=== PATIENT | male | born 1945 | race Caucasian/White ===

== ENCOUNTER 2019-06-05 06:00 | Outpatient (RCR) | payer OTHER, SELFPAY | END 2019-07-05 00:01 | LOC: PULRHB 06:00 | PROVIDERS: Family Provider Emergency Medicine Emergency Medical Services; Visit Provider Emergency Medicine Emergency Medical Services | DX: J44.9 Chronic obstructive pulmonary disease, unspecified (principal) | CPT/HCPCS: G0424 ×6 ==

== ENCOUNTER 2019-07-06 06:00 | Outpatient (RCR) | payer OTHER, SELFPAY | END 2019-08-05 23:59 | disposition home or self-care (01) | LOC: PULRHB 06:00 | PROVIDERS: Family Provider Emergency Medicine Emergency Medical Services; PCP Emergency Medicine Emergency Medical Services; Visit Provider Emergency Medicine Emergency Medical Services | DX: J44.9 Chronic obstructive pulmonary disease, unspecified (principal) | CPT/HCPCS: G0424 ==

== ENCOUNTER 2019-08-09 12:44 | Outpatient (RCR) | payer OTHER, SELFPAY | END 2019-09-03 23:59 | disposition home or self-care (01) | LOC: PULRHB 12:44 | PROVIDERS: Family Provider Emergency Medicine Emergency Medical Services; PCP Emergency Medicine Emergency Medical Services; Visit Provider Emergency Medicine Emergency Medical Services | DX: J44.9 Chronic obstructive pulmonary disease, unspecified (principal) | CPT/HCPCS: G0237; G0238; G0239; G0424 ==

== ENCOUNTER 2021-09-10 08:17 | Emergency (ER) | payer OTHER, MEDICARE, SELFPAY ==
--- NOTE | 2021-09-10 08:20 | ECG_ITS ---
[facility] Test Date: 2021-09-10 Pat Name: Clint Quevedo Department: Room: Gender: Male Hydramatic Specialist: : 1945 Requested By: Florentino Altamirano Order Number: [id number] Gino MD: Emmanuel Oshea M.D. Measurements Intervals [place] Rate: 67 P: 29 [place]: 168 QRS: 81 QRSD: 104 T: 7 QT: 376 QTc: 400 Interpretive Statements SINUS RHYTHM LOW QRS VOLTAGE IN PRECORDIAL LEADS [QRS DEFLECTION < 1.0 mV IN CHEST LEADS] Compared to ECG 09/10/2021 09:46:11 No significant changes Electronically Signed On 09-10-2021 17:33:40 INJECTION MOLDING SUPERVISOR by Emmanuel Oshea M.D. [id number]
--- NOTE | 2021-09-10 08:37 | ECG_ITS ---
[facility] Test Date: 2021-09-10 Pat Name: Clint Quevedo Department: Room: Gender: Male Vp Corporate Development: : 1945 Requested By: Nixon Aguilar Order Number: [id number] Gino MD: Emmanuel Oshea M.D. Measurements Intervals [place] Rate: 64 P: 24 DC: 165 QRS: 72 QRSD: 106 T: 12 QT: 380 QTc: 395 Interpretive Statements SINUS RHYTHM LOW QRS VOLTAGE IN PRECORDIAL LEADS [QRS DEFLECTION < 1.0 mV IN CHEST LEADS] Compared to ECG 09/13/2018 14:33:11 Sinus tachycardia no longer present T-wave abnormality no longer present Electronically Signed On 09-10-2021 17:33:52 HAND RIGGER by Emmanuel Oshea M.D. [id number]
--- NOTE | 2021-09-10 08:37 | XR_ITS ---
WS: [id number] PORTABLE CHEST HISTORY: Lower extremity edema. COMPARISON: 08/18/2007 Lungs are clear and well expanded. No pleural effusion or pneumothorax. Cardiac size: Normal. Mediastinum/Aorta: Normal mediastinum. No osseous abnormality seen. XR/XR chest 1V portable [id number] IMPRESSION: Unremarkable portable chest.
[2021-09-10 08:43] VITALS: BP 158/54; PULSE 68; RESP 26; TEMP 36.2; O2SAT 91; BMI 59.3
[2021-09-10 08:48] VITALS: BP 158/54; PULSE 70; RESP 24; TEMP 36.6; O2SAT 91
--- NOTE | 2021-09-10 09:04 | ED_ITS ---
HPI - SOB/Dyspnea General: Chief Complaint: Shortness of Breath/Dyspnea Stated Complaint: [facility] feet [facility] Time Seen by Provider: 09/10/21 08:19 History of Present Illness: HPI Narrative: Patient is a 76-year-old male who comes to the ED with shortness of breath and bilateral leg and feet swelling. Past medical history of diabetes, hypertensi on, hyperlipidemia and COPD. Patient does not require any oxygen at home. He has inhaler he uses for any shortness of breath. Pt was seen at [facility] and sent over here for further evaluation. Patient says for the past month he has had worsening shortness of breath and swelling in his feet bilaterally. He describes the shortness of breath as mild and slightly worse than his baseline. Shortness of breath worsens with exertion. He is unable to lay flat when he sleeps at night. Patient does have sleep apnea and was using a CPAP at night but stopped using it due to reoccurring nosebleeds. Denies any chest pain, cough, fever, chills, abdominal pain, nausea/vomiting, bladder or bowel symptoms. Associated symptoms: Reports orthopnea; Deny abdominal pain, chest pain, fever(s), nausea, palpitations or vomiting Review of Systems Const: Denies: fever(s), chills or fatigue Eyes: Denies: change in vision or eye discomfort ENMT: Denies: throat pain, odynophagia, nasal discharge or nasal congestion Card: Reports: swelling of feet/ankles, dyspnea on exertion and orthopnea; Denies: chest pain, palpitations or edema Resp: Reports: dyspnea; Denies: productive cough or non-productive cough GI: Denies: abdominal pain, nausea, vomiting, diarrhea, constipation or hematochezia : Denies: flank pain, difficulty urinating, dysuria or hematuria Musc: Denies: neck pain, back pain or extremity swelling Skin/Breast: Denies: rash or new lesions Neuro: Denies: headache(s), numbness in extremities or weakness in extremities [facility] ED PFSH: Medical History COPD (chronic obstructive pulmonary disease) Diabetes Hypertension Surgical History No pertinent past surgical history Physical Exam Const: COMMON NORMALS: patient oriented x3 and alert GENERAL APPEARANCE: cooperative and comfortable NUTRITIONAL APPEARANCE: obese HENMT: COMMON NORMALS: normocephalic HEAD & SCALP: normocephalic MOUTH: Normal oral and palatal mucosa present THROAT: posterior oropharynx normal and uvula midline Neck/C-Spine: COMMON NORMALS: supple GENERAL: Yes normal visual inspection Resp: COMMON NORMALS: normal respiratory effort, No retractions, No use of accessory muscles and clear to auscultation bilaterally AUSCULTATION: clear to auscultation bilaterally Cardio: COMMON NORMALS: regular rate, regular rhythm, S1 normal heart sound present, S2 normal heart sound present, No gallops present (Cardio), No clicks present (Cardio), No murmurs present (Cardio) and Peripheral pulses 2+ througho ut RATE: regular rate RHYTHM: regular rhythm HEART SOUNDS: S1 normal heart sound present and S2 normal heart sound present PERIPHERAL PULSES: Peripheral pulses 2+ throughout GI: COMMON NORMALS: Normal to inspection, nondistended, normoactive bowel sounds present, Soft to palpation, non-tender and no masses INSPECTION: Yes central obesity PALPATION: Yes Soft to palpation : COMMON NORMALS: Yes no CVA tenderness BLADDER/KIDNEY EXAM: Yes no CVA tenderness Back/Pelvis: COMMON NORMALS: no CVA tenderness Extremity: NARRATIVE EXTREMITY EXAM: 1+ pitting edema bilaterally in the lower extremities. Neuro: COMMON NORMALS: patient oriented x3 and moves all extremities SENSORIUM/ORIENTATION: Yes alert Skin: GENERAL SKIN EXAM: dry skin Course ED course: Home O2 study was performed on patient here in the ED and he did not qualify for oxygen. Vital Signs: Vital signs: Vital Signs Temperature 97.8 F 09/10/21 08:48 Pulse Rate 66 09/10/21 11:39 Respiratory Rate 24 H 09/10/21 11:39 Blood Pressure 177/76 09/10/21 11:39 Pulse Oximetry 90 09/10/21 11:39 MDM - SOB/Dyspnea Medical Decision Making Patient is a 76-year-old male comes to the ED with bilateral lower extremity edema and some shortness of breath. Patient has past medical history of COPD, diabetes and hypertension. Leg edema has been going on for the past month. He describes his shortness of breath is mild and a little worse than normal. Denies any chest pain. Vitals are stable. Patient had bilateral 1+ pitting edema in the lower extremities. CBC and CMP were unremarkable. Troponins negative. BNP was normal. Chest x-ray showed no acute findings. EKGs showed sinus rhythm with no ST segment elevation or depression seen. Home O2 eval was ordered and respiratory therapy said patient did not qualify for home oxygen. Patient was given IV Lasix while here in the ED to help with some of his edema. Patient was diagnosed with bilateral lower extremity edema and COPD and was discharged home with a prescription for some prednisone and furosemide to use as needed for edema. He was told to follow-up with his PCP in the next 3 to 5 days for reevaluation. Return to ED precautions given. Patient understood and agreed with plan. Lab Data I reviewed the patient's lab results. : 09/10/21 09:22 09/10/21 09:22 Labs/Radiology: Radiology Impressions Chest X-Ray 09/10/21 08:37 IMPRESSION: Unremarkable portable chest. Laboratory Results WBC 8.9 10^3/uL (4.0-10.0) 09/10/21: RBC 5.06 10^6/uL (4.1-5.3) 09/10/21 09:22 Hgb 12.5 g/dL (11.7-16.6) 09/10/21: Hct 47.1 % (42.0-52.0) 09/10/21: MCV 93.1 fl (80-94) 09/10/21 09: MCH 24.7 pg (28.0-34.0) L 09/10/21: MCHC 26.5 g/dL (30.0-36.0) L 09/10/21: RDW 15.1 % (12.1-15.1) 09/10/21: Plt Count 247 10^3/cmm (130-400) 09/10/21: MPV 10.0 fL (7.4-10.4) 09/10/21: Neut % (Auto) 74.5 % 09/10/21:22 Lymph % (Auto) 14.2 % 09/10/21:22 [place] % (Auto) 7.3 % 09/10/21: Eos % (Auto) 2.7 % 09/10/21:22 Baso % (Auto) 1.1 % 09/10/21 09: Neut # (Auto) 6.58 10^3/uL (1.8-7.7) 09/10/21 09: Lymph # (Auto) 1.3 10^3/uL (0.8-4.8) 09/10/21 09:22 [place] # (Auto) 0.7 10^3/uL (0.2-0.9) 09/10/21 09: Eos # (Auto) 0.2 10^3/uL (0.0-0.8) 09/10/21 09: Baso # (Auto) 0.1 10^3/uL (0.0-0.1) 09/10/21 09: Nucleated RBC % (auto) 0 % 09/10/21 09: Nucleated RBCs # 0.0 /100WBC 09/10/21 09:22 Sodium 138 mmol/L (136-145) 09/10/21 09: Potassium 4.3 mmol/L (3.5-5.1) 09/10/21 09: Chloride 97 mmol/L (98-107) L 09/10/21 09: Carbon Dioxide 30 mmol/L (22-29) H 09/10/21 09:22 Anion Gap 15.3 (5-19) 09/10/21 09:22 BUN 18 mg/dL (8-23) 09/10/21 09:22 Creatinine 1.1 mg/dL (0.7-1.2) 09/10/21 09:22 GFR Calculation Not Reportable 09/10/21 09: Glucose 139 mg/dL (65-115) H 09/10/21 09:22 Calculated Osmolality 290 mOsm/kg (285-295) 09/10/21 09: Calcium 9.5 mg/dL (8.5-10.5) 09/10/21 09:22 Total Bilirubin 0.4 mg/dL (0.15-1.2) 09/10/21 09:22 AST 18 U/L (0-40) 09/10/21 09:22 ALT 14 U/L (0-41) 09/10/21 09:22 Alkaline Phosphatase 65 IU/L (40-130) 09/10/21 09: Troponin T Baseline 19 ng/L (0-15) H 09/10/21 09:22 Troponin T 120 Minute 17.44 ng/L (0-15) H 09/10/21 11:30 Delta Troponin T -1.56 ABS# (0-10) L 09/10/21 11:30 NT-Pro-B Natriuret Pep 277 pg/mL (0-450) 09/10/21 09:22 Total Protein 6.9 g/dL (6.6-8.7) 09/10/21 09: Albumin 3.9 g/dL (3.5-5.2) 09/10/21 09: Globulin 3.0 g/dL (1.3-4.6) 09/10/21 09:22 Urine Color Yellow (Yellow) 09/10/21 10:00 Urine Appearance Clear (CLEAR) 09/10/21 10:00 Urine pH 7 (5-7) 09/10/21 10:00 Ur Specific [place] 1.005 (1.005-1.030) 09/10/21 10:00 Urine Protein Neg (Negative) 09/10/21 10:00 Urine Glucose (UA) Norm (Normal) 09/10/21 10:00 Urine Ketones Negative (Negative) 09/10/21 10:00 Urine Blood Neg (Negative) 09/10/21 10:00 Urine Nitrate Negative (Negative) 09/10/21 10:00 Urine Bilirubin Neg (Negative) 09/10/21 10:00 Urine Urobilinogen Norm mg/dL (Negative) 09/10/21 10:00 Ur Leukocyte Esterase 1+ (Negative) H 09/10/21 10:00 Urine RBC 0-4 /hpf (0-2) H 09/10/21 10:00 Urine WBC 5-10 /hpf (0-5) H 09/10/21 10:00 Ur Squamous Epith Cells 0-4 /hpf (0-5) H 09/10/21 10:00 Amorphous Sediment Not Reportable 09/10/21 10:00 Urine Bacteria Trace /hpf (NONE) 09/10/21 10:00 Hyaline Casts Rare /lpf 09/10/21 10:00 Urine Mucus Trace /hpf 09/10/21 10:00 EKG Data EKG 1: EKG Interpretation Date: 09/10/21 Interpretation: Sinus rhythm, no ST segment elevation or depression seen. 68 bpm. EKG 2: EKG Interpretation Date: 09/10/21 Interpretation: 2-hour EKG?sinus rhythm, 67 bpm, no ST segment elevation or depression noted. No changes seen comparing previous EKG to current one. Discharge Plan Discharge Patient Disposition: Home Clinical Impression: Bilateral lower extremity edema COPD (chronic obstructive pulmonary disease) Qualifiers: COPD type: unspecified COPD Qualified Code(s): J44.9 - Chronic obstructive pulmonary disease, unspecified Condition: Stable Prescriptions: New furosemide 20 mg tablet 20 mg PO QAM PRN (Reason: edema) Qty: 5 0RF prednisone 20 mg tablet 20 mg PO BID 3 Days Qty: 6 0RF Discharge Orders: Discharge ED (Routine); Ordered 09/10/21 Ordered By: Nixon Aguilar Referrals: Shukri Corral, [Primary Care Provider] - Discharge Diet: Regular Discharge Activity: Increase activity as tolerated Patient Instructions: COPD, Leg Edema (ED) Activity Restrictions/Additional Instructions: Follow-up with medical provider as directed in the next 5 to 7 days for reevaluation. Take medications as prescribed. You can start taking your first dose of prednisone today. Do not start your furosemide till tomorrow at the earliest, since you got a dose here in the ED. You can take the prescribed furosemide as needed daily for any leg edema. return to the ER or your medical provider if condition worsens. Please read and understand discharge instructions. Thank you for choosing [facility] for your healthcare needs today. Please realize this is an emergency room and that we are providing you with a medical screening exam and this may not be complete and all inclusive of all the testing and or work up that you may need to determine your ailment or severity of your illness. It is very important that you follow up as instructed or that you return to the Emergency Department should you have concerns or if your condition changes or worsens in any way. Coding Level of Care Code ED Station Worker for Umesh Mercado Exam Comprehensive
[2021-09-10 09:28] LABS: Basophils # 0.1 10^3/uL (0.0-0.1); Basophils % 1.1 %; Eosinophils # 0.2 10^3/uL (0.0-0.8); Eosinophils % 2.7 %; Hematocrit 47.1 % (42.0-52.0); Hemoglobin 12.5 g/dL (11.7-16.6); Lymphocytes # 1.3 10^3/uL (0.8-4.8); Lymphocytes % 14.2 %; Mean Corpuscular HGB Conc 26.5 g/dL (30.0-36.0); Mean Corpuscular Hemoglobin 24.7 pg (28.0-34.0); Mean Corpuscular Volume 93.1 fl (80-94); Monocytes # 0.7 10^3/uL (0.2-0.9); Monocytes % 7.3 %; Neutrophils # 6.58 10^3/uL (1.8-7.7); Neutrophils % 74.5 %; Nucleated Red Blood Cells % 0 %; Platelet Count 247 10^3/cmm (130-400); Red Blood Count 5.06 10^6/uL (4.1-5.3); Red Cell Distribution Width 15.1 % (12.1-15.1); White Blood Count 8.9 10^3/uL (4.0-10.0)
[2021-09-10 09:53] LABS: Troponin(5th) Baseline 19 ng/L (0-15)
[2021-09-10 09:58] LABS: Alanine Aminotransferase 14 U/L (0-41); Albumin Level 3.9 g/dL (3.5-5.2); Alkaline Phosphatase 65 IU/L (40-130); Anion Gap 15.3 (5-19); Aspartate Amino Transferase 18 U/L (0-40); Blood Urea Nitrogen 18 mg/dL (8-23); Calcium 9.5 mg/dL (8.5-10.5); Carbon Dioxide 30 mmol/L (22-29); Chloride 97 mmol/L (98-107); Glucose 139 mg/dL (65-115); NT Pro B Type Natriuretic Pept 277 pg/mL (0-450); Osmolality Calculated 290 mOsm/kg (285-295); Potassium 4.3 mmol/L (3.5-5.1); Sodium 138 mmol/L (136-145); Total Bilirubin 0.4 mg/dL (0.15-1.2); Total Protein 6.9 g/dL (6.6-8.7)
[2021-09-10] MEDS: FUROsemide 10 mg/mL SDV 2mL 20 MG IVP (10:30)
[2021-09-10 10:32] LABS: Glucose Urine UA Norm (Normal); Ketones Urine Negative (Negative); Protein Urine Neg (Negative); Specific Gravity, Urine 1.005 (1.005-1.030); Urine Appearance Clear (CLEAR); Urine Color Yellow (Yellow); pH Urine 7 (5-7)
[2021-09-10 10:33] LABS: Add Urine Microscopic? YES; Bilirubin Urine Neg (Negative); Blood Urine Neg (Negative); Leukocyte Esterase Urine 1+ (Negative); Nitrate Urine Negative (Negative); Urobilinogen Urine Norm (Negative)
[2021-09-10 10:37] VITALS: O2SAT 92; O2SAT 95
[2021-09-10 10:43] LABS: Add Urine Culture? No; Bacteria Urine TRACE /hpf; Hyaline Casts Urine RARE /lpf; Mucus Urine TRACE /hpf; RBC Urine 0-4 /hpf (0-2); Squamous Epithelial Cell Urine 0-4 /hpf (0-5)
[2021-09-10 11:39] VITALS: BP 177/76; PULSE 66; RESP 24; O2SAT 90
[2021-09-10 12:00] LABS: Troponin 5 2HR 17.44 ng/L (0-15)
[2021-09-10 12:03] LABS: Troponin 5 2HR Delta -1.56 ABS# (0-10)
== END 2021-09-10 12:50 | disposition home or self-care (01) ==
PROVIDERS: Family Medicine; Emergency Provider Physician Assistant; PCP Emergency Medicine Emergency Medical Services
DX: J44.9 Chronic obstructive pulmonary disease, unspecified (principal); R60.0 Localized edema; E11.9 Type 2 diabetes mellitus without complications; I10 Essential (primary) hypertension
CPT/HCPCS: 36415; 71045; 80053; 81001; 83880; 84484; 85025; 93005; 94760; 96374; 99284; J1940

== ENCOUNTER 2021-11-05 10:55 | Inpatient (IN) | payer OTHER, SELFPAY ==
[2021-11-05] VITALS (14 sets, daily range): BP systolic 140–173; BP diastolic 66–97; PULSE 59–100; RESP 17–22; TEMP 36.8–37.1; O2SAT 91–99; BMI 64.5
--- NOTE | 2021-11-05 11:13 | W.ED.SOB ---
HPI - SOB/Dyspnea General: Chief Complaint: Shortness of Breath/Dyspnea Stated Complaint: [facility] Time Seen by Provider: 11/05/21 11:12 History of Present Illness: HPI Narrative: Mr. Quevedo is a 76-year-old gentleman with significant past medical history of hypertension, hyperlipidemia, diabetes, likely heart failure, and chronic hypoxic respiratory failure on 2 L baseline who presents to the emergency department due to shortness of breath. [facility]. Apparently few months ago he was started on oxygen for shortness of breath especially with exertion and this had helped his symptoms until this morning when he became more short of breath. He denies associated infectious symptoms. has noticed perhaps more lower extremity edema though the patient himself is unsure how much worse this is than normal. He was previously taking Lasix just as needed and did not take it frequently. Overall course of symptoms has been worsening. Intensity is moderate to severe and worse with exertion. No other specific changes in health, exacerbating, or alleviating factors identified. Pertinent past history: COPD, congestive heart failure and diabetes Onset (ago): hour(s) Timing: constant Severity: moderate Exacerbating factors: exertion Associated symptoms: Reports no associated symptoms Review of Systems General: Reports: 10 or more systems reviewed and unremarkable except in HPI and below PFSH ED PFSH: Medical History Avascular necrosis of femoral head BPH (benign prostatic hyperplasia) COPD (chronic obstructive pulmonary disease) Diabetes Hypertension Obesity Surgical History History of cholecystectomy Family History (Updated 11/05/21 @ 16:35 by Madi Antonio MD) Father CAD (coronary artery disease) Mother Perforated viscus Social History Smoking and tobacco status: former smoker Physical Exam Const: COMMON NORMALS: alert GENERAL APPEARANCE: cooperative and well developed NUTRITIONAL APPEARANCE: obese HENMT: COMMON NORMALS: normocephalic and atraumatic HEAD & SCALP: normocephalic and atraumatic Eye: COMMON NORMALS: conjunctivae normal CONJUNCTIVA: Yes conjunctivae normal SCLERA: sclerae normal Neck/C-Spine: COMMON NORMALS: supple GENERAL: Yes trachea midline Resp: EFFORT & INSPECTION: Yes able to speak in complete sentences AUSCULTATION: wheezes (Mild end expiratory) and diminished lung sounds Cardio: COMMON NORMALS: regular rate and regular rhythm RATE: regular rate RHYTHM: regular rhythm GI: COMMON NORMALS: Soft to palpation PALPATION: Yes Soft to palpation and No Tenderness to palpation present (GI) PERCUSSION: normal to percussion Extremity: GENERAL: Yes normal exam except as noted and Yes edema (2+ to 3+ bilateral lower extremity) Neuro: COMMON NORMALS: moves all extremities SENSORIUM/ORIENTATION: Yes alert and No Orientation impaired Psych: COMMON NORMALS: mental status grossly normal and Normal thought process present THOUGHT PROCESS: Normal thought process present Course ED course: - Patient was seen and evaluated by me at bedside - Patient placed on cardiac monitors, IV access obtained - Initial evaluation notable for exam as above. - Labs and xrays personally interpreted by me. EKG from 1154 personally interpreted shows left bundle branch block, sinus rhythm, no STEMI. There are EKGs from recently that do not show bundle-branch block -RT treatment ordered - Labs notable for no leukocytosis, normocytic anemia. Metabolic panel without acute derangement, renal function borderline. BNP mildly elevated, delta troponin is negative. - Imaging notable for no pneumonia or pneumothorax -Lasix given - Upon serial reexamination after treatment the patient was similar - Based on patient history, evaluation, and testing as interpreted the most likely cause of the patient's condition is shortness of breath and uncertain etiology. Additionally patient has new onset left bundle branch block though in the context of negative delta troponin I do not believe that the patient needs to emergently go to [facility] from the ED - The results of ED evaluation were discussed with the patient including plan for admission due to requirement for level of care not available if discharged to prevent significant worsening/deterioration. Specifically the patient has marked limitation in exertional tolerance and essentially any activity including ADLs causes worsening shortness of breath. - Admitting service was contacted and Dr Antonio with the hospitalist service agreed to admit the patient - Patient was admitted without further deterioration or significant events. Note: Click bubbles or prepopulated verma in note writing are used for assistance with data collection and billing and are inherently more limited than narrative and other text portions of this note. Please use narrative for additional clinical history and defer to narrative/free test for any case of contradictory information. If information appears in only free text or click bubble it should be considered present or absent as reported. Please contact note magnetic tape typewriter operator for clarifications of clinical information or contradictory information. MDM is a brief summary, contradictory or erroneous seeming information should be clarified and full note should be reviewed. Vital Signs: Vital signs: Vital Signs Temperature 97.6 F 11/07/21 20:00 Pulse Rate 68 11/07/21 20:52 Respiratory Rate 24 H 11/07/21 20:52 Blood Pressure 148/65 11/07/21 20:00 Pulse Oximetry 95 11/07/21 20:52 MDM - SOB/Dyspnea Medical Decision Making 76-year-old gentleman without history of diagnosed heart disease presenting with worsening shortness of breath and edema. Patient found to have peripheral edema, no negative delta troponin. There is a new left bundle branch block. Offered possible disposition options though recommended admission which patient is agreeable with. Admitted for further cardiac evaluation and evaluation of edema with worsening shortness of breath. Medical Records I reviewed the patient's medical records. Lab Data I reviewed the patient's lab results. : 11/07/21 04:26 11/07/21 04:26 Labs/Radiology: Radiology Impressions Chest X-Ray 11/05/21 11:23 IMPRESSION: No acute findings. Laboratory Results WBC 11.2 10^3/uL (4.0-10.0) H 11/06/21 04:20 RBC 4.74 10^6/uL (4.1-5.3) 11/06/21 04:20 Hgb 11.6 g/dL (11.7-16.6) L 11/06/21 04:20 Hct 43.2 % (42.0-52.0) 11/06/21 04:20 MCV 91.1 fl (80-94) 11/06/21 04:20 MCH 24.5 pg (28.0-34.0) L 11/06/21 04:20 MCHC 26.9 g/dL (30.0-36.0) L 11/06/21 04:20 RDW 15.5 % (12.1-15.1) H 11/06/21 04:20 Plt Count 236 10^3/cmm (130-400) 11/06/21 04:20 MPV 10.4 fL (7.4-10.4) 11/06/21 04:20 Neut % (Auto) 74.1 % 11/06/21 04:20 Lymph % (Auto) 12.1 % 11/06/21 04:20 [place] % (Auto) 9.6 % 11/06/21 04:20 Eos % (Auto) 3.1 % 11/06/21 04:20 Baso % (Auto) 0.7 % 11/06/21 04:20 Neut # (Auto) 8.29 10^3/uL (1.8-7.7) H 11/06/21 04:20 Lymph # (Auto) 1.4 10^3/uL (0.8-4.8) 11/06/21 04:20 [place] # (Auto) 1.1 10^3/uL (0.2-0.9) H 11/06/21 04:20 Eos # (Auto) 0.4 10^3/uL (0.0-0.8) 11/06/21 04:20 Baso # (Auto) 0.1 10^3/uL (0.0-0.1) 11/06/21 04:20 Nucleated RBC % (auto) 0 % 11/06/21 04:20 Nucleated RBCs # 0.0 /100WBC 11/06/21 04:20 Sodium 143 mmol/L (136-145) 11/06/21 04:20 Potassium 4.1 mmol/L (3.5-5.1) 11/06/21 04:20 Chloride 96 mmol/L (98-107) L 11/06/21 04:20 Carbon Dioxide 34 mmol/L (22-29) H 11/06/21 04:20 Anion Gap 17.1 (5-19) 11/06/21 04:20 BUN 18 mg/dL (8-23) 11/06/21 04:20 Creatinine 1.2 mg/dL (0.7-1.2) 11/06/21 04:20 GFR Calculation Not Reportable 11/06/21 04:20 Glucose 124 mg/dL (65-115) H 11/06/21 04:20 POC Glucose 140 mg/dL (70-110) H 11/06/21 06:35 Estimat Average Glucose 146 11/06/21 04:20 Hemoglobin A1c 6.7 % (4.0-6.0) H 11/06/21 04:20 Calculated Osmolality 299 mOsm/kg (285-295) H 11/06/21 04:20 Lactate 1.0 mmol/L (0.5-2.2) 11/05/21 13:30 Calcium 9.7 mg/dL (8.5-10.5) 11/06/21 04:20 Phosphorus 3.6 mg/dL (2.5-4.5) 11/06/21 04:20 Magnesium 2.0 mg/dL (1.7-2.3) 11/06/21 04:20 Total Bilirubin 0.6 mg/dL (0.15-1.2) 11/06/21 04:20 AST 19 U/L (0-40) 11/06/21 04:20 ALT 18 U/L (0-41) 11/06/21 04:20 Alkaline Phosphatase 77 IU/L (40-130) 11/06/21 04:20 Troponin T Gen 5 ng/L 20 ng/L (0-15) H 11/06/21 04:20 Troponin T Baseline 17 ng/L (0-15) H 11/05/21 13:30 Troponin T 120 Minute 18.24 ng/L (0-15) H 11/05/21 16:15 Delta Troponin T 1.24 ABS# (0-10) 11/05/21 16:15 NT-Pro-B Natriuret Pep 532 pg/mL (0-450) H 11/06/21 04:20 NT-Pro-B Natriuret Pep Cancelled 11/06/21 04:20 Total Protein 7.1 g/dL (6.6-8.7) 11/06/21 04:20 Albumin 3.9 g/dL (3.5-5.2) 11/06/21 04:20 Globulin 3.2 g/dL (1.3-4.6) 11/06/21 04:20 Triglycerides 165 mg/dL (0-150) H 11/06/21 04:20 Triglycerides Cancelled 11/06/21 04:20 Cholesterol 142 mg/dL (0-200) 11/06/21 04:20 Cholesterol Cancelled 11/06/21 04:20 LDL Cholesterol, Calc 72 mg/dL (50-129) 11/06/21 04:20 LDL Cholesterol, Calc Cancelled 11/06/21 04:20 HDL Cholesterol 37 mg/dL (60-100) L 11/06/21 04:20 HDL Cholesterol Cancelled 11/06/21 04:20 LDL/HDL Ratio 1.95 RATIO (0.00-3.22) 11/06/21 04:20 LDL/HDL Ratio Cancelled 11/06/21 04:20 Cholesterol/HDL Ratio 3.84 mg/dL (1.0-5.00) 11/06/21 04:20 Cholesterol/HDL Ratio Cancelled 11/06/21 04:20 TSH 1.84 uIU/mL (0.27-4.20) 11/05/21 16:15 Discharge Plan Discharge Patient Disposition: Placed in Observation Admit Provider: Madi Antonio Clinical Impression: Shortness of breath, Leg edema, New onset left bundle branch block (LBBB) Coding Level of Care Code ED Monologist for Chg Fwd Exam Comprehensive
--- NOTE | 2021-11-05 11:23 | XRR_ITS ---
PROCEDURE INFORMATION: Exam: XR Chest Exam date and time: 11/05/2021 11:35 AM Age: 76 years old Clinical indication: Shortness of breath; Additional info: SOB TECHNIQUE: Imaging protocol: XR of the chest. Views: 1 view. COMPARISON: CR XR chest 1V portable [id number] 09/10/2021 8:58 AM FINDINGS: Lungs: Unremarkable. No consolidation. Pleural spaces: Unremarkable. No pleural effusion. No pneumothorax. Heart/Mediastinum: Unremarkable. No cardiomegaly. Bones/joints: Unremarkable. XR/XR chest 1V portable [id number] IMPRESSION: No acute findings.
--- NOTE | 2021-11-05 11:24 | ECG_ITS ---
[facility] Test Date: 2021-11-05 Pat Name: Clint Quevedo Department: Room: Gender: Male Plant Physiology Teacher: : 1945 Requested By: Con Gao Order Number: [id number] Gino MD: Emmanuel Oshea M.D. Measurements Intervals [place] Rate: 73 P: 44 DC: 195 QRS: -46 QRSD: 159 T: 86 QT: 407 QTc: 451 Interpretive Statements SINUS RHYTHM LEFT AXIS DEVIATION [QRS AXIS < -30] LEFT BUNDLE BRANCH BLOCK [120+ ms QRS DURATION, 80+ ms Q/S IN V1/V2, 85+ ms R IN I/aVL/V5/V6] Compared to ECG 09/10/2021 10:35:27 Left-axis deviation now present Left bundle-branch block now present Electronically Signed On 11-05-2021 20:48:46 CDT by Emmanuel Oshea M.D. [id number]
[2021-11-05] MEDS: ipratropium-albuterol 3 mL Neb INHALATION (11:49)
[2021-11-05 12:17] LABS: Basophils # 0.1 10^3/uL (0.0-0.1); Basophils % 0.7 %; Eosinophils # 0.2 10^3/uL (0.0-0.8); Eosinophils % 2.2 %; Hematocrit 41.7 % (42.0-52.0); Hemoglobin 11.5 g/dL (11.7-16.6); Lymphocytes # 1.1 10^3/uL (0.8-4.8); Lymphocytes % 11.1 %; Mean Corpuscular HGB Conc 27.6 g/dL (30.0-36.0); Mean Corpuscular Hemoglobin 24.9 pg (28.0-34.0); Mean Corpuscular Volume 90.5 fl (80-94); Mean Platelet Volume 10.9 fL (7.4-10.4); Monocytes # 0.7 10^3/uL (0.2-0.9); Monocytes % 7.4 %; Neutrophils # 7.59 10^3/uL (1.8-7.7); Neutrophils % 78.3 %; Nucleated Red Blood Cells % 0 %; Platelet Count 264 10^3/cmm (130-400); Red Blood Count 4.61 10^6/uL (4.1-5.3); Red Cell Distribution Width 15.8 % (12.1-15.1); White Blood Count 9.7 10^3/uL (4.0-10.0)
[2021-11-05] MEDS: FUROsemide 10 mg/mL SDV 4mL 40 MG IVP ×2 (14:03→20:47)
[2021-11-05 14:05] LABS: Troponin(5th) Baseline 17 ng/L (0-15)
[2021-11-05 14:12] LABS: Albumin Level 3.5 g/dL (3.5-5.2); Alkaline Phosphatase 71 IU/L (40-130); Blood Urea Nitrogen 19 mg/dL (8-23); Calcium 8.5 mg/dL (8.5-10.5); Carbon Dioxide 27 mmol/L (22-29); Chloride 98 mmol/L (98-107); Globulin 3.2 g/dL (1.3-4.6); Glucose 121 mg/dL (65-115); Osmolality Calculated 288 mOsm/kg (285-295); Sodium 137 mmol/L (136-145); Total Bilirubin 0.5 mg/dL (0.15-1.2); Total Protein 6.7 g/dL (6.6-8.7)
[2021-11-05 14:13] LABS: Alanine Aminotransferase 18 U/L (0-41); Anion Gap 16.5 (5-19); Aspartate Amino Transferase 23 U/L (0-40); Potassium 4.5 mmol/L (3.5-5.1)
--- NOTE | 2021-11-05 16:31 | PM.HP ---
Providers/Chief Complaint Primary Care Provider: Shukri Corral DO Chief Complaint: [facility] unspecified History of Present Illness Clint Quevedo is a 76 year old male with a prior history of smoking, COPD, history of bilateral lower extremity edema, history of fzl-[id number] type 2 diabetes mellitus, BPH, hypertension, hyperlipidemia, who presents to [facility] due to worsening shortness of breath and lower extremity edema. Patient tells me that over the last year he has developed more significant bilateral extremity edema. But recently over the last few days he has developed significant worsening of lower extremity edema, he is states he has gained over 100 pounds in the last year. He has been also more short of breath, with exertion. He uses oxygen as needed at home. No history of CPAP use. No history of BiPAP use. Denies any chest pain. No palpitations. No cardiovascular history. No fever. Does have a chronic cough. No sick contacts, has received all 3 COVID vaccines, flu vaccine, no cardiovascular history Review of Systems Const: Denies: fever(s), chills, fatigue or malaise Eyes: Denies: change in vision or blurry vision ENMT: Denies: nasal congestion Resp: Denies: wheezing GI: Denies: abdominal pain, nausea, vomiting, diarrhea or hematochezia : Denies: dysuria Musc: Denies: back pain Neuro: Denies: dizziness Endo: Denies: polyuria or polydipsia Medications/Allergies Home Medications Medication Instructions Recorded Confirmed Last Taken Type furosemide 20 mg tablet 20 mg PO QAM PRN #5 tab 09/10/21 11/05/21 Unknown Rx albuterol sulfate 90 mcg/actuation 2 puff INHALATION QID PRN 11/05/21 11/05/21 Unknown History aerosol inhaler ferrous sulfate 325 mg (65 mg 325 mg PO DAILY 11/05/21 11/05/21 11/05/21 History iron) tablet finasteride 5 mg tablet 5 mg PO DAILY 11/05/21 11/05/21 11/04/21 History fluticasone 250 mcg-salmeterol 50 1 inh INHALATION BID 11/05/21 11/05/21 Unknown History mcg/dose blistr powdr for inhalation (Advair Diskus) metformin 1,000 mg tablet 500 mg PO DAILY 11/05/21 11/05/2111/05/22 History metoprolol tartrate 100 mg tablet 50 mg PO BID 11/05/21 11/05/21 11/05/21 History nystatin 100,000 unit/gram topical 1 applic TOPICAL TID PRN 11/05/21 11/05/21 Unknown History cream pantoprazole 40 mg tablet,delayed 40 mg PO DAILY 11/05/21 11/05/21 11/05/21 History release rosuvastatin 10 mg tablet 5 mg PO DAILY 11/05/21 11/05/21 11/04/21 History tamsulosin 0.4 mg capsule 0.8 mg PO DAILY 11/05/21 11/05/21 11/05/21 History zinc oxide 20 % topical ointment 1 applic TOPICAL TID PRN 11/05/21 11/05/21 Unknown History Allergies Allergy/AdvReac Type Severity Reaction Status Date / Time No Known Allergies Allergy Verified 11/05/21 11:02 PFSH Acute PFSH: Medical History Avascular necrosis of femoral head BPH (benign prostatic hyperplasia) COPD (chronic obstructive pulmonary disease) Diabetes Hypertension Obesity Surgical History History of cholecystectomy Family History (Updated 11/05/21 @ 16:35 by Madi Antonio MD) Father CAD (coronary artery disease) Mother Perforated viscus Social History Smoking and tobacco status: former smoker Vitals/I&O/Wt Last Vital Signs Temp 98.7 F 11/05/21 11:04 Pulse 72 11/05/21 14:00 Resp 18 11/05/21 14:00 BP 141/90 11/05/21 14:00 Pulse Ox 95 11/05/21 14:00 Weight last 48 hrs Weight 165.108 kg Physical Exam Const: COMMON NORMALS: no acute distress and patient oriented x3 HENMT: COMMON NORMALS: normocephalic HEAD & SCALP: normocephalic Eye: COMMON NORMALS: Equal, round and reactive pupils present and EOMs intact bilaterally Neck/C-Spine: COMMON NORMALS: full ROM, no lymphadenopathy and no JVD Resp: COMMON NORMALS: normal respiratory effort, No retractions, No use of accessory muscles and clear to auscultation bilaterally AUSCULTATION: clear to auscultation bilaterally Cardio: COMMON NORMALS: regular rate, regular rhythm, S1 normal heart sound present and S2 normal heart sound present RATE: regular rate RHYTHM: regular rhythm HEART SOUNDS: S1 normal heart sound present and S2 normal heart sound present GI: COMMON NORMALS: Normal to inspection, nondistended, normoactive bowel sounds present, Soft to palpation and non-tender Extremity: NARRATIVE EXTREMITY EXAM: 2+ pitting edema bilateral lower extremities Neuro: COMMON NORMALS: patient oriented x3, CN's II-XII intact bilaterally, moves all extremities and no focal motor deficits Psych: COMMON NORMALS: mental status grossly normal Data : 11/05/21 12:09 11/05/21 13:30 A&P Assessment and plan (1) Shortness of breath: Status: Acute (2) Leg edema: Status: Acute (3) New onset left bundle branch block (LBBB): Status: Acute Plan Bilateral lower extremity edema, with shortness of breath concerning for fluid overload -Highly likely suspicious for diastolic CHF exacerbation -We will order echocardiogram -Lasix 40 mg IV twice daily -Fluid restrictions at 1000 cc -Maintain potassium greater than 4, magnesium greater than 2 -Encourage ambulation -DNR/DNI, confirmed with patient, family at bedside -Lovenox for DVT prophylaxis New onset left bundle branch block -No complaints of chest pain -Serial EKGs, serial troponins -Cardiac echo -Aspirin, statin, beta-cyn Type 2 diabetes mellitus, low-dose sliding scale COPD not in exacerbation, DuoNeb as needed Attestations Medical Necessity Statement*: Patient requires hospitalization, outpatient with observation, for bilateral extremity edema, fluid overload Coding Level of Care Code Acute Outer Diameter Technician for Chg Fwd Diagnoses Shortness of breath R06.02 Leg edema R60.0 New onset left bundle branch block (LBBB) I44.7
[2021-11-05 17:12] LABS: NT Pro B Type Natriuretic Pept 570 pg/mL (0-450); Thyroid Stimulating Hormone 1.84 uIU/mL (0.27-4.20); Troponin 5 2HR 18.24 ng/L (0-15)
[2021-11-05 17:17] LABS: Troponin 5 2HR Delta 1.24 ABS# (0-10)
--- NOTE | 2021-11-05 17:24 | ECG_ITS ---
[facility] Test Date: 2021-11-05 Pat Name: Clint Quevedo Department: Room: 102 Gender: Male Cyber Operator: : 1945 Requested By: Con Gao Order Number: [id number] Gino MD: Emmanuel Oshea M.D. Measurements Intervals [place] Rate: 63 P: 78 MD: 217 QRS: -48 QRSD: 170 T: 87 QT: 452 QTc: 465 Interpretive Statements SINUS RHYTHM WITH FIRST DEGREE AV BLOCK LEFT AXIS DEVIATION [QRS AXIS < -30] LEFT BUNDLE BRANCH BLOCK [120+ ms QRS DURATION, 80+ ms Q/S IN V1/V2, 85+ ms R IN I/aVL/V5/V6] Compared to ECG 11/05/2021 11:54:32 First degree AV block now present Electronically Signed On 11-05-2021 22:33:10 CDT by Emmanuel Oshea M.D. [email or web address].[email or web address]/store/[id number]
--- NOTE | 2021-11-05 17:47 | USCV_ITS ---
Clint Quevedo Age: 76 Gender: M : 1945 Exam Date: 11/05/2021 18:57 Ordering Phys: Madi Antonio MD Technologist: CKArlen Exam Location: [facility] [place] Indication: Shortness of breath BP: 172 / 66 HR: 70 Rhythm: Sinus Technical Quality: Adequate MEASUREMENTS (Male / Female) Normal Values 2D ECHO LV Diastolic Diameter PLAX 4.2 cm 4.2 - 5.9 / 3.9 - 5.3 cm LV Systolic Diameter PLAX 2.2 cm IVS Diastolic Thickness 0.9 cm 0.6 - 1.0 / 0.6 - 0.9 cm IVS Systolic Thickness 0.9 cm LVPW Diastolic Thickness 1.4 cm 0.6 - 1.0 / 0.6 - 0.9 cm LVPW Systolic Thickness 1.4 cm LVOT Diameter 1.9 cm LV Ejection Fraction 2D Teich 79.7 % LV Ejection Fraction MOD 2C 66.8 % LV Ejection Fraction 2C AL 68.9 % LA Diameter 3.6 cm Aorta at Sinotubular Diameter 2.1 cm M-MODE Aortic Annulus Diameter 2.9 cm LA Ao Ratio MM 1.2 DOPPLER AV Peak Velocity 122.7 cm/s LVOT Peak Velocity 123.0 cm/s AV Area Cont Eq vti 3.5 cm squared AV Area Cont Eq pk 2.8 cm squared MV Peak Velocity 134.0 cm/s MV Area PHT 3.5 cm squared Mitral E to A Ratio 1.3 MV E' Velocity 131.0 cm/s TR Peak Velocity 213.1 cm/s TR Peak Gradient 18.2 mmHg TR Mean Velocity 84.1 cm/s TR Mean Gradient 3.3 mmHg TR Velocity Time Integral 29.4 cm Right Atrial Pressure 15.0 mmHg Pulmonary Artery Systolic Pressu 33.2 mmHg PV Peak Velocity 167.0 cm/s RV Acceleration Time 0.1 s RV Ejection Time 0.3 s RV AcT/ET 0.3 FINDINGS Left Ventricle Normal left ventricular cavity size. Normal left ventricular systolic function. Left ventricular ejection fraction is estimated at 60%. Abnormal septal motion consistent with conduction abnormality. Right Ventricle Right ventricle not well visualized. Probably normal right ventricle size and systolic function. Right Atrium Right atrium not well visualized. Right atrial pressure estimated at 8 mmHg. Left Atrium Left atrium not well visualized. Mitral Valve Mitral valve not well visualized. No mitral valve stenosis. No significant mitral valve regurgitation. Aortic Valve Aortic valve not well visualized. No aortic valve stenosis. No aortic valve regurgitation. Tricuspid Valve Tricuspid valve not well visualized. Pulmonic Valve Pulmonic valve not well visualized. No significant pulmonary valve regurgitation. Pericardium No pericardial effusion. Aorta Normal size aortic root and proximal ascending aorta. Normal- sized inferior vena cava with decreased respiratory variation. CONCLUSIONS 1. This is a technically difficult study. Ultrasound enhancing agent Optison was used per protocol. 2. Normal left ventricular cavity size and systolic function. Left ventricular ejection fraction is estimated at 60%. Abnormal septal motion consistent with conduction abnormality. 3. Probably normal right ventricle size and systolic function. 4. No prior similar studies to compare. Tiffanie Flores MD (Electronically Signed) Final Date: 06 Nov 2021 12:06 S
[2021-11-05] MEDS: enoxaparin 40 mg/0.4 mL Syringe SUBCUT (20:46)
[2021-11-05] MEDS: metoprolol tartrate 50 mg Tablet PO (20:48)
[2021-11-05 22:29] LABS: Glucose Point of Care 112 mg/dL (70-110)
[2021-11-06] VITALS (11 sets, daily range): BP systolic 121–172; BP diastolic 62–81; PULSE 64–112; RESP 16–25; TEMP 36.6–36.8; O2SAT 93–96
--- NOTE | 2021-11-06 01:12 | PC.NURSE ---
pt refused to allow offset label rewinder to draw 6h troponin. notified Dr Gonzales of pt refusal, reason for admission, and previous troponin results. order received to draw troponin level with AM labs this AM.
[2021-11-06 05:24] LABS: Basophils # 0.1 10^3/uL (0.0-0.1); Basophils % 0.7 %; Eosinophils # 0.4 10^3/uL (0.0-0.8); Eosinophils % 3.1 %; Hematocrit 43.2 % (42.0-52.0); Hemoglobin 11.6 g/dL (11.7-16.6); Lymphocytes # 1.4 10^3/uL (0.8-4.8); Lymphocytes % 12.1 %; Mean Corpuscular HGB Conc 26.9 g/dL (30.0-36.0); Mean Corpuscular Hemoglobin 24.5 pg (28.0-34.0); Mean Corpuscular Volume 91.1 fl (80-94); Mean Platelet Volume 10.4 fL (7.4-10.4); Monocytes # 1.1 10^3/uL (0.2-0.9); Monocytes % 9.6 %; Neutrophils # 8.29 10^3/uL (1.8-7.7); Neutrophils % 74.1 %; Nucleated Red Blood Cells % 0 %; Platelet Count 236 10^3/cmm (130-400); Red Blood Count 4.74 10^6/uL (4.1-5.3); Red Cell Distribution Width 15.5 % (12.1-15.1); White Blood Count 11.2 10^3/uL (4.0-10.0)
[2021-11-06 05:53] LABS: Troponin T (5th) Once 20 ng/L (0-15)
[2021-11-06 06:05] LABS: Alanine Aminotransferase 18 U/L (0-41); Albumin Level 3.9 g/dL (3.5-5.2); Alkaline Phosphatase 77 IU/L (40-130); Anion Gap 17.1 (5-19); Aspartate Amino Transferase 19 U/L (0-40); Blood Urea Nitrogen 18 mg/dL (8-23); Calcium 9.7 mg/dL (8.5-10.5); Carbon Dioxide 34 mmol/L (22-29); Chloride 96 mmol/L (98-107); Chol HDL Ratio 3.84 mg/dL (1.0-5.00); Cholesterol 142 mg/dL (0-200); Globulin 3.2 g/dL (1.3-4.6); Glucose 124 mg/dL (65-115); HDL Cholesterol 37 mg/dL (60-100); LDL Cholesterol Calculated 72 mg/dL (50-129); LDL HDL Ratio 1.95 RATIO (0.00-3.22); NT Pro B Type Natriuretic Pept 532 pg/mL (0-450); Osmolality Calculated 299 mOsm/kg (285-295); Phosphorus 3.6 mg/dL (2.5-4.5); Potassium 4.1 mmol/L (3.5-5.1); Sodium 143 mmol/L (136-145); Total Bilirubin 0.6 mg/dL (0.15-1.2); Total Protein 7.1 g/dL (6.6-8.7); Triglycerides 165 mg/dL (0-150)
[2021-11-06 06:06] LABS: Estmated Average Glucose 146; Hemoglobin A1C 6.7 % (4.0-6.0)
[2021-11-06 06:45] LABS: Glucose Point of Care 140 mg/dL (70-110)
--- NOTE | 2021-11-06 07:07 | PC.NURSE ---
received bedside report. pt sitting on side of bed, in no distress. no needs identified at this time. reviewed poc and assumed care of patient.
--- NOTE | 2021-11-06 08:37 | PM.PN ---
Subjective Subjective: Patient was seen this morning, continues to have bilateral lower extreme edema, some shortness of breath, he tells me he feels a lot better, but he tells me that he peed all night Vitals/I&O/Wt Last Vital Signs Temp 98.3 F 11/06/21 04:20 Pulse 66 11/06/21 05:39 Resp 25 H 11/06/21 04:20 BP 172/81 11/06/21 04:20 Pulse Ox 95 11/06/21 04:20 11/05/21 11/06/21 11/06/21 22:59 06:59 14:59 Intake Total 240 / 240 120 / 360 Balance 240 / 240 120 / 360 Weight last 48 hrs Weight 165.108 kg Physical Exam Const: COMMON NORMALS: no acute distress and patient oriented x3 Resp: COMMON NORMALS: normal respiratory effort, No retractions, No use of accessory muscles and clear to auscultation bilaterally AUSCULTATION: clear to auscultation bilaterally GI: COMMON NORMALS: Normal to inspection, nondistended, normoactive bowel sounds present, Soft to palpation, non-tender and No hepatosplenomegaly present PALPATION: Yes Soft to palpation and Yes No hepatosplenomegaly present Neuro: COMMON NORMALS: patient oriented x3 Skin: NARRATIVE SKIN EXAM: 2+ pitting edema bilateral lower extremities Data : 11/06/21 04:20 11/06/21 04:20 A&P Assessment and plan (1) Diastolic CHF, acute: Status: Acute (2) Shortness of breath: Status: Acute (3) Leg edema: Status: Acute (4) New onset left bundle branch block (LBBB): Status: Acute Plan Bilateral lower extremity edema, with shortness of breath concerning for fluid overload -Highly likely suspicious for diastolic CHF exacerbation -We will order echocardiogram -Lasix 40 mg IV twice daily, add metolazone 1 dose, -Add spironolactone 25 mg once daily -Fluid restrictions at 1000 cc -Maintain potassium greater than 4, magnesium greater than 2 -Encourage ambulation -DNR/DNI, confirmed with patient, family at bedside -Lovenox for DVT prophylaxis New onset left bundle branch block -No complaints of chest pain -Serial EKGs, serial troponins -Cardiac echo -Aspirin, statin, beta-cyn Type 2 diabetes mellitus, low-dose sliding scale COPD not in exacerbation, DuoNeb as needed Attestations Medical Necessity Statement*: Patient requires hospitalization for fluid overload, requiring diuresis Coding Level of Care Code Acute Instructor Psychiatric Aide for g Fwd Diagnoses Diastolic CHF, acute I50.31 Shortness of breath R06.02 Leg edema R60.0 New onset left bundle branch block (LBBB) I44.7
[2021-11-06] MEDS: finasteride 5 mg Tablet PO (08:51)
[2021-11-06] MEDS: metoprolol tartrate 50 mg Tablet PO ×2 (08:51→17:49)
[2021-11-06] MEDS: metOLazone 5 MG Tablet PO (08:51)
[2021-11-06] MEDS: spironolactone 25 mg Tablet PO (08:51)
[2021-11-06] MEDS: pantoprazole DR 40 mg Tablet PO (08:51)
[2021-11-06] MEDS: potassium chloride ER 20 mEq Tablet PO ×2 (08:52→19:55)
[2021-11-06] MEDS: FUROsemide 10 mg/mL SDV 4mL 40 MG IVP ×2 (08:52→19:55)
[2021-11-06] MEDS: tamsulosin 0.4 mg Capsule 0.8 MG PO (08:52)
[2021-11-06] MEDS: atorvastatin 40 mg Tablet 20 MG PO (08:52)
[2021-11-06] MEDS: ferrous sulfate EC 325 mg Tablet PO (08:52)
[2021-11-06] MEDS: aspirin 81 mg EC Tablet PO (08:52)
--- NOTE | 2021-11-06 10:20 | PC.CHAP ---
Pastoral Care Encounter/Spiritual Assessment Type of Contact [] Declined project manager industrial visit [] Patient/Family/Request visit [] Outpatient visit [] Follow-up visit [] Physician referral [] Code/Alert [x] Routine visit [] Staff referral [] Actively dying [] Patient sleeping [x] Family support [] [] Out of room [] Palliative care [] [] Receiving care in room [] Pre-surgical visit [] Trauma [] Long length of stay [] ICU visit [] Other: Relational/Emotional Strength [] Patient feels connected with others/family/visitors/staff [] Distress [] Loneliness/isolation [] Abandonment Spirituality of Patient [] Person of Disha [] Attends Baptism of their Disha [] Believes in Prayer [] Reads Bible or Druze materials [] There are Spiritual issues to be addressed Dry Cure Worker Interventions [x] Prayer [x] Active listening [x] Non-anxious presence [x] Spiritual/emotional support [] Crisis/trauma care [] Spiritual counseling [] Bereavement support [] Provided bereavement packet [] Provided Bible/devotional materials [] Provided toy/stuffed animal, coloring book to patient or family member [] Provided Communion [] Anointing/[place] [] Salvation [x] Completed spiritual assessment [] Other: Impact on Illness or Injury [] Angry [] Fearful [] Anxious [] Often cries [] Exhaustion [] Unable to work [] Unable to attend uatsdin [] Unable to walk/stand [] Unable to read [] Unable to drive [] Unable to eat/drink [] Unable to sleep [] Unable to be with family [] Patient intubated [] Other: Summary resting well, finished breakfast Time spent with patient 10 min
[2021-11-06 11:20] LABS: Glucose Point of Care 126 mg/dL (70-110)
[2021-11-06 11:20] LABS: Glucose Point of Care 350 mg/dL (70-110)
[2021-11-06] MEDS: enoxaparin 40 mg/0.4 mL Syringe SUBCUT (17:43)
--- NOTE | 2021-11-06 19:55 | PC.NURSE ---
Addendum entered by Bianca Dailey RN 11/06/21 20:02: Patient refusing to use urinal. Patient asks for hat to be placed in toilet for urine measurement. Will measure output as able to. Original Note: Patient educated to use urinal instead of toilet in order to measure urine output.
[2021-11-06 20:26] LABS: Glucose Point of Care 163 mg/dL (70-110)
[2021-11-07] VITALS (11 sets, daily range): BP systolic 141–179; BP diastolic 60–86; PULSE 68–92; RESP 18–25; TEMP 36.4–37; O2SAT 93–98
[2021-11-07 06:13] LABS: Basophils # 0.1 10^3/uL (0.0-0.1); Basophils % 0.7 %; Eosinophils # 0.4 10^3/uL (0.0-0.8); Eosinophils % 4.2 %; Hematocrit 44.4 % (42.0-52.0); Hemoglobin 11.9 g/dL (11.7-16.6); Lymphocytes # 1.5 10^3/uL (0.8-4.8); Lymphocytes % 15.1 %; Mean Corpuscular HGB Conc 26.8 g/dL (30.0-36.0); Mean Corpuscular Hemoglobin 24.5 pg (28.0-34.0); Mean Corpuscular Volume 91.5 fl (80-94); Monocytes % 10.1 %; Neutrophils # 6.94 10^3/uL (1.8-7.7); Neutrophils % 69.6 %; Nucleated Red Blood Cells % 0 %; Platelet Count 256 10^3/cmm (130-400); Red Blood Count 4.85 10^6/uL (4.1-5.3); Red Cell Distribution Width 15.3 % (12.1-15.1)
[2021-11-07 06:38] LABS: Glucose Point of Care 121 mg/dL (70-110)
[2021-11-07 06:53] LABS: Alanine Aminotransferase 17 U/L (0-41); Albumin Level 3.9 g/dL (3.5-5.2); Alkaline Phosphatase 85 IU/L (40-130); Anion Gap 14.2 (5-19); Aspartate Amino Transferase 20 U/L (0-40); Blood Urea Nitrogen 23 mg/dL (8-23); Calcium 10.6 mg/dL (8.5-10.5); Chloride 92 mmol/L (98-107); Globulin 3.3 g/dL (1.3-4.6); Glucose 154 mg/dL (65-115); Magnesium 2.3 mg/dL (1.7-2.3); NT Pro B Type Natriuretic Pept 382 pg/mL (0-450); Osmolality Calculated 307 mOsm/kg (285-295); Potassium 4.2 mmol/L (3.5-5.1); Sodium 145 mmol/L (136-145); Total Bilirubin 0.4 mg/dL (0.15-1.2); Total Protein 7.2 g/dL (6.6-8.7)
[2021-11-07 07:09] LABS: Carbon Dioxide 43 mmol/L (22-29)
--- NOTE | 2021-11-07 08:49 | ECG_ITS ---
[facility] Test Date: 2021-11-07 Pat Name: Clint Quevedo Department: Room: 102 Gender: Male Landing Worker: : 1945 Requested By: Madi Antonio Order Number: [id number] Gino MD: Orion Jennings M.D. Measurements Intervals [place] Rate: 89 P: MA: QRS: -44 QRSD: 162 T: 109 QT: 400 QTc: 489 Interpretive Statements Sinus rhythm with PACs Borderline first-degree AV block LEFT AXIS DEVIATION [QRS AXIS < -30] LEFT BUNDLE BRANCH BLOCK [120+ ms QRS DURATION, 80+ ms Q/S IN V1/V2, 85+ ms R IN I/aVL/V5/V6] Compared to ECG 11/05/2021 22:03:46 No change Electronically Signed On 11-07-2021 11:06:45 CDT by Orion Jennings M.D. [email or web address]. [email or web address].[employer]azaart/store/[id number]
[2021-11-07] MEDS: ferrous sulfate EC 325 mg Tablet PO (09:08)
[2021-11-07] MEDS: finasteride 5 mg Tablet PO (09:08)
[2021-11-07] MEDS: aspirin 81 mg EC Tablet PO (09:08)
[2021-11-07] MEDS: metoprolol tartrate 50 mg Tablet PO ×2 (09:08→17:36)
[2021-11-07] MEDS: hyDRALAzine 10 mg Tablet PO ×3 (09:09→22:50)
[2021-11-07] MEDS: tamsulosin 0.4 mg Capsule 0.8 MG PO (09:09)
[2021-11-07] MEDS: pantoprazole DR 40 mg Tablet PO (09:09)
[2021-11-07] MEDS: docusate sodium 100 mg Capsule PO ×2 (09:09→17:36)
[2021-11-07] MEDS: atorvastatin 40 mg Tablet 20 MG PO (09:09)
[2021-11-07] MEDS: potassium chloride ER 20 mEq Tablet PO ×2 (09:09→22:50)
--- NOTE | 2021-11-07 10:20 | PC.CHAP ---
Pastoral Care Encounter/Spiritual Assessment Type of Contact [] Declined client relationship manager visit [] Patient/Family/Request visit [] Outpatient visit [] Follow-up visit [] Physician referral [] Code/Alert [x] Routine visit [] Staff referral [] Actively dying [] Patient sleeping [] Family support [] [] Out of room [] Palliative care [] [x] Receiving care in room [] Pre-surgical visit [] Trauma [x] Long length of stay [] ICU visit [] Other: Relational/Emotional Strength [x] Patient feels connected with others/family/visitors/staff [] Distress [] Loneliness/isolation [] Abandonment Spirituality of Patient [x] Person of Disha [] Attends Faith of their Disha [x] Believes in Prayer [] Reads Bible or Orthodox materials [] There are Spiritual issues to be addressed Stranding Machine Operator Helper Interventions [x] Prayer [x] Active listening [x] Non-anxious presence [x] Spiritual/emotional support [] Crisis/trauma care [x] Spiritual counseling [] Bereavement support [] Provided bereavement packet [] Provided Bible/devotional materials [] Provided toy/stuffed animal, coloring book to patient or family member [] Provided Communion [] Anointing/[place] [] Salvation [x] Completed spiritual assessment [] Other: Impact on Illness or Injury [] Angry [] Fearful [] Anxious [] Often cries [] Exhaustion [] Unable to work [] Unable to attend sikh [] Unable to walk/stand [] Unable to read [] Unable to drive [] Unable to eat/drink [] Unable to sleep [] Unable to be with family [] Patient intubated [] Other: Summary Heart result sweeling in legs has a good attitude Time spent with patient 1o mins
--- NOTE | 2021-11-07 10:46 | USCV_ITS ---
Clint Quevedo Age: 76 Gender: M : 1945 Exam Date: 11/07/2021 15:34 Ordering Phys: Madi Antonio MD Technologist: Lance Cooper Exam Location: [facility] [place] Indication: dvt PROCEDURES: Venous duplex imaging was performed in bilateral lower extremities. The following venous structures were evaluated: common femoral vein, profunda vein, proximal portion of the greater saphenous vein, superficial femoral vein, and the popliteal vein. Serial compression, augmentation maneuvers, and spectral Doppler flow evaluation were performed. FINDINGS: Difficult and limited view due to patient body habitus. Normal 2-D Doppler and augmentation and compressibility throughout the lower extremity venous structures. Additional imaging through the proximal calf veins also reveals no thrombus. Limited evaluation of the greater saphenous vein is patent with no thrombus.. CONCLUSIONS Technically difficut examination No evidence of right lower extremity DVT. No evidence of left lower extremity DVT. Milton Duong MD (Electronically Signed) Final Date: 08 Nov 2021 16:10 S
--- NOTE | 2021-11-07 10:46 | PM.PN ---
Subjective Medications: Medication Review Details: This morning patient was examined, he tells me he feels a lot better, and is requiring 2.5 L of oxygen, he tells me that he is feeling better, no chest pain overnight, no palpitations, during my examination, however his heart rates do go up into the high 140s, for a few seconds, rhythm looks like atrial fibrillation, he is asymptomatic, Vitals/I&O/Wt Last Vital Signs Temp 98.0 F 11/07/21 07:13 Pulse 87 11/07/21 09:08 Resp 20 H 11/07/21 09:08 BP 170/79 11/07/21 07:13 Pulse Ox 98 11/07/21 09:08 11/06/21 11/07/21 11/07/21 22:59 06:59 14:59 Intake Total 350 / 350 Output Total 825 / 825 1875 / 2700 Balance -825 / -825 -1875 / -2700 350 / 350 Weight last 48 hrs Weight 165.108 kg Physical Exam Const: COMMON NORMALS: no acute distress and patient oriented x3 Resp: COMMON NORMALS: normal respiratory effort, No retractions and No use of accessory muscles AUSCULTATION: crackles Cardio: COMMON NORMALS: regular rate, regular rhythm, S1 normal heart sound present and S2 normal heart sound present RATE: regular rate RHYTHM: regular rhythm HEART SOUNDS: S1 normal heart sound present and S2 normal heart sound present GI: COMMON NORMALS: Normal to inspection, nondistended, normoactive bowel sounds present, Soft to palpation and non-tender PALPATION: Yes Soft to palpation Extremity: NARRATIVE EXTREMITY EXAM: 1+ pitting edema bilateral extremity Neuro: COMMON NORMALS: patient oriented x3 Psych: COMMON NORMALS: mental status grossly normal Data : 11/07/21 04:26 11/07/21 04:26 A&P Assessment and plan (1) Diastolic CHF, acute: Status: Acute (2) Shortness of breath: Status: Acute (3) Leg edema: Status: Acute (4) New onset left bundle branch block (LBBB): Status: Acute (5) New onset a-fib: Status: Acute (6) Acute kidney injury: Status: Acute Plan Bilateral lower extremity edema, with shortness of breath concerning for fluid overload -Highly likely suspicious for diastolic CHF exacerbation -Cardiac echocardiogram 1.? This is a technically difficult study.? Ultrasound enhancing ?agent Optison was used per protocol. ?2.? Normal left ventricular cavity size and systolic function. ?Left ventricular ejection fraction is estimated at 60%. Abnormal ?septal motion consistent with conduction abnormality. ?3. Probably normal right ventricle size and systolic function. ?4. No prior similar studies to compare. -Lasix 40 mg IV twice daily, on hold as creatinine is up to 1.4, CO2 43 -Hold spironolactone -Fluid restrictions at 1000 cc -Maintain potassium greater than 4, magnesium greater than 2 -Encourage ambulation -DNR/DNI, confirmed with patient, family at bedside -Lovenox for DVT prophylaxis New onset left bundle branch block -No complaints of chest pain -EKG shows A. fib, new onset LBBB, 6-hour troponin 20 -Cardiac echo as above -Aspirin, statin, beta-cyn N.p.o. midnight, cardiac stress test tomorrow morning New onset atrial fibrillation -Rate control with metoprolol -Continue to monitor -Add Eliquis 5 mg twice daily -Potassium greater than 4, mag greater than 2 Type 2 diabetes mellitus, low-dose sliding scale COPD not in exacerbation, DuoNeb as needed Attestations Medical Necessity Statement*: Patient requires hospitalization for bilateral lower extremity edema acute kidney injury, diastolic CHF exacerbation, new onset LBBB, no with atrial fibrillation, requiring monitor urine output, stress testing Coding Level of Care Code Acute Line Construction Superintendent for Chg Fwd Diagnoses Diastolic CHF, acute I50.31 Shortness of breath R06.02 Leg edema R60.0 New onset left bundle branch block (LBBB) I44.7 New onset a-fib I48.91 Acute kidney injury N17.9
[2021-11-07 10:59] LABS: Glucose Point of Care 151 mg/dL (70-110)
[2021-11-07] MEDS: insulin lispro 100 unit/1 mL SUBCUT ×2 (11:37→17:36)
[2021-11-07] MEDS: apixaban 5 mg Tablet PO ×2 (11:37→22:49)
[2021-11-07 16:50] LABS: Glucose Point of Care 147 mg/dL (70-110)
[2021-11-07 22:14] LABS: Glucose Point of Care 147 mg/dL (70-110)
[2021-11-08] VITALS (14 sets, daily range): BP systolic 118–161; BP diastolic 57–89; PULSE 67–86; RESP 18–24; TEMP 36.4–36.9; O2SAT 92–97
--- NOTE | 2021-11-08 06:00 | ECG_ITS ---
[facility] Test Date: 2021-11-08 Pat Name: Clint Quevedo Department: Room: 102 Gender: Male Housing Counselor: Jennifer Palencia : 1945 Requested By: Madi Antonio Order Number: [id number] Gino MD: Emmanuel Oshea M.D. Interpretive Statements NAME OF STUDY: LEXISCAN SESTAMIBI STRESS TEST INDICATION: [new onset lbbb, ] Procedure: At the baseline, the blood pressure was 143/71 mmHg with a heart rate of 84 bpm. The electrocardiogram showed normal sinus rhythm, left bundle branch block. The Lexiscan was infused over a period of 20 seconds. A total of 0.4 mg of Lexiscan was infused. The stress phase was continued for a total of 5 minutes. Heart rate was at the end of stress phase was 86 bpm and a blood pressure of 154/78 mmHg. The EKG at the peak infusion revealed normal sinus rhythm with no significant ST-T wave changes. Sestamibi was injected 20 seconds after the Lexiscan infusion. Blood pressure at the end of recovery phase was 140/80 mmHg with a heart rate of 85 bpm. Conclusion: 1. Normal EKG response to Lexiscan infusion 2. No Lexiscan induced chest pain or cardiac arrhythmia. 3. Normal blood pressure and heart rate response. 4. Sestamibi/sestamibi perfusion scan pending; see separate report. Electronically Signed On 12-05-2021 15:14:40 CDT by Emmanuel Oshea M.D. [id number]
[2021-11-08 07:06] LABS: Glucose Point of Care 143 mg/dL (70-110)
[2021-11-08] MEDS: morphine 4 mg/mL SDV 1 mL 2 MG IVP (08:16)
[2021-11-08] MEDS: regadenoson 0.4 Mg/5 ml Syringe IVP (08:16)
--- NOTE | 2021-11-08 09:14 | PM.PN ---
Subjective Subjective: Patient was seen this morning, in the stress lab, he tells me that he is feeling better, still having some wheezing, some shortness of breath, his edema of his legs is improving, no chest pain overnight Vitals/I&O/Wt Last Vital Signs Temp 98.1 F 11/08/21 04:00 Pulse 86 11/08/21 08:41 Resp 22 H 11/08/21 04:00 BP 140/80 11/08/21 08:41 Pulse Ox 94 11/08/21 04:00 11/07/21 11/08/21 11/08/21 22:59 06:59 14:59 Intake Total 250 / 837 Output Total 600 / 1400 150 / 1550 Balance -350 / -563 -150 / -713 Physical Exam Const: COMMON NORMALS: no acute distress and patient oriented x3 Neck/C-Spine: COMMON NORMALS: no JVD Resp: COMMON NORMALS: normal respiratory effort, No retractions and No use of accessory muscles OTHER: Crackles on lower lung verma Cardio: COMMON NORMALS: no JVD, regular rate, regular rhythm, S1 normal heart sound present and S2 normal heart sound present RATE: regular rate RHYTHM: regular rhythm HEART SOUNDS: S1 normal heart sound present and S2 normal heart sound present GI: COMMON NORMALS: Normal to inspection, nondistended, normoactive bowel sounds present, Soft to palpation, non-tender and No hepatosplenomegaly present PALPATION: Yes Soft to palpation and Yes No hepatosplenomegaly present Extremity: NARRATIVE EXTREMITY EXAM: 1+ pitting edema bilateral lower extremity Neuro: COMMON NORMALS: patient oriented x3 Psych: COMMON NORMALS: mental status grossly normal Data : 11/07/21 04:26 11/07/21 04:26 A&P Assessment and plan (1) Diastolic CHF, acute: Status: Acute (2) Shortness of breath: Status: Acute (3) Leg edema: Status: Acute (4) New onset left bundle branch block (LBBB): Status: Acute (5) New onset a-fib: Status: Acute (6) Acute kidney injury: Status: Acute Plan Bilateral lower extremity edema, with shortness of breath concerning for fluid overload -Highly likely suspicious for diastolic CHF exacerbation -Cardiac echocardiogram 1.? This is a technically difficult study.? Ultrasound enhancing ?agent Optison was used per protocol. ?2.? Normal left ventricular cavity size and systolic function. ?Left ventricular ejection fraction is estimated at 60%. Abnormal ?septal motion consistent with conduction abnormality. ?3. Probably normal right ventricle size and systolic function. ?4. No prior similar studies to compare. -Morning blood work pending, Lasix dosing based on creatinine -3 L urine output -Hold spironolactone -Fluid restrictions at 1000 cc -Maintain potassium greater than 4, magnesium greater than 2 -Encourage ambulation -Venous ultrasound for DVT -DNR/DNI, confirmed with patient, family at bedside -Lovenox for DVT prophylaxis New onset left bundle branch block -No complaints of chest pain -EKG shows A. fib, new onset LBBB, 6-hour troponin 20 -Cardiac echo as above -Aspirin, statin, beta-cyn -Cardiac stress test today New onset atrial fibrillation -Rate control with metoprolol -Continue to monitor - Eliquis 5 mg twice daily -Potassium greater than 4, mag greater than 2 Type 2 diabetes mellitus, low-dose sliding scale COPD not in exacerbation, DuoNeb as needed Attestations Medical Necessity Statement*: Patient requires hospitalization for bilateral lower extreme edema, shortness of breath, diastolic CHF exacerbation, new onset A. fib, new onset left bundle branch block Coding Level of Care Code Acute Instrument Maintenance Supervisor for [facility] Fwd Diagnoses Diastolic CHF, acute I50.31 Shortness of breath R06.02 Leg edema R60.0 New onset left bundle branch block (LBBB) I44.7 New onset a-fib I48.91 Acute kidney injury N17.9
[2021-11-08] MEDS: metoprolol tartrate 50 mg Tablet PO ×2 (09:57→17:25)
[2021-11-08] MEDS: pantoprazole DR 40 mg Tablet PO (09:57)
[2021-11-08] MEDS: atorvastatin 40 mg Tablet 20 MG PO (09:57)
[2021-11-08] MEDS: finasteride 5 mg Tablet PO (09:57)
[2021-11-08] MEDS: aspirin 81 mg EC Tablet PO (09:57)
[2021-11-08] MEDS: hyDRALAzine 10 mg Tablet PO ×2 (09:58→14:43)
[2021-11-08] MEDS: tamsulosin 0.4 mg Capsule 0.8 MG PO (09:58)
[2021-11-08] MEDS: ferrous sulfate EC 325 mg Tablet PO (09:58)
[2021-11-08] MEDS: potassium chloride ER 20 mEq Tablet PO ×3 (09:58→23:36)
--- NOTE | 2021-11-08 10:00 | NMCV_ITS ---
NM tyler perf SPECT r/s* [id number] Clint Quevedo Age: 76 Gender: M : 1945 Exam Date: 11/08/2021 10:00 Ordering Phys: Madi Antonio MD Technologist: ANUPAM Avery Exam Location: [facility] Indications: CHEST PAIN STRESS TEST [facility] IMAGE PROTOCOL Rest/Stress 1 Lexiscan Day Radiopharmaceutical Dose (mCi) Administration Site Administered by Rest: Tc-99m 11.0 IV ANUPAM Ferrari Sestamialan Stress:Tc-99m 33.0 IV ANUPAM Avery Sestamialan Rest: 08-Nov-2021 60 Discovery 630 Stress: 08-Nov-2021 30 Discovery 630 0.4mg Lexiscan. Supine position only as patient was unable to lay prone. SPECT RESULTS Technical Quality: Excellent Raw Data Analysis: Normal Image Corrections: No attenuation or motion correction applied Summed Stress Score: 9 Summed Rest Score: 6 Summed Difference Score: 6 PERFUSION FINDINGS There is a moderate sized, mostly reversible perfusion defect in the apical lateral and lateral wall. This is consistent with moderate sized area of ischemia in the left circumflex artery territory FUNCTIONAL RESULTS (calculated via Gated SPECT) Stress Image LV EF (%): 60 Stress EDV (mL):134 TID: 0.91 Stress ESV (mL):54 FUNCTIONAL FINDINGS: There is normal left ventricular systolic function. IMPRESSIONS 1. Abnormal myocardial perfusion imaging with moderate sized area of ischemia in the left circumflex artery territory 2. LV systolic function is normal Emmanuel Oshea MD (Electronically Signed) Final Date: 08 Nov 2021 12:52 S
[2021-11-08] MEDS: apixaban 5 mg Tablet PO ×2 (10:01→23:36)
[2021-11-08 10:13] LABS: Basophils # 0.1 10^3/uL (0.0-0.1); Basophils % 0.8 %; Eosinophils # 0.3 10^3/uL (0.0-0.8); Eosinophils % 3.1 %; Hematocrit 44.4 % (42.0-52.0); Hemoglobin 12.3 g/dL (11.7-16.6); Lymphocytes # 1.3 10^3/uL (0.8-4.8); Lymphocytes % 14.1 %; Mean Corpuscular HGB Conc 27.7 g/dL (30.0-36.0); Mean Corpuscular Hemoglobin 24.7 pg (28.0-34.0); Mean Corpuscular Volume 89.3 fl (80-94); Mean Platelet Volume 10.1 fL (7.4-10.4); Monocytes # 0.8 10^3/uL (0.2-0.9); Monocytes % 8.3 %; Neutrophils # 6.69 10^3/uL (1.8-7.7); Neutrophils % 73.2 %; Nucleated Red Blood Cells % 0 %; Platelet Count 280 10^3/cmm (130-400); Red Blood Count 4.97 10^6/uL (4.1-5.3); Red Cell Distribution Width 15.2 % (12.1-15.1); White Blood Count 9.1 10^3/uL (4.0-10.0)
[2021-11-08 10:41] LABS: Alanine Aminotransferase 13 U/L (0-41); Albumin Level 3.8 g/dL (3.5-5.2); Alkaline Phosphatase 78 IU/L (40-130); Anion Gap 12.3 (5-19); Aspartate Amino Transferase 24 U/L (0-40); Blood Urea Nitrogen 25 mg/dL (8-23); Calcium 10.2 mg/dL (8.5-10.5); Chloride 90 mmol/L (98-107); Globulin 4.1 g/dL (1.3-4.6); Glucose 169 mg/dL (65-115); Magnesium 2.1 mg/dL (1.7-2.3); Osmolality Calculated 296 mOsm/kg (285-295); Phosphorus 2.7 mg/dL (2.5-4.5); Potassium 4.3 mmol/L (3.5-5.1); Sodium 139 mmol/L (136-145); Total Bilirubin 0.6 mg/dL (0.15-1.2); Total Protein 7.9 g/dL (6.6-8.7)
[2021-11-08 10:48] LABS: Carbon Dioxide 41 mmol/L (22-29)
[2021-11-08 10:49] LABS: NT Pro B Type Natriuretic Pept 266 pg/mL (0-450)
[2021-11-08] MEDS: acetaZOLAMIDE 250 mg Tablet PO (11:47)
[2021-11-08] MEDS: spironolactone 25 mg Tablet PO (11:47)
[2021-11-08] MEDS: FUROsemide 10 mg/mL SDV 4mL 40 MG IVP (11:47)
[2021-11-08 11:51] LABS: Glucose Point of Care 141 mg/dL (70-110)
[2021-11-08] MEDS: insulin lispro 100 unit/1 mL SUBCUT (13:13)
--- NOTE | 2021-11-08 16:06 | P.CONIM_ITS ---
Providers/Reason For Consult Consulting Physician/Specialty*: GIA Hernandez MD/cardiology Reason for Consult*: Patient with abnormal EKG/myocardial perfusion imaging Requesting Physician: Dr. Antonio Attending Physician: Madi Antonio MD Primary Care Provider: Shukri Corral DO History of Present Illness History of Present Illness Clint Quevedo is a 76 year old male with a history of hypertension, type 2 diabetes, dyslipidemia and COPD he is present with complaints of acute worsening of shortness of breath. He has a history of peripheral edema which also has been gradually getting worse. He was found to have a left bundle branch block in the EKG. He had a myocardial perfusion imaging today which revealed a modera te area of reversible defect in the distribution of the left circumflex artery. Cardiology consult is requested for further cardiac evaluation recommendations. This patient has no previous history for coronary artery disease, myocardial infarction or congestive heart failure. He has a history of high blood pressure, type 2 diabetes and dyslipidemia for the last many years. He has been compliant with medications. He been noticing swelling of the lower extremities for the last more than a year. The swelling has been gradually getting worse. He also has significant weight gain in the last couple of years. He used to be around 160 to 180 pounds while he was working. He quit working in 2007. He uses oxygen on a as needed basis. He also is on bronchodilators. Denies any fever or chills. No cough. The other day he came to the [facility] for a [facility] test. While being there, he was becoming acutely short of breath. For that reason, he is advised to come to our emergency room. He was found to have some features of diastolic heart failure. His LV ejection fraction was normal by echocardiogram. The BNP was in the 500 range. The blood pressure is in the 1 40-1 50 range at this time. He never had any chest pain. Denies any palpitation, unusual dizziness or syncopal episodes. No significant family history for any premature atherosclerotic heart disease. His father had coronary disease in his late age. One of his paternal aunts had a peripheral edema. He quit smoking many years ago Review of Systems Narrative: CONSTITUTIONAL: No fever or chills. EYES: No blurring of vision or other visual disturbances lately. ENT: No hoarseness of voice, auditory disturbances or sore throat. CARDIOVASCULAR: As mentioned above. RESPIRATORY: Shortness of breath as mentioned above. History of COPD. GASTROINTESTINAL: No hematemesis or melena. GENITOURINARY: History of BPH. INTEGUMENTARY: No skin rashes or history of skin cancer. NEURO: No transient ischemic attacks or amaurosis. PSYCHIATRIC: No history of psychosis or major depression. HEMATOLOGIC: No bleeding disorders or significant anemia. ENDOCRINE: Type 2 diabetes as mentioned above. MUSCULOSKELETAL: No recent joint pain or swelling. ALLERGY/IMMUNOLOGY: As mentioned above. Medications/Allergies Home Medications Medication Instructions Recorded Confirmed Last Taken Type furosemide 20 mg tablet 20 mg PO QAM PRN #5 tab 09/10/21 11/05/21 Unknown Rx albuterol sulfate 90 mcg/actuation 2 puff INHALATION QID PRN 11/05/21 11/05/21 Unknown History aerosol inhaler ferrous sulfate 325 mg (65 mg 325 mg PO DAILY 11/05/21 11/05/21 11/05/21 History iron) tablet finasteride 5 mg tablet 5 mg PO DAILY 11/05/21 11/05/21 11/04/21 History fluticasone 250 mcg-salmeterol 50 1 inh INHALATION BID 11/05/21 11/05/21 Unknown History mcg/dose blistr powdr for inhalation (Advair Diskus) metformin 1,000 mg tablet 500 mg PO DAILY 11/05/21 11/05/21 11/05/21 History metoprolol tartrate 100 mg tablet 50 mg PO BID 11/05/21 11/05/21 11/05/21 History nystatin 100,000 unit/gram topical 1 applic TOPICAL TID PRN 11/05/21 11/05/21 Unknown History cream pantoprazole 40 mg tablet,delayed 40 mg PO DAILY 11/05/21 11/05/21 11/05/21 History release rosuvastatin 10 mg tablet 5 mg PO DAILY 11/05/21 11/05/21 11/04/21 History tamsulosin 0.4 mg capsule 0.8 mg PO DAILY 11/05/21 11/05/21 11/05/21 History zinc oxide 20 % topical ointment 1 applic TOPICAL TID PRN 11/05/21 11/05/21 Unknown History Allergies Allergy/AdvReac Type Severity Reaction Status Date / Time No Known Allergies Allergy Verified 11/08/21 11:46 Current Medications Generic Name Dose Route Start Last Admin Trade Name Nav PRN Reason Stop Dose Admin Apixaban 5 mg 11/07/21 11:00 11/08/21 10:01 Apixaban 5 Mg Tablet PO 5 mg Q12H AVEL Administration Aspirin 81 mg 11/06/21 09:00 11/08/21 09:57 Aspirin 81 Mg Ec Tablet PO 81 mg DAILY AVEL Administration Atorvastatin Calcium 20 mg 11/06/21 09:00 11/08/21 09:57 Atorvastatin 40 Mg Tablet PO 20 mg DAILY AVEL Administration Docusate Sodium 100 mg 11/05/21 18:00 11/08/21 10:02 Docusate Sodium 100 Mg Capsule PO Not Given BID [facility] Ferrous Sulfate 325 mg 11/06/21 09:00 11/08/21 09:58 Ferrous Sulfate Ec 325 Mg Tablet PO 325 mg DAILY AVEL Administration Finasteride 5 mg 11/06/21 09:00 11/08/21 09:57 Finasteride 5 Mg Tablet PO 5 mg DAILY AVEL Administration Hydralazine HCl 10 mg 11/07/21 09:00 11/08/21 14:43 Hydralazine 10 Mg Tablet PO 10 mg TID AVEL Administration Insulin Human Lispro 0 unit 11/05/21 18:00 11/08/21 13:13 Insulin Lispro 100 Unit/1 Ml SUBCUT 2 unit TIDWM AVEL Administration Protocol Metoprolol Tartrate 50 mg 11/05/21 18:00 11/08/21 09:57 Metoprolol Tartrate 50 Mg Tablet PO 50 mg BID AVEL Administration Pantoprazole Sodium 40 mg 11/06/21 09:00 11/08/21 09:[address] 40 Mg Tablet PO 40 mg DAILY AVEL Administration Potassium Chloride 20 meq 11/06/21 08:00 11/08/21 09:58 Potassium Chloride Er 20 Meq Tablet PO 20 meq Q12H AVEL Administration Spironolactone 25 mg 11/08/21 10:50 11/08/21 11:47 Spironolactone 25 Mg Tablet PO 25 mg DAILY AVEL Administration Tamsulosin HCl 0.8 mg 11/06/21 09:00 11/08/21 09:58 Tamsulosin 0.4 Mg Capsule PO 0.8 mg DAILY AVEL Administration PFSH Acute PFSH: Medical History Avascular necrosis of femoral head BPH (benign prostatic hyperplasia) COPD (chronic obstructive pulmonary disease) Diabetes Hypertension Obesity Surgical History History of cholecystectomy Family History Father CAD (coronary artery disease) Mother Perforated viscus Social History Smoking and tobacco status: former smoker Vitals/I&O/Wt Last Vital Signs Temp 98.4 F 11/08/21 15:36 Pulse 74 11/08/21 15:36 Resp 23 H 11/08/21 15:36 BP 140/77 11/08/21 15:36 Pulse Ox 92 11/08/21 15:36 11/08/21 11/08/21 11/08/21 06:59 14:59 22:59 Intake Total 592 / 592 Output Total 150 / 1550 1100 / 1100 400 / 1500 Balance -150 / -713 -508 / -508 -400 / -908 Physical Exam Narrative: GENERAL: The patient is alert and oriented times three. Not in any acute distress. Morbidly obese HEENT: No significant pallor, icterus or lymphadenopathy. The pupils are reactant to light. Oral cavity: There are no mucous membrane lesions. Funduscopic examination: The fundus is not visualized NECK: Trachea appears to be central. No masses noted. No JVD or thyromegaly appreciated. No carotid bruit. RESPIRATORY: Chest is symmetrical. No intercostals muscle retraction or any accessory muscle activation. There is no chest wall tenderness. Breath sounds are heard bilaterally. No rales or rhonchi heard. No evidence of any consolidation. BREASTS: Deferred. HEART: The PMI is in the 5th left intercostals space just inside the midclavicular line. No palpable precordial events. S1 and S2 are normal. No S3 or S4 heard. No pericardial rub or any click heard. ABDOMEN: No vessel pulsations or distention. No tenderness. No organomegaly appreciated. No abdominal bruit. Bowel sounds are normally heard. : Deferred. RECTAL: Deferred. LYMPHATIC: No lymphadenopathy noted in the neck or groin. EXTREMITIES: 2-3+ edema both lower extremities. No cyanosis. Has some diffuse erythema in the lower extremity MUSCULOSKELETAL: No acute joint deformities or swelling SKIN: There are no significant scars or skin rash noted. NEUROPSYCHIATRIC: The patient is alert and oriented x3. Appears to be in a good mood. The higher functions are grossly within normal limits. No tremors or rigidity noted. Data : 11/08/21 09:48 11/08/21 09:48 Other Labs: Laboratory Last Values WBC 9.1 10^3/uL (4.0-10.0) 11/08/21 09:48 RBC 4.97 10^6/uL (4.1-5.3) 11/08/21 09:48 Hgb 12.3 g/dL (11.7-16.6) 11/08/21 09:48 Hct 44.4 % (42.0-52.0) 11/08/21 09:48 MCV 89.3 fl (80-94) 11/08/21 09:48 MCH 24.7 pg (28.0-34.0) L 11/08/21 09:48 MCHC 27.7 g/dL (30.0-36.0) L 11/08/21 09:48 RDW 15.2 % (12.1-15.1) H 11/08/21 09:48 Plt Count 280 10^3/cmm (130-400) 11/08/21 09:48 MPV 10.1 fL (7.4-10.4) 11/08/21 09:48 Neut % (Auto) 73.2 % 11/08/21 09:48 Lymph % (Auto) 14.1 % 11/08/21 09:48 [place] % (Auto) 8.3 % 11/08/21 09:48 Eos % (Auto) 3.1 % 11/08/21 09:48 Baso % (Auto) 0.8 % 11/08/21 09:48 Neut # (Auto) 6.69 10^3/uL (1.8-7.7) 11/08/21 09:48 Lymph # (Auto) 1.3 10^3/uL (0.8-4.8) 11/08/21 09:48 [place] # (Auto) 0.8 10^3/uL (0.2-0.9) 11/08/21 09:48 Eos # (Auto) 0.3 10^3/uL (0.0-0.8) 11/08/21 09:48 Baso # (Auto) 0.1 10^3/uL (0.0-0.1) 11/08/21 09:48 Nucleated RBC % (auto) 0 % 11/08/21 09:48 Nucleated RBCs # 0.0 /100WBC 11/08/21 09:48 Sodium 139 mmol/L (136-145) 11/08/21 09:48 Potassium 4.3 mmol/L (3.5-5.1) 11/08/21 09:48 Chloride 90 mmol/L (98-107) L 11/08/21 09:48 Carbon Dioxide 41 mmol/L (22-29) H 11/08/21 09:48 Anion Gap 12.3 (5-19) 11/08/21 09:48 BUN 25 mg/dL (8-23) H 11/08/21 09:48 Creatinine 1.1 mg/dL (0.7-1.2) 11/08/21 09:48 GFR Calculation Not Reportable 11/08/21 09:48 Glucose 169 mg/dL (65-115) H 11/08/21 09:48 POC Glucose 141 mg/dL (70-110) H 11/08/21 11:20 Estimat Average Glucose 146 11/06/21 04:20 Hemoglobin A1c 6.7 % (4.0-6.0) H 11/06/21 04:20 Calculated Osmolality 296 mOsm/kg (285-295) H 11/08/21 09:48 Lactate 1.0 mmol/L (0.5-2.2) 11/05/21 13:30 Calcium 10.2 mg/dL (8.5-10.5) 11/08/21 09:48 Phosphorus 2.7 mg/dL (2.5-4.5) 11/08/21 09:48 Magnesium 2.1 mg/dL (1.7-2.3) 11/08/21 09:48 Total Bilirubin 0.6 mg/dL (0.15-1.2) 11/08/21 09:48 AST 24 U/L (0-40) 11/08/21 09:48 ALT 13 U/L (0-41) 11/08/21 09:48 Alkaline Phosphatase 78 IU/L (40-130) 11/08/21 09:48 Troponin T Gen 5 ng/L 20 ng/L (0-15) H 11/06/21 04:20 Troponin T Baseline 17 ng/L (0-15) H 11/05/21 13:30 Troponin T 120 Minute 18.24 ng/L (0-15) H 11/05/21 16:15 Delta Troponin T 1.24 ABS# (0-10) 11/05/21 16:15 NT-Pro-B Natriuret Pep 266 pg/mL (0-450) 11/08/21 09:48 Total Protein 7.9 g/dL (6.6-8.7) 11/08/21 09:48 Albumin 3.8 g/dL (3.5-5.2) 11/08/21 09:48 Globulin 4.1 g/dL (1.3-4.6) 11/08/21 09:48 Triglycerides 165 mg/dL (0-150) H 11/06/21 04:20 Triglycerides Cancelled 11/06/21 04:20 Cholesterol 142 mg/dL (0-200) 11/06/21 04:20 Cholesterol Cancelled 11/06/21 04:20 LDL Cholesterol, Calc 72 mg/dL (50-129) 11/06/21 04:20 LDL Cholesterol, Calc Cancelled 11/06/21 04:20 HDL Cholesterol 37 mg/dL (60-100) L 11/06/21 04:20 HDL Cholesterol Cancelled 11/06/21 04:20 LDL/HDL Ratio 1.95 RATIO (0.00-3.22) 11/06/21 04:20 LDL/HDL Ratio Cancelled 11/06/21 04:20 Cholesterol/HDL Ratio 3.84 mg/dL (1.0-5.00) 11/06/21 04:20 Cholesterol/HDL Ratio Cancelled 11/06/21 04:20 TSH 1.84 uIU/mL (0.27-4.20) 11/05/21 16:15 Other Imaging: My impression: ECHO ?CONCLUSIONS ?1.? This is a technically difficult study.? Ultrasound enhancing ?agent Optison was used per protocol. ?2.? Normal left ventricular cavity size and systolic function. ?Left ventricular ejection fraction is estimated at 60%. Abnormal ?septal motion consistent with conduction abnormality. ?3. Probably normal right ventricle size and systolic function. ?4. No prior similar studies to compare. MPI ?1. Abnormal myocardial perfusion imaging with moderate sized area of ischemia ?in the left circumflex artery territory ?2. LV systolic function is normal EKG 1: My Interpretation: Normal sinus rhythm with a left bundle branch block. Frequent supraventricular ectopics EKG computer-generated impression: Chest X-Ray 11/05/21 11:23 IMPRESSION: No acute findings. A&P Assessment and plan (1) Diastolic CHF, acute: The etiology of the acute diastolic heart failure is not clear. Possibility of coronary ischemia causing this is a consideration. The abnormal MPI is suggestive of ischemia in the distribution of the left circumflex artery. This needs to be further evaluated. Patient may be carefully treated with IV diuretics. Status: Acute (2) Abnormal myocardial perfusion study: This is suggestive of ischemia in the distribution of the left circumflex artery. His EKG is uninterpretable due to baseline left bundle branch block. For further evaluation of his coronary status, he requires a cardiac catheterization. This was discussed with the patient. He wants me to discuss with his and rest of the family. His is not available at this time. I will be discussing with her possibly tomorrow. Status: Acute (3) Benign essential hypertension with target blood pressure below 140/90: The antihypertensive medication may be optimized Status: Acute (4) Leg edema: I may go ahead and give him 3 doses of IV Lasix 60 mg every 8 hours. Along with potassium 20 mEq every 6 hours x4. We will repeat the BMP and BNP tomorrow. Status: Acute (5) Type 2 diabetes mellitus: Aggressive management of the diabetes as per the primary care Status: Acute (6) Dyslipidemia: May continue on the current medications. Status: Acute Plan After reviewing the above and also based on the patient's clinical progress, further recommendations will be made. I may increase the dose of the hydralazine to 25 mg p.o. every 8 hours. Lasix 60 mg IV every 8 hours x 3 Potassium 20 mg p.o. every 6 hours x4 Repeat BMP in the morning Thank you for the opportunity to evaluate this patient make these recommendation. Discussed the recommendations with the Dr. Antonio Consult Attestations Medical Necessity Statement: Patient requires continued hospital stay for close monitoring and further management Coding Level of Care Code Acute Lease Attendant for Chg Fwd History Detailed Exam Detailed Medical Decision Making High Complexity Diagnoses Diastolic CHF, acute I50.31 Abnormal myocardial perfusion study R94.39 Benign essential hypertension with target blood pressure below 140/90 I10 Leg edema R60.0 Type 2 diabetes mellitus E11.9 Dyslipidemia E78.5
[2021-11-08 16:43] LABS: Glucose Point of Care 126 mg/dL (70-110)
[2021-11-08] MEDS: FUROsemide 10 mg/mL SDV 10mL 60 MG IVP (17:24)
--- NOTE | 2021-11-08 20:02 | PC.NURSE ---
Shift Note Frequent safety and comfort rounds continue. Orders and/or nursing care completed as indicated. Patient monitored for response to intervention and treatment(s). Education provided includes cardiology consult r/t cardiac stress test result, IV Lasix diuresis. Patient and/or bank representative verbalizes understanding. Will continue to monitor.
[2021-11-08] MEDS: hyDRALAzine 25 mg Tablet PO (21:12)
[2021-11-08 21:56] LABS: Glucose Point of Care 164 mg/dL (70-110)
[2021-11-09] VITALS (11 sets, daily range): BP systolic 118–154; BP diastolic 66–79; PULSE 69–88; RESP 16–26; TEMP 36.6–37.2; O2SAT 93–96
[2021-11-09] MEDS: FUROsemide 10 mg/mL SDV 10mL 60 MG IVP ×2 (01:20→08:20)
--- NOTE | 2021-11-09 03:57 | PC.NURSE ---
Pt sitting in chair with eyes closed. Resp even and non-labored no distress or sob noted. Pt had no c/o pain or discomfort at the present time. No needs voiced. Call light in reach.
[2021-11-09] MEDS: potassium chloride ER 20 mEq Tablet PO ×2 (04:39→17:01)
[2021-11-09 06:27] LABS: Glucose Point of Care 145 mg/dL (70-110)
[2021-11-09] MEDS: insulin lispro 100 unit/1 mL SUBCUT ×3 (07:46→17:03)
--- NOTE | 2021-11-09 08:16 | PC.SOCIAL ---
IMM Update pg 2 of IMM updated and reviewed w/ patient. Copy provided and copy placed in chart.
[2021-11-09 08:17] LABS: Basophils # 0.1 10^3/uL (0.0-0.1); Basophils % 1.1 %; Eosinophils # 0.3 10^3/uL (0.0-0.8); Eosinophils % 3.5 %; Hematocrit 45.8 % (42.0-52.0); Hemoglobin 12.7 g/dL (11.7-16.6); Lymphocytes # 1.3 10^3/uL (0.8-4.8); Lymphocytes % 14.2 %; Mean Corpuscular HGB Conc 27.7 g/dL (30.0-36.0); Mean Corpuscular Hemoglobin 24.5 pg (28.0-34.0); Mean Corpuscular Volume 88.4 fl (80-94); Monocytes % 10.3 %; Neutrophils # 6.66 10^3/uL (1.8-7.7); Neutrophils % 70.6 %; Nucleated Red Blood Cells % 0 %; Platelet Count 267 10^3/cmm (130-400); Red Blood Count 5.18 10^6/uL (4.1-5.3); Red Cell Distribution Width 15.1 % (12.1-15.1); White Blood Count 9.4 10^3/uL (4.0-10.0)
[2021-11-09] MEDS: tamsulosin 0.4 mg Capsule 0.8 MG PO (08:19)
[2021-11-09] MEDS: pantoprazole DR 40 mg Tablet PO (08:19)
[2021-11-09] MEDS: docusate sodium 100 mg Capsule PO ×2 (08:19→17:01)
[2021-11-09] MEDS: finasteride 5 mg Tablet PO (08:19)
[2021-11-09] MEDS: atorvastatin 40 mg Tablet 20 MG PO (08:19)
[2021-11-09] MEDS: aspirin 81 mg EC Tablet PO (08:19)
[2021-11-09] MEDS: hyDRALAzine 25 mg Tablet PO ×3 (08:19→20:20)
[2021-11-09] MEDS: acetaZOLAMIDE 250 mg Tablet PO ×2 (08:19→20:20)
[2021-11-09] MEDS: metoprolol tartrate 50 mg Tablet PO ×2 (08:19→17:01)
[2021-11-09] MEDS: ferrous sulfate EC 325 mg Tablet PO (08:20)
[2021-11-09 08:38] LABS: Alanine Aminotransferase 16 U/L (0-41); Alkaline Phosphatase 73 IU/L (40-130); Anion Gap 13.2 (5-19); Aspartate Amino Transferase 23 U/L (0-40); Blood Urea Nitrogen 31 mg/dL (8-23); Calcium 10.7 mg/dL (8.5-10.5); Chloride 86 mmol/L (98-107); Globulin 3.6 g/dL (1.3-4.6); Glucose 155 mg/dL (65-115); Magnesium 2.2 mg/dL (1.7-2.3); Osmolality Calculated 292 mOsm/kg (285-295); Phosphorus 3.7 mg/dL (2.5-4.5); Potassium 4.2 mmol/L (3.5-5.1); Sodium 136 mmol/L (136-145); Total Bilirubin 0.7 mg/dL (0.15-1.2); Total Protein 7.6 g/dL (6.6-8.7)
--- NOTE | 2021-11-09 09:08 | PM.PN ---
Subjective Subjective: Patient is feeling better. He still has shortness of breath with exertion. Mostly spent time on the recliner. He has some difficulty lying flat in the bed. Denies any chest pain. No significant arrhythmias on the monitor. Medications: Medication Review Details: Current Medications Acetaminophen (Acetaminophen 325 Mg Tablet) 650 mg PO Q6H PRN PRN Reason: Mild/Mod Pain Or Temp >/= 101 Acetazolamide (Acetazolamide 250 Mg Tablet) 250 mg PO Q12H [facility] Stop: 11/10/21 07:44 Last Admin: 11/09/21 08:19 Dose: 250 mg Documented by: Albuterol/Ipratropium (Ipratropium-Albuterol 3 Ml Neb) 3 ml INHALATION Q6H PRN PRN Reason: SHORTNESS OF BREATH Aspirin (Aspirin 81 Mg Ec Tablet) 81 mg PO DAILY [facility] Last Admin: 11/09/21 08:19 Dose: 81 mg Documented by: Atorvastatin Calcium (Atorvastatin 40 Mg Tablet) 20 mg PO DAILY [facility] Last Admin: 11/09/21 08:19 Dose: 20 mg Documented by: Dextrose (Dextrose 50% Syringe 50 Ml) 25 ml IVP ONCE PRN; Protocol PRN Reason: hypoglycemia protocol Dextrose (Dextrose 50% Syringe 50 Ml) 50 ml IVP PRN PRN; Protocol PRN Reason: hypoglycemia protocol Docusate Sodium (Docusate Sodium 100 Mg Capsule) 100 mg PO BID [facility] Last Admin: 11/09/21 08:19 Dose: 100 mg Documented by: Ferrous Sulfate (Ferrous Sulfate Ec 325 Mg Tablet) 325 mg PO DAILY [facility] Last Admin: 11/09/21 08:20 Dose: 325 mg Documented by: Finasteride (Finasteride 5 Mg Tablet) 5 mg PO DAILY [facility] Last Admin: 11/09/21 08:19 Dose: 5 mg Documented by: Furosemide (Furosemide 10 Mg/Ml Sdv 10ml) 60 mg IVP Q12H [facility] Last Admin: 11/09/21 08:20 Dose: 60 mg Documented by: Glucagon (Glucagon 1 Mg/Ml Inj 1 Ml) 1 mg IM ONCE PRN; Protocol PRN Reason: Adult Acute Hypoglycemia Prot. Hydralazine HCl (Hydralazine 25 Mg Tablet) 25 mg PO TID [facility] Last Admin: 11/09/21 08:19 Dose: 25 mg Documented by: Dextrose (D5w) 500 mls @ 100 mls/hr IV ONCE PRN; Protocol PRN Reason: Adult Acute Hypoglycemia Prot Insulin Human Lispro (Insulin Lispro 100 Unit/1 Ml) 0 unit SUBCUT TIDWM [facility]; Protocol Last Admin: 11/09/21 07:46 Dose: 2 unit Documented by: Lactulose (Lactulose Oral Liq 20 Gm/30 Ml Udc) 10 gm PO DAILY PRN; Protocol PRN Reason: Constipation (see protocol) Metoprolol Tartrate (Metoprolol Tartrate 50 Mg Tablet) 50 mg PO BID [facility] Last Admin: 11/09/21 08:19 Dose: 50 mg Documented by: Nystatin (Nystatin Cream 30 Gm) 1 applic TOPICAL TID PRN PRN Reason: Rash Ondansetron HCl (Ondansetron 2 Mg/Ml Sdv 2 Ml) 4 mg IVP Q8H PRN PRN Reason: vomiting, or N/V if npo Ondansetron HCl (Ondansetron 2 Mg/Ml Sdv 2 Ml) 4 mg IVP Q2M PRN PRN Reason: NAUSEA Pantoprazole Sodium (Pantoprazole Dr 40 Mg Tablet) 40 mg PO DAILY [facility] Last Admin: 11/09/21 08:19 Dose: 40 mg Documented by: Potassium Chloride (Potassium Chloride Er 20 Meq Tablet) 20 meq PO Q6H [facility] Last Admin: 11/09/21 04:39 Dose: 20 meq Documented by: Spironolactone (Spironolactone 25 Mg Tablet) 25 mg PO DAILY [facility] Last Admin: 11/09/21 08:20 Dose: Not Given Documented by: Tamsulosin HCl (Tamsulosin 0.4 Mg Capsule) 0.8 mg PO DAILY [facility] Last Admin: 11/09/21 08:19 Dose: 0.8 mg Documented by: Zinc Oxide (Zinc Oxide Oint 30 Gm) 1 applic TOPICAL TID PRN PRN Reason: Rash Vitals/I&O/Wt Last Vital Signs Temp 98.9 F 11/09/21 07:00 Pulse 78 11/09/21 07:00 Resp 20 H 11/09/21 07:00 BP 154/71 11/09/21 07:00 Pulse Ox 95 11/09/21 07:00 11/08/21 11/09/21 11/09/21 22:59 06:59 14:59 Intake Total 240 / 832 180 / 180 Output Total 2825 / 3925 1400 / 5325 300 / 300 Balance -2585 / -3093 -1400 / -4493 -120 / -120 Physical Exam Narrative: GENERAL: The patient is alert and oriented times three. Not in any acute distress. Morbidly obese HEENT: No significant pallor, icterus or lymphadenopathy. NECK: Trachea appears to be central. No masses noted. No JVD or thyromegaly appreciated. No carotid bruit. RESPIRATORY: Chest is symmetrical. No intercostals muscle retraction or any accessory muscle activation. There is no chest wall tenderness. Breath sounds are heard bilaterally. No rales or rhonchi heard. No evidence of any consolidation. BREASTS: Deferred. HEART: The PMI could not be palpated. No palpable precordial events. S1 and S2 are normal. No S3 or S4 heard. No pericardial rub or any click heard. ABDOMEN: No vessel pulsations or distention. No tenderness. No organomegaly appreciated. No abdominal bruit. Bowel sounds are normally heard. : Deferred. RECTAL: Deferred. LYMPHATIC: No lymphadenopathy noted in the neck or groin. EXTREMITIES:1- 2+ edema both lower extremities. No cyanosis. Has some diffuse erythema in the lower extremity MUSCULOSKELETAL: No acute joint deformities or swelling SKIN: There are no significant scars or skin rash noted. NEUROPSYCHIATRIC: The patient is alert and oriented x3. Appears to be in a good mood. The higher functions are grossly within normal limits. No tremors or rigidity noted. Data : 11/09/21 07:50 11/09/21 07:50 Other Labs: Laboratory Last Values WBC 9.4 10^3/uL (4.0-10.0) 11/09/21 07:50 RBC 5.18 10^6/uL (4.1-5.3) 11/09/21 07:50 Hgb 12.7 g/dL (11.7-16.6) 11/09/21 07:50 Hct 45.8 % (42.0-52.0) 11/09/21 07:50 MCV 88.4 fl (80-94) 11/09/21 07:50 MCH 24.5 pg (28.0-34.0) L 11/09/21 07:50 MCHC 27.7 g/dL (30.0-36.0) L 11/09/21 07:50 RDW 15.1 % (12.1-15.1) 11/09/21 07:50 Plt Count 267 10^3/cmm (130-400) 11/09/21 07:50 MPV 10.0 fL (7.4-10.4) 11/09/21 07:50 Neut % (Auto) 70.6 % 11/09/21 07:50 Lymph % (Auto) 14.2 % 11/09/21 07:50 Whiteside % (Auto) 10.3 % 11/09/21 07:50 Eos % (Auto) 3.5 % 11/09/21 07:50 Baso % (Auto) 1.1 % 11/09/21 07:50 Neut # (Auto) 6.66 10^3/uL (1.8-7.7) 11/09/21 07:50 Lymph # (Auto) 1.3 10^3/uL (0.8-4.8) 11/09/21 07:50 Whiteside # (Auto) 1.0 10^3/uL (0.2-0.9) H 11/09/21 07:50 Eos # (Auto) 0.3 10^3/uL (0.0-0.8) 11/09/21 07:50 Baso # (Auto) 0.1 10^3/uL (0.0-0.1) 11/09/21 07:50 Nucleated RBC % (auto) 0 % 11/09/21 07:50 Nucleated RBCs # 0.0 /100WBC 11/09/21 07:50 Sodium 136 mmol/L (136-145) 11/09/21 07:50 Potassium 4.2 mmol/L (3.5-5.1) 11/09/21 07:50 Chloride 90 mmol/L (98-107) L 11/08/21 09:48 Carbon Dioxide 41 mmol/L (22-29) H 11/08/21 09:48 Anion Gap 13.2 (5-19) 11/09/21 07:50 BUN 25 mg/dL (8-23) H 11/08/21 09:48 Creatinine 1.1 mg/dL (0.7-1.2) 11/08/21 09:48 GFR Calculation Not Reportable 11/09/21 07:50 Glucose 169 mg/dL (65-115) H 11/08/21 09:48 POC Glucose 145 mg/dL (70-110) H 11/09/21 06:19 Estimat Average Glucose 146 11/06/21 04:20 Hemoglobin A1c 6.7 % (4.0-6.0) H 11/06/21 04:20 Calculated Osmolality 292 mOsm/kg (285-295) 11/09/21 07:50 Lactate 1.0 mmol/L (0.5-2.2) 11/05/21 13:30 Calcium 10.2 mg/dL (8.5-10.5) 11/08/21 09:48 Phosphorus 3.7 mg/dL (2.5-4.5) 11/09/21 07:50 Magnesium 2.2 mg/dL (1.7-2.3) 11/09/21 07:50 Total Bilirubin 0.7 mg/dL (0.15-1.2) 11/09/21 07:50 AST 23 U/L (0-40) 11/09/21 07:50 ALT 16 U/L (0-41) 11/09/21 07:50 Alkaline Phosphatase 73 IU/L (40-130) 11/09/21 07:50 Troponin T Gen 5 ng/L 20 ng/L (0-15) H 11/06/21 04:20 Troponin T Baseline 17 ng/L (0-15) H 11/05/21 13:30 Troponin T 120 Minute 18.24 ng/L (0-15) H 11/05/21 16:15 Delta Troponin T 1.24 ABS# (0-10) 11/05/21 16:15 NT-Pro-B Natriuret Pep 266 pg/mL (0-450) 11/08/21 09:48 Total Protein 7.6 g/dL (6.6-8.7) 11/09/21 07:50 Albumin 4.0 g/dL (3.5-5.2) 11/09/21 07:50 Globulin 3.6 g/dL (1.3-4.6) 11/09/21 07:50 Triglycerides 165 mg/dL (0-150) H 11/06/21 04:20 Triglycerides Cancelled 11/06/21 04:20 Cholesterol 142 mg/dL (0-200) 11/06/21 04:20 Cholesterol Cancelled 11/06/21 04:20 LDL Cholesterol, Calc 72 mg/dL (50-129) 11/06/21 04:20 LDL Cholesterol, Calc Cancelled 11/06/21 04:20 HDL Cholesterol 37 mg/dL (60-100) L 11/06/21 04:20 HDL Cholesterol Cancelled 11/06/21 04:20 LDL/HDL Ratio 1.95 RATIO (0.00-3.22) 11/06/21 04:20 LDL/HDL Ratio Cancelled 11/06/21 04:20 Cholesterol/HDL Ratio 3.84 mg/dL (1.0-5.00) 11/06/21 04:20 Cholesterol/HDL Ratio Cancelled 11/06/21 04:20 TSH 1.84 uIU/mL (0.27-4.20) 11/05/21 16:15 A&P Assessment and plan (1) Diastolic CHF, acute: The etiology of the acute diastolic heart failure is not clear. Possibility of coronary ischemia causing this is a consideration. The abnormal MPI is suggestive of ischemia in the distribution of the left circumflex artery. This needs to be further evaluated. Patient may be continued on the current IV diuretics. He seems to have significant improvement of the edema with the increased dose of Lasix. Repeat BMP in the morning. Status: Acute (2) Abnormal myocardial perfusion study: This is suggestive of ischemia in the distribution of the left circumflex artery. Discussed in detail the implication of the test findings with the patient and his family. Both the patient and family wants him to go for the angiogram to better evaluate the coronary arteries and decide on management. We may go ahead and schedule the stress as early as possible. His heart failure need to be appropriately treated prior to the angiogram. Status: Acute (3) Benign essential hypertension with target blood pressure below 140/90: The antihypertensive medication may be optimized Status: Acute (4) Leg edema: I may go ahead and give him 3 doses of IV Lasix 60 mg every 8 hours. Along with potassium 20 mEq every 6 hours x4. We will repeat the BMP and BNP in the AM Status: Acute (5) Type 2 diabetes mellitus: Aggressive management of the diabetes as per the primary care Status: Acute (6) Dyslipidemia: May continue on the current medications. Status: Acute Plan We will continue the diuresis. We will repeat the BMP and CBC in the morning. If the lab results are acceptable, we may consider doing a cardiac catheterization on Thursday Attestations Medical Necessity Statement*: Patient requires continued hospital stay for close monitoring and further management Coding Level of Care Code Acute Family Development Extension Specialist for Chg Fwd History Expanded Problem Focused Exam Detailed Medical Decision Making Moderate Complexity Diagnoses Diastolic CHF, acute I50.31 Abnormal myocardial perfusion study R94.39 Benign essential hypertension with target blood pressure below 140/90 I10 Leg edema R60.0 Type 2 diabetes mellitus E11.9 Dyslipidemia E78.5
[2021-11-09 09:31] LABS: Carbon Dioxide 41 mmol/L (22-29)
--- NOTE | 2021-11-09 09:36 | PC.NURSE ---
Patients called for update, attempted to call back but no answer.
--- NOTE | 2021-11-09 09:48 | P.PN_ITS ---
Subjective Subjective: Patient was seen this morning, he sitting up in a chair, his edema is improving, shortness of breath is improving, remains on 2 L, chest pain Vitals/I&O/Wt Last Vital Signs Temp 98.9 F 11/09/21 07:00 Pulse 84 11/09/21 08:00 Resp 17 11/09/21 08:00 BP 154/71 11/09/21 07:00 Pulse Ox 93 11/09/21 08:00 11/08/21 11/09/21 11/09/21 22:59 06:59 14:59 Intake Total 240 / 832 180 / 180 Output Total 2825 / 3925 1400 / 5325 300 / 300 Balance -2585 / -3093 -1400 / -4493 -120 / -120 Physical Exam Const: COMMON NORMALS: no acute distress and patient oriented x3 Resp: COMMON NORMALS: normal respiratory effort, No retractions, No use of accessory muscles and clear to auscultation bilaterally AUSCULTATION: clear to auscultation bilaterally Cardio: COMMON NORMALS: regular rate, regular rhythm, S1 normal heart sound pr esent and S2 normal heart sound present RATE: regular rate RHYTHM: regular rhythm HEART SOUNDS: S1 normal heart sound present and S2 normal heart sound present GI: COMMON NORMALS: Normal to inspection, nondistended, normoactive bowel sounds present, Soft to palpation and non-tender PALPATION: Yes Soft to palpation Extremity: OTHER: 1+ pitting edema bilateral lower extremity Neuro: COMMON NORMALS: patient oriented x3 Psych: COMMON NORMALS: mental status grossly normal Data : 11/09/21 07:50 11/09/21 07:50 A&P Assessment and plan (1) Diastolic CHF, acute: Status: Acute (2) Shortness of breath: Status: Acute (3) Leg edema: Status: Acute (4) New onset left bundle branch block (LBBB): Status: Acute (5) New onset a-fib: Status: Acute (6) Acute kidney injury: Status: Acute Plan Bilateral lower extremity edema, with shortness of breath concerning for fluid overload -Highly likely suspicious for diastolic CHF exacerbation -Cardiac echocardiogram 1.? This is a technically difficult study.? Ultrasound enhancing ?agent Optison was used per protocol. ?2.? Normal left ventricular cavity size and systolic function. ?Left ventricular ejection fraction is estimated at 60%. Abnormal ?septal motion consistent with conduction abnormality. ?3. Probably normal right ventricle size and systolic function. ?4. No prior similar studies to compare. -Morning blood work pending, Lasix dosing based on creatinine - 5 L urine output in last 24 hours, creatinine up to 1.5, if cardiology is okay with it I decrease his Lasix to 60 mg every 24 hours, started Diamox as CO2 is elevated -Continue spironolactone -Fluid restrictions at 1000 cc -Maintain potassium greater than 4, magnesium greater than 2 -Encourage ambulation -Venous ultrasound for DVT negative -DNR/DNI, confirmed with patient, family at bedside -Lovenox for DVT prophylaxis New onset left bundle branch block -No complaints of chest pain -EKG shows A. fib, new onset LBBB, 6-hour troponin 20 -Cardiac echo as above -Aspirin, statin, beta-cyn -Cardiac stress test 1. Abnormal myocardial perfusion imaging with moderate sized area of ischemia ?in the left circumflex artery territory ?2. LV systolic function is normal -Cardiology consulted New onset atrial fibrillation -Rate control with metoprolol -Continue to monitor - Eliquis 5 mg twice daily -Potassium greater than 4, mag greater than 2 Type 2 diabetes mellitus, low-dose sliding scale COPD not in exacerbation, DuoNeb as needed Attestations Medical Necessity Statement*: Patient requires hospitalization, for fluid overload, positive stress test, diastolic CHF exacerbation with new onset A. fib Coding Level of Care Code Acute Safety Engineer Pressure Vessels for Chg Fwd Diagnoses Diastolic CHF, acute I50.31 Shortness of breath R06.02 Leg edema R60.0 New onset left bundle branch block (LBBB) I44.7 New onset a-fib I48.91 Acute kidney injury N17.9
[2021-11-09 11:05] LABS: Glucose Point of Care 151 mg/dL (70-110)
[2021-11-09 17:02] LABS: Glucose Point of Care 258 mg/dL (70-110)
--- NOTE | 2021-11-09 17:40 | PC.NURSE ---
Patient AAOx4 with elevated BP in AM, BP meds per chart and normalized pressures throughout shift see mar. No new events, patient OOBTC and ambulating to restroom with good UOP. Room clean and clutter free with call light in reach. WIll report to oncoming nurse at shift change.
[2021-11-09 20:11] LABS: Glucose Point of Care 135 mg/dL (70-110)
[2021-11-10] VITALS (12 sets, daily range): BP systolic 133–173; BP diastolic 58–91; PULSE 67–89; RESP 14–25; TEMP 36.3–37.6; O2SAT 92–96
--- NOTE | 2021-11-10 04:11 | PC.NURSE ---
Pt sitting up in chair watching tv and talking to staff. Pts resp even and non-labored no distress or sob noted. Pt had no c/o pain or discomfort at the present time. No needs voiced. Call light in reach. Will cont to monitor.
[2021-11-10 04:54] LABS: Basophils # 0.1 10^3/uL (0.0-0.1); Basophils % 1.1 %; Eosinophils # 0.4 10^3/uL (0.0-0.8); Eosinophils % 3.4 %; Hematocrit 45.4 % (42.0-52.0); Hemoglobin 12.7 g/dL (11.7-16.6); Lymphocytes # 1.5 10^3/uL (0.8-4.8); Mean Corpuscular Hemoglobin 24.8 pg (28.0-34.0); Mean Corpuscular Volume 88.7 fl (80-94); Mean Platelet Volume 10.5 fL (7.4-10.4); Monocytes % 9.8 %; Neutrophils # 7.46 10^3/uL (1.8-7.7); Neutrophils % 71.3 %; Nucleated Red Blood Cells % 0 %; Platelet Count 302 10^3/cmm (130-400); Red Blood Count 5.12 10^6/uL (4.1-5.3); Red Cell Distribution Width 15.3 % (12.1-15.1); White Blood Count 10.5 10^3/uL (4.0-10.0)
[2021-11-10 06:20] LABS: Glucose Point of Care 151 mg/dL (70-110)
[2021-11-10 06:24] LABS: Alanine Aminotransferase 17 U/L (0-41); Alkaline Phosphatase 71 IU/L (40-130); Aspartate Amino Transferase 23 U/L (0-40); Blood Urea Nitrogen 39 mg/dL (8-23); Calcium 10.6 mg/dL (8.5-10.5); Carbon Dioxide 40 mmol/L (22-29); Chloride 89 mmol/L (98-107); Globulin 3.2 g/dL (1.3-4.6); Glucose 152 mg/dL (65-115); Magnesium 2.3 mg/dL (1.7-2.3); Osmolality Calculated 296 mOsm/kg (285-295); Sodium 137 mmol/L (136-145); Total Bilirubin 0.5 mg/dL (0.15-1.2); Total Protein 7.2 g/dL (6.6-8.7)
--- NOTE | 2021-11-10 08:10 | PC.NURSE ---
received bedside report from radha porras. pt resting comfortably in chair. reviewed poc and assumed care of patient.
[2021-11-10] MEDS: atorvastatin 40 mg Tablet 20 MG PO (09:47)
[2021-11-10] MEDS: hyDRALAzine 25 mg Tablet PO ×3 (09:48→22:08)
[2021-11-10] MEDS: spironolactone 25 mg Tablet PO (09:48)
[2021-11-10] MEDS: ferrous sulfate EC 325 mg Tablet PO (09:48)
[2021-11-10] MEDS: potassium chloride ER 20 mEq Tablet PO (09:49)
[2021-11-10] MEDS: tamsulosin 0.4 mg Capsule 0.8 MG PO (09:49)
[2021-11-10] MEDS: metoprolol tartrate 50 mg Tablet PO ×2 (09:49→17:26)
[2021-11-10] MEDS: aspirin 81 mg EC Tablet PO (09:49)
[2021-11-10] MEDS: finasteride 5 mg Tablet PO (09:49)
[2021-11-10] MEDS: insulin lispro 100 unit/1 mL SUBCUT ×3 (09:50→17:26)
[2021-11-10] MEDS: pantoprazole DR 40 mg Tablet PO (09:50)
[2021-11-10] MEDS: FUROsemide 10 mg/mL SDV 10mL 40 MG IVP (09:51)
--- NOTE | 2021-11-10 09:51 | PM.PN ---
Subjective Subjective: Patient is feeling okay with no chest pain or chest tightness. No palpitations, dizziness or syncopal episode. No unusual shortness of breath. Has a baseline shortness of breath with activities. The leg edema has significantly improved. Diuresing well Medications: Medication Review Details: Current Medications Acetaminophen (Acetaminophen 325 Mg Tablet) 650 mg PO Q6H PRN PRN Reason: Mild/Mod Pain Or Temp >/= 101 Albuterol/Ipratropium (Ipratropium-Albuterol 3 Ml Neb) 3 ml INHALATION Q6H PRN PRN Reason: SHORTNESS OF BREATH Aspirin (Aspirin 81 Mg Ec Tablet) 81 mg PO DAILY [facility] Last Admin: 11/09/21 08:19 Dose: 81 mg Documented by: Atorvastatin Calcium (Atorvastatin 40 Mg Tablet) 20 mg PO DAILY [facility] Last Admin: 11/09/21 08:19 Dose: 20 mg Documented by: Dextrose (Dextrose 50% Syringe 50 Ml) 25 ml IVP ONCE PRN; Protocol PRN Reason: hypoglycemia protocol Dextrose (Dextrose 50% Syringe 50 Ml) 50 ml IVP PRN PRN; Protocol PRN Reason: hypoglycemia protocol Docusate Sodium (Docusate Sodium 100 Mg Capsule) 100 mg PO BID [facility] Last Admin: 11/09/21 17:01 Dose: 100 mg Documented by: Ferrous Sulfate (Ferrous Sulfate Ec 325 Mg Tablet) 325 mg PO DAILY [facility] Last Admin: 11/09/21 08:20 Dose: 325 mg Documented by: Finasteride (Finasteride 5 Mg Tablet) 5 mg PO DAILY [facility] Last Admin: 11/09/21 08:19 Dose: 5 mg Documented by: Furosemide (Furosemide 10 Mg/Ml Sdv 10ml) 40 mg IVP Q24H [facility] Glucagon (Glucagon 1 Mg/Ml Inj 1 Ml) 1 mg IM ONCE PRN; Protocol PRN Reason: Adult Acute Hypoglycemia Prot. Hydralazine HCl (Hydralazine 25 Mg Tablet) 25 mg PO TID [facility] Last Admin: 11/09/21 20:20 Dose: 25 mg Documented by: Dextrose (D5w) 500 mls @ 100 mls/hr IV ONCE PRN; Protocol PRN Reason: Adult Acute Hypoglycemia Prot Insulin Human Lispro (Insulin Lispro 100 Unit/1 Ml) 0 unit SUBCUT TIDWM [facility]; Protocol Last Admin: 11/09/21 17:03 Dose: 6 unit Documented by: Lactulose (Lactulose Oral Liq 20 Gm/30 Ml Udc) 10 gm PO DAILY PRN; Protocol PRN Reason: Constipation (see protocol) Metoprolol Tartrate (Metoprolol Tartrate 50 Mg Tablet) 50 mg PO BID [facility] Last Admin: 11/09/21 17:01 Dose: 50 mg Documented by: Nystatin (Nystatin Cream 30 Gm) 1 applic TOPICAL TID PRN PRN Reason: Rash Ondansetron HCl (Ondansetron 2 Mg/Ml Sdv 2 Ml) 4 mg IVP Q8H PRN PRN Reason: vomiting, or N/V if npo Ondansetron HCl (Ondansetron 2 Mg/Ml Sdv 2 Ml) 4 mg IVP Q2M PRN PRN Reason: NAUSEA Pantoprazole Sodium (Pantoprazole Dr 40 Mg Tablet) 40 mg PO DAILY [facility] Last Admin: 11/09/21 08:19 Dose: 40 mg Documented by: Potassium Chloride (Potassium Chloride Er 20 Meq Tablet) 20 meq PO BID [facility] Last Admin: 11/09/21 17:01 Dose: 20 meq Documented by: Spironolactone (Spironolactone 25 Mg Tablet) 25 mg PO DAILY [facility] Last Admin: 11/09/21 08:20 Dose: Not Given Documented by: Tamsulosin HCl (Tamsulosin 0.4 Mg Capsule) 0.8 mg PO DAILY [facility] Last Admin: 11/09/21 08:19 Dose: 0.8 mg Documented by: Zinc Oxide (Zinc Oxide Oint 30 Gm) 1 applic TOPICAL TID PRN PRN Reason: Rash Vitals/I&O/Wt Last Vital Signs Temp 97.9 F 11/10/21 07:30 Pulse 89 11/10/21 07:44 Resp 16 11/10/21 07:44 BP 172/87 11/10/21 07:30 Pulse Ox 94 11/10/21 07:44 11/09/21 11/10/21 11/10/21 22:59 06:59 14:59 Intake Total 180 / 840 400 / 1240 240 / 240 Output Total 900 / 2100 400 / 2500 Balance -720 / -1260 0 / -1260 240 / 240 Physical Exam Narrative: GENERAL: The patient is alert and oriented times three. Not in any acute distress. Morbidly obese HEENT: No significant pallor, icterus or lymphadenopathy. NECK: Trachea appears to be central. No masses noted. No JVD or thyromegaly appreciated. No carotid bruit. RESPIRATORY: Chest is symmetrical. No intercostals muscle retraction or any accessory muscle activation. There is no chest wall tenderness. Breath sounds are heard bilaterally. No rales or rhonchi heard. No evidence of any consolidation. BREASTS: Deferred. HEART: The PMI could not be palpated. No palpable precordial events. S1 and S2 are normal. No S3 or S4 heard. No pericardial rub or any click heard. ABDOMEN: No vessel pulsations or distention. No tenderness. No organomegaly appreciated. No abdominal bruit. Bowel sounds are normally heard. : Deferred. RECTAL: Deferred. LYMPHATIC: No lymphadenopathy noted in the neck or groin. EXTREMITIES: 1+ edema both lower extremities. No cyanosis. Has some diffuse erythema in the lower extremity MUSCULOSKELETAL: No acute joint deformities or swelling SKIN: There are no significant scars or skin rash noted. NEUROPSYCHIATRIC: The patient is alert and oriented x3. Appears to be in a good mood. The higher functions are grossly within normal limits. No tremors or rigidity noted. Data : 11/10/21 04:47 11/10/21 06:03 A&P Assessment and plan (1) Acute kidney injury superimposed on chronic kidney disease: I may cut back on the IV Lasix to 40mg daily. Cut back on the potassium to 20 mg p.o. daily. Careful IV hydration with normal saline 75 cc/h. Repeat BMP in the morning. If the BUN/creatinine is acceptable, may consider cardiac catheterization tomorrow Status: Acute (2) Diastolic CHF, acute: The etiology of the acute diastolic heart failure is not clear. Possibility of coronary ischemia causing this is a consideration. The abnormal MPI is suggestive of ischemia in the distribution of the left circumflex artery. This needs to be further evaluated. Change of the diuretics as mentioned above Status: Acute (3) Abnormal myocardial perfusion study: This is suggestive of ischemia in the distribution of the left circumflex artery. Discussed in detail the implication of the test findings with the patient and his family. Both the patient and family wants him to go for the angiogram to better evaluate the coronary arteries and decide on management. Consider cardiac catheterization tomorrow afternoon Status: Acute (4) Benign essential hypertension with target blood pressure below 140/90: The blood pressure seems to be getting under control. Continue to optimize medications. Status: Acute (5) Leg edema: Significant improvement. Medication adjustments as mentioned above. Status: Acute (6) Type 2 diabetes mellitus: Aggressive management of the diabetes as per the primary care Status: Acute (7) Dyslipidemia: May continue on the current medications. Status: Acute Plan Repeat BMP in the morning. If it is acceptable, consider cardiac catheterization tomorrow. Continue on the other current measures. Attestations Medical Necessity Statement*: Patient requires continued hospital stay for close monitoring and further management Coding Level of Care Code Acute Inoculator for Chg Fwd History Expanded Problem Focused Exam Detailed Medical Decision Making Moderate Complexity Diagnoses Diastolic CHF, acute I50.31 Abnormal myocardial perfusion study R94.39 Benign essential hypertension with target blood pressure below 140/90 I10 Leg edema R60.0 Type 2 diabetes mellitus E11.9 Dyslipidemia E78.5 Acute kidney injury superimposed on chronic kidney disease N17.9; N18.9
[2021-11-10] MEDS: enoxaparin 40 mg/0.4 mL Syringe SUBCUT (11:15)
[2021-11-10] MEDS: sodium chlor 0.9% + KCl 20 mEq 20 MEQ/1,000 ML BAG 75 MEQ IV (11:16)
[2021-11-10 11:40] LABS: Glucose Point of Care 175 mg/dL (70-110)
--- NOTE | 2021-11-10 12:34 | P.PN_ITS ---
Subjective Subjective: Patient was seen this morning, family at bedside, he tells me he feels a lot better, still on 2 L, he is anxious on when his coronary angiogram will be Vitals/I&O/Wt Last Vital Signs Temp 97.3 F L 11/10/21 11:21 Pulse 76 11/10/21 11:21 Resp 25 H 11/10/21 11:21 BP 162/91 11/10/21 11:21 Pulse Ox 95 11/10/21 11:21 11/09/21 11/10/21 11/10/21 22:59 06:59 14:59 Intake Total 180 / 840 400 / 1240 240 / 240 Output Total 900 / 2100 400 / 2500 Balance -720 / -1260 0 / -1260 240 / 240 Physical Exam Const: COMMON NORMALS: no acute distress and patient oriented x3 Resp: COMMON NORMALS: normal respiratory effort, No retractions, No use of accessory muscles and clear to auscultation bilaterally AUSCULTATION: clear to auscultation bilaterally Cardio: COMMON NORMALS: regular rate, regular rhythm, S1 normal heart sound present and S2 normal heart sound present RATE: regular rate RHYTHM: regular rhythm HEART SOUNDS: S1 normal heart sound present and S2 normal heart sound present GI: COMMON NORMALS: Normal to inspection, nondistended, normoactive bowel sounds present, Soft to palpation and non-tender PALPATION: Yes Soft to palpation Extremity: NARRATIVE EXTREMITY EXAM: Nonpitting edema Neuro: COMMON NORMALS: patient oriented x3 Psych: COMMON NORMALS: mental status grossly normal Data : 11/10/21 04:47 11/10/21 06:03 A&P Assessment and plan (1) Diastolic CHF, acute: Status: Acute (2) Shortness of breath: Status: Acute (3) Leg edema: Status: Acute (4) New onset left bundle branch block (LBBB): Status: Acute (5) New onset a-fib: Status: Acute (6) Acute kidney injury: Status: Acute Plan Bilateral lower extremity edema, with shortness of breath concerning for fluid overload -Highly likely suspicious for diastolic CHF exacerbation -Cardiac echocardiogram 1.? This is a technically difficult study.? Ultrasound enhancing ?agent Optison was used per protocol. ?2.? Normal left ventricular cavity size and systolic function. ?Left ventricular ejection fraction is estimated at 60%. Abnormal ?septal motion consistent with conduction abnormality. ?3. Probably normal right ventricle size and systolic function. ?4. No prior similar studies to compare. -Creatinine 1.6 -Uropathy 0.5 L, creatinine 1.6, decrease Lasix to 40 mg IV push once daily -Start gentle IV hydration at 50 cc an hour in preparation for possible coronary angiogram tomorrow -Continue spironolactone -Fluid restrictions at 1000 cc -Maintain potassium greater than 4, magnesium greater than 2 -Encourage ambulation -Venous ultrasound for DVT negative -DNR/DNI, confirmed with patient, family at bedside -Lovenox for DVT prophylaxis New onset left bundle branch block -No complaints of chest pain -EKG shows A. fib, new onset LBBB, 6-hour troponin 20 -Cardiac echo as above -Aspirin, statin, beta-cyn -Cardiac stress test 1. Abnormal myocardial perfusion imaging with moderate sized area of ischemia ?in the left circumflex artery territory ?2. LV systolic function is normal -Cardiology consulted, gentle IV fluids, plan on cardiac catheterization tomorrow New onset atrial fibrillation, paroxysmal -Rate control with metoprolol -Continue to monitor - Eliquis 5 mg twice daily -Potassium greater than 4, mag greater than 2 Type 2 diabetes mellitus, low-dose sliding scale COPD not in exacerbation, DuoNeb as needed Attestations Medical Necessity Statement*: Patient requires hospitalization for fluid overload, new onset LBBB, positive stress test, proceeding to coronary angiography tomorrow Coding Level of Care Code Acute Flange Machine Operator for Chg Fwd Diagnoses Diastolic CHF, acute I50.31 Shortness of breath R06.02 Leg edema R60.0 New onset left bundle branch block (LBBB) I44.7 New onset a-fib I48.91 Acute kidney injury N17.9
[2021-11-10 16:23] LABS: Glucose Point of Care 150 mg/dL (70-110)
[2021-11-10 23:15] LABS: Glucose Point of Care 186 mg/dL (70-110)
[2021-11-11] VITALS (8 sets, daily range): BP systolic 117–163; BP diastolic 63–95; PULSE 67–79; RESP 17–26; TEMP 36.6–36.8; O2SAT 94–95
--- NOTE | 2021-11-11 00:06 | PC.NURSE ---
Pt sitting in chair watching tv and talking to staff. Pts resp even and non-labored no distress or sob noted. Pt had no c/o pain or discomfort at the present time. Pt had some questions about how long he would have to lay flat after heart cath procedure. This nurse attempted to educate and answer pts questions about cath procedure. Pt stated I am going to have to talk to them about this in the morning because I can't lay flat. This nurse continued to answer pts questions and instructed and encouraged pt to ask cardiac cath team any further questions if needed. Pt verbalized understanding. No needs voiced further. Call light in reach. Will cont to monitor.
[2021-11-11] MEDS: sodium chlor 0.9% + KCl 20 mEq 20 MEQ/1,000 ML BAG 75 MEQ IV (04:01)
[2021-11-11 05:44] LABS: Basophils # 0.1 10^3/uL (0.0-0.1); Basophils % 0.8 %; Eosinophils # 0.3 10^3/uL (0.0-0.8); Eosinophils % 2.9 %; Hematocrit 44.2 % (42.0-52.0); Hemoglobin 12.3 g/dL (11.7-16.6); Lymphocytes # 1.7 10^3/uL (0.8-4.8); Mean Corpuscular HGB Conc 27.8 g/dL (30.0-36.0); Mean Corpuscular Hemoglobin 24.5 pg (28.0-34.0); Mean Platelet Volume 10.6 fL (7.4-10.4); Monocytes # 0.9 10^3/uL (0.2-0.9); Monocytes % 8.7 %; Neutrophils # 7.57 10^3/uL (1.8-7.7); Neutrophils % 71.1 %; Nucleated Red Blood Cells % 0 %; Platelet Count 275 10^3/cmm (130-400); Red Blood Count 5.02 10^6/uL (4.1-5.3); Red Cell Distribution Width 15.1 % (12.1-15.1); White Blood Count 10.7 10^3/uL (4.0-10.0)
[2021-11-11 06:02] LABS: Potassium 4.2 mmol/L (3.5-5.1)
[2021-11-11 06:18] LABS: Glucose Point of Care 150 mg/dL (70-110)
[2021-11-11 06:34] LABS: Alanine Aminotransferase 16 U/L (0-41); Albumin Level 3.9 g/dL (3.5-5.2); Alkaline Phosphatase 66 IU/L (40-130); Anion Gap 18.2 (5-19); Aspartate Amino Transferase 21 U/L (0-40); Blood Urea Nitrogen 45 mg/dL (8-23); Calcium 10.1 mg/dL (8.5-10.5); Carbon Dioxide 30 mmol/L (22-29); Chloride 94 mmol/L (98-107); Globulin 3.2 g/dL (1.3-4.6); Glucose 137 mg/dL (65-115); Magnesium 2.4 mg/dL (1.7-2.3); Osmolality Calculated 300 mOsm/kg (285-295); Phosphorus 3.4 mg/dL (2.5-4.5); Sodium 138 mmol/L (136-145); Total Bilirubin 0.4 mg/dL (0.15-1.2); Total Protein 7.1 g/dL (6.6-8.7)
[2021-11-11] MEDS: potassium chloride ER 20 mEq Tablet PO (08:52)
[2021-11-11] MEDS: atorvastatin 40 mg Tablet 20 MG PO (08:52)
[2021-11-11] MEDS: docusate sodium 100 mg Capsule PO (08:52)
[2021-11-11] MEDS: tamsulosin 0.4 mg Capsule 0.8 MG PO (08:52)
[2021-11-11] MEDS: pantoprazole DR 40 mg Tablet PO (08:52)
[2021-11-11] MEDS: spironolactone 25 mg Tablet PO (08:52)
[2021-11-11] MEDS: finasteride 5 mg Tablet PO (08:52)
[2021-11-11] MEDS: aspirin 81 mg EC Tablet PO (08:52)
[2021-11-11] MEDS: hyDRALAzine 25 mg Tablet PO (08:52)
[2021-11-11] MEDS: ferrous sulfate EC 325 mg Tablet PO (08:53)
[2021-11-11] MEDS: metoprolol tartrate 50 mg Tablet PO (08:53)
--- NOTE | 2021-11-11 09:15 | P.PN_ITS ---
Subjective Subjective: Patient is feeling okay. He was found to have elevated BUN and creatinine today. Denies any chest pain. Still has significant shortness of breath with activities. Peripheral edema is improving. He is still not able to lie down in his bed. According to him, he always sleeps in the recliner. He is wondering whether he will be able to Medications: Medication Review Details: Current Medications Acetaminophen (Acetaminophen 325 Mg Tablet) 650 mg PO Q6H PRN PRN Reason: Mild/Mod Pain Or Temp >/= 101 Albuterol/Ipratropium (Ipratropium-Albuterol 3 Ml Neb) 3 ml INHALATION Q6H PRN PRN Reason: SHORTNESS OF BREATH Aspirin (Aspirin 81 Mg Ec Tablet) 81 mg PO DAILY [facility] Last Admin: 11/11/21 08:52 Dose: 81 mg Documented by: Atorvastatin Calcium (Atorvastatin 40 Mg Tablet) 20 mg PO DAILY [facility] Last Admin: 11/11/21 08:52 Dose: 20 mg Documented by: Dextrose (Dextrose 50% Syringe 50 Ml) 25 ml IVP ONCE PRN; Protocol PRN Reason: hypoglycemia protocol Dextrose (Dextrose 50% Syringe 50 Ml) 50 ml IVP PRN PRN; Protocol PRN Reason: hypoglycemia protocol Docusate Sodium (Docusate Sodium 100 Mg Capsule) 100 mg PO BID [facility] Last Admin: 11/11/21 08:52 Dose: 100 mg Documented by: Enoxaparin Sodium (Enoxaparin 40 Mg/0.4 Ml Syringe) 40 mg SUBCUT Q24H [facility] Last Admin: 11/10/21 11:15 Dose: 40 mg Documented by: Ferrous Sulfate (Ferrous Sulfate Ec 325 Mg Tablet) 325 mg PO DAILY [facility] Last Admin: 11/11/21 08:53 Dose: 325 mg Documented by: Finasteride (Finasteride 5 Mg Tablet) 5 mg PO DAILY [facility] Last Admin: 11/11/21 08:52 Dose: 5 mg Documented by: Glucagon (Glucagon 1 Mg/Ml Inj 1 Ml) 1 mg IM ONCE PRN; Protocol PRN Reason: Adult Acute Hypoglycemia Prot. Hydralazine HCl (Hydralazine 25 Mg Tablet) 25 mg PO TID [facility] Last Admin: 11/11/21 08:52 Dose: 25 mg Documented by: Dextrose (D5w) 500 mls @ 100 mls/hr IV ONCE PRN; Protocol PRN Reason: Adult Acute Hypoglycemia Prot Potassium Chloride/Sodium Chloride (Sodium Chlor 0.9% + Kcl 20 Meq) 20 meq in 1,000 mls @ 75 mls/hr IV .[id number] [facility] Last Admin: 11/11/21 08:39 Dose: Not Given Documented by: Insulin Human Lispro (Insulin Lispro 100 Unit/1 Ml) 0 unit SUBCUT TIDWM [facility]; Protocol Last Admin: 11/11/21 08:53 Dose: Not Given Documented by: Lactulose (Lactulose Oral Liq 20 Gm/30 Ml Udc) 10 gm PO DAILY PRN; Protocol PRN Reason: Constipation (see protocol) Metoprolol Tartrate (Metoprolol Tartrate 50 Mg Tablet) 50 mg PO BID [facility] Last Admin: 11/11/21 08:53 Dose: 50 mg Documented by: Nystatin (Nystatin Cream 30 Gm) 1 applic TOPICAL TID PRN PRN Reason: Rash Ondansetron HCl (Ondansetron 2 Mg/Ml Sdv 2 Ml) 4 mg IVP Q8H PRN PRN Reason: vomiting, or N/V if npo Ondansetron HCl (Ondansetron 2 Mg/Ml Sdv 2 Ml) 4 mg IVP Q2M PRN PRN Reason: NAUSEA Pantoprazole Sodium (Pantoprazole Dr 40 Mg Tablet) 40 mg PO DAILY [facility] Last Admin: 11/11/21 08:52 Dose: 40 mg Documented by: Potassium Chloride (Potassium Chloride Er 20 Meq Tablet) 20 meq PO DAILY [facility] Last Admin: 11/11/21 08:52 Dose: 20 meq Documented by: Spironolactone (Spironolactone 25 Mg Tablet) 25 mg PO DAILY [facility] Last Admin: 11/11/21 08:52 Dose: 25 mg Documented by: Tamsulosin HCl (Tamsulosin 0.4 Mg Capsule) 0.8 mg PO DAILY [facility] Last Admin: 11/11/21 08:52 Dose: 0.8 mg Documented by: Zinc Oxide (Zinc Oxide Oint 30 Gm) 1 applic TOPICAL TID PRN PRN Reason: Rash Vitals/I&O/Wt Last Vital Signs Temp 98.2 F 11/11/21 07:01 Pulse 76 11/11/21 07:32 Resp 17 11/11/21 07:32 BP 163/92 11/11/21 07:01 Pulse Ox 94 11/11/21 07:32 11/10/21 11/11/21 11/11/21 22:59 06:59 14:59 Intake Total 240 / 840 1000 / 1840 347.5 / 347.5 Output Total 600 / 800 800 / 1600 Balance -360 / 40 200 / 240 347.5 / 347.5 Physical Exam Narrative: GENERAL: The patient is alert and oriented times three. Not in any acute distress. Morbidly obese HEENT: No significant pallor, icterus or lymphadenopathy. NECK: Trachea appears to be central. No masses noted. No JVD or thyromegaly appreciated. No carotid bruit. RESPIRATORY: Chest is symmetrical. No intercostals muscle retraction or any accessory muscle activation. There is no chest wall tenderness. Breath sounds are heard bilaterally. No rales or rhonchi heard. No evidence of any con solidation. BREASTS: Deferred. HEART: The PMI could not be palpated. No palpable precordial events. S1 and S2 are normal. No S3 or S4 heard. No pericardial rub or any click heard. ABDOMEN: No vessel pulsations or distention. No tenderness. No organomegaly appreciated. No abdominal bruit. Bowel sounds are normally heard. : Deferred. RECTAL: Deferred. LYMPHATIC: No lymphadenopathy noted in the neck or groin. EXTREMITIES: Trace edema both lower extremities. No cyanosis. Has some diffuse erythema in the lower extremity MUSCULOSKELETAL: No acute joint deformities or swelling SKIN: There are no significant scars or skin rash noted. NEUROPSYCHIATRIC: The patient is alert and oriented x3. Appears to be in a good mood. The higher functions are grossly within normal limits. No tremors or rigid ity noted. Data : 11/11/21 04:12 11/11/21 04:12 Other Labs: Laboratory Last Values WBC 10.7 10^3/uL (4.0-10.0) H 11/11/21 04:12 RBC 5.02 10^6/uL (4.1-5.3) 11/11/21 04:12 Hgb 12.3 g/dL (11.7-16.6) 11/11/21 04:12 Hct 44.2 % (42.0-52.0) 11/11/21 04:12 MCV 88.0 fl (80-94) 11/11/21 04:12 MCH 24.5 pg (28.0-34.0) L 11/11/21 04:12 MCHC 27.8 g/dL (30.0-36.0) L 11/11/21 04:12 RDW 15.1 % (12.1-15.1) 11/11/21 04:12 Plt Count 275 10^3/cmm (130-400) 11/11/21 04:12 MPV 10.6 fL (7.4-10.4) H 11/11/21 04:12 Neut % (Auto) 71.1 % 11/11/21 04:12 Lymph % (Auto) 16.0 % 11/11/21 04:12 [place] % (Auto) 8.7 % 11/11/21 04:12 Eos % (Auto) 2.9 % 11/11/21 04:12 Baso % (Auto) 0.8 % 11/11/21 04:12 Neut # (Auto) 7.57 10^3/uL (1.8-7.7) 11/11/21 04:12 Lymph # (Auto) 1.7 10^3/uL (0.8-4.8) 11/11/21 04:12 [place] # (Auto) 0.9 10^3/uL (0.2-0.9) 11/11/21 04:12 Eos # (Auto) 0.3 10^3/uL (0.0-0.8) 11/11/21 04:12 Baso # (Auto) 0.1 10^3/uL (0.0-0.1) 11/11/21 04:12 Nucleated RBC % (auto) 0 % 11/11/21 04:12 Nucleated RBCs # 0.0 /100WBC 11/11/21 04:12 Sodium 138 mmol/L (136-145) 11/11/21 04:12 Potassium 4.2 mmol/L (3.5-5.1) 11/11/21 04:12 Chloride 94 mmol/L (98-107) L 11/11/21 04:12 Carbon Dioxide 30 mmol/L (22-29) H 11/11/21 04:12 Anion Gap 18.2 (5-19) 11/11/21 04:12 BUN 45 mg/dL (8-23) H 11/11/21 04:12 Creatinine 1.5 mg/dL (0.7-1.2) H 11/11/21 04:12 GFR Calculation Not Reportable 11/11/21 04:12 Glucose 137 mg/dL (65-115) H 11/11/21 04:12 POC Glucose 150 mg/dL (70-110) H 11/11/21 06:02 Estimat Average Glucose 146 11/06/21 04:20 Hemoglobin A1c 6.7 % (4.0-6.0) H 11/06/21 04:20 Calculated Osmolality 300 mOsm/kg (285-295) H 11/11/21 04:12 Lactate 1.0 mmol/L (0.5-2.2) 11/05/21 13:30 Calcium 10.1 mg/dL (8.5-10.5) 11/11/21 04:12 Phosphorus 3.4 mg/dL (2.5-4.5) 11/11/21 04:12 Magnesium 2.4 mg/dL (1.7-2.3) H 11/11/21 04:12 Total Bilirubin 0.4 mg/dL (0.15-1.2) 11/11/21 04:12 AST 21 U/L (0-40) 11/11/21 04:12 ALT 16 U/L (0-41) 11/11/21 04:12 Alkaline Phosphatase 66 IU/L (40-130) 11/11/21 04:12 Troponin T Gen 5 ng/L 20 ng/L (0-15) H 11/06/21 04:20 Troponin T Baseline 17 ng/L (0-15) H 11/05/21 13:30 Troponin T 120 Minute 18.24 ng/L (0-15) H 11/05/21 16:15 Delta Troponin T 1.24 ABS# (0-10) 11/05/21 16:15 NT-Pro-B Natriuret Pep 266 pg/mL (0-450) 11/08/21 09:48 Total Protein 7.1 g/dL (6.6-8.7) 11/11/21 04:12 Albumin 3.9 g/dL (3.5-5.2) 11/11/21 04:12 Globulin 3.2 g/dL (1.3-4.6) 11/11/21 04:12 Triglycerides 165 mg/dL (0-150) H 11/06/21 04:20 Triglycerides Cancelled 11/06/21 04:20 Cholesterol 142 mg/dL (0-200) 11/06/21 04:20 Cholesterol Cancelled 11/06/21 04:20 LDL Cholesterol, Calc 72 mg/dL (50-129) 11/06/21 04:20 LDL Cholesterol, Calc Cancelled 11/06/21 04:20 HDL Cholesterol 37 mg/dL (60-100) L 11/06/21 04:20 HDL Cholesterol Cancelled 11/06/21 04:20 LDL/HDL Ratio 1.95 RATIO (0.00-3.22) 11/06/21 04:20 LDL/HDL Ratio Cancelled 11/06/21 04:20 Cholesterol/HDL Ratio 3.84 mg/dL (1.0-5.00) 11/06/21 04:20 Cholesterol/HDL Ratio Cancelled 11/06/21 04:20 TSH 1.84 uIU/mL (0.27-4.20) 11/05/21 16:15 A&P Assessment and plan (1) Acute kidney injury superimposed on chronic kidney disease: Because of the rising BUN and creatinine, I may hold off on the Lasix now. Increase IV fluid to 75 cc/h. Repeat BMP tomorrow. May continue on the current measures. Status: Acute (2) Diastolic CHF, acute: The etiology of the acute diastolic heart failure is not clear. Possibility of coronary ischemia causing this is a consideration. The abnormal MPI is suggestive of ischemia in the distribution of the left circumflex artery. This needs to be further evaluated. Status: Acute (3) Abnormal myocardial perfusion study: This is suggestive of ischemia in the distribution of the left circumflex artery. Discussed in detail the implication of the test findings with the patient and his family. Both the patient and family wants him to go for the angiogram to better evaluate the coronary arteries and decide on management. Patient has second thoughts about coronary angiogram. He may not want to go through the angiogram at this point. But he did not make his final decision yet. Status: Acute (4) Benign essential hypertension with target blood pressure below 140/90: The blood pressure seems to be getting under control. Continue to optimize medications. Status: Acute (5) Leg edema: Significant improvement. Medication adjustments as mentioned above. Status: Acute (6) Type 2 diabetes mellitus: Aggressive management of the diabetes as per the primary care Status: Acute (7) Dyslipidemia: May continue on the current medications. Status: Acute Plan Repeat BMP in the morning. May continue on her current measures. Attestations Medical Necessity Statement*: If the patient make the decision not to go to the angiogram, he may be discharged home on medications. Coding Level of Care Code Acute Safety Engineer for Umesh Fwd History Expanded Problem Focused Exam Detailed Medical Decision Making Moderate Complexity Diagnoses Acute kidney injury superimposed on chronic kidney disease N17.9; N18.9 Diastolic CHF, acute I50.31 Abnormal myocardial perfusion study R94.39 Benign essential hypertension with target blood pressure below 140/90 I10 Leg edema R60.0 Type 2 diabetes mellitus E11.9 Dyslipidemia E78.5
--- NOTE | 2021-11-11 10:07 | PC.SOCIAL ---
IMM Update Pg. 2 of IMM updated and reviewed with patient, who verbalized understanding. Copy provided.
--- NOTE | 2021-11-11 10:18 | PC.CHAP ---
Pastoral Care Encounter/Spiritual Assessment Type of Contact [] Declined bead forming machine set up operator visit [] Patient/Family/Request visit [] Outpatient visit [] Follow-up visit [] Physician referral [] Code/Alert [x] Routine visit [] Staff referral [] Actively dying [] Patient sleeping [x] Family support [] [] Out of room [] Palliative care [] [] Receiving care in room [] Pre-surgical visit [] Trauma [] Long length of stay [] ICU visit [] Other: Relational/Emotional Strength [] Patient feels connected with others/family/visitors/staff [] Distress [] Loneliness/isolation [] Abandonment Spirituality of Patient [] Person of Disha [] Attends Advent of their Disha [] Believes in Prayer [] Reads Bible or Judaism materials [] There are Spiritual issues to be addressed Csr Interventions [x] Prayer [x] Active listening [x] Non-anxious presence [x] Spiritual/emotional support [] Crisis/trauma care [] Spiritual counseling [] Bereavement support [] Provided bereavement packet [] Provided Bible/devotional materials [] Provided toy/stuffed animal, coloring book to patient or family member [] Provided Communion [] Anointing/[place] [] Salvation [x] Completed spiritual assessment [] Other: Impact on Illness or Injury [] Angry [] Fearful [] Anxious [] Often cries [] Exhaustion [] Unable to work [] Unable to attend adventist [] Unable to walk/stand [] Unable to read [] Unable to drive [] Unable to eat/drink [] Unable to sleep [] Unable to be with family [] Patient intubated [] Other: Summary so happy family visiting Time spent with patient 5 min
[2021-11-11] MEDS: enoxaparin 40 mg/0.4 mL Syringe SUBCUT (10:32)
[2021-11-11 11:30] LABS: Glucose Point of Care 211 mg/dL (70-110)
[2021-11-11] MEDS: insulin lispro 100 unit/1 mL SUBCUT (13:07)
--- NOTE | 2021-11-11 14:16 | P.DS_ITS ---
Discharge Providers Date of Admission: 11/06/21 09:25 Date of Discharge: November 11, 2021 Attending Provider at Admission: Madi Antonio MD Attending Provider at Discharge: Hung Eaton Primary Care Provider: Shukri Corral DO Diagnoses at Discharge Discharge Diagnosis (1) Acute kidney injury superimposed on chronic kidney disease: Status: Acute (2) Diastolic CHF, acute: Status: Acute (3) Abnormal myocardial perfusion study: Status: Acute (4) Benign essential hypertension with target blood pressure below 140/90: Status: Acute (5) Leg edema: Status: Acute (6) Type 2 diabetes mellitus: Status: Acute (7) Dyslipidemia: Status: Acute Reason for Visit Reason for Visit: [facility] Evaluation unspecified Hospital Course Hospital Course Pleasant 76-year-old gentleman with history of m,spl DM2, BPH, HTN, HLD, was admitted with symptoms of worsening shortness of breath, lower extremity edema, with symptoms of CHF, with mild troponin elevation without peak, but with noted new LBBB on presentation, also with noted new atrial fibrillation during hospitalization. Was treated with IV diuretics, fluid restriction, started on spironolactone, but with noted CHRISTIAN on CKD, creatinine up to 1.5-1.6, today down to 1.5, has more recently been on gentle hydration. Underwent additional assessment by echocardiogram which showed normal ejection fraction, abnormal septal motion consistent with conduction abnormality. As was stress testing, with stress test showing abnormal myocardial perfusion with moderate sized area of ischemia in distribution of LCx. Was assessed by cardiology, with discussion and arrangements of coronary angiography as next step for assessment of ischemic heart disease, however, he declined to proceed with coronary angiography, explains he perhaps would consider doing it via wrist access, but first after discussion with cardiology he is wanting to have medication therapy only and proceed only if that fails. He denies any chest pain or pressure. He is feeling well. His shortness of breath has resolved. Edema has significantly improved. For now spironolactone. Continue with acute kidney injury. Please reassess potassium, renal function, consider resumption Is continued on diuretic as needed, continues on Plavix, Eliquis, beta-cyn, statin was increased to 10 mg for now, empagliflozin. If tolerating consider additional escalation. He is asked to follow-up with cardiology in office. Please reassess renal function. Physical Exam Narrative: Up in chair. Interactive, conversant. Const: COMMON NORMALS: alert GENERAL APPEARANCE: cooperative and comfortable NUTRITIONAL APPEARANCE: obese ORIENTATION/CONSCIOUSNESS: Yes awake HENMT: COMMON NORMALS: normocephalic, EAC's normal, Normal external nose present and moist oral mucous membranes HEAD & SCALP: normocephalic NOSE: Normal external nose present EXTERNAL AUDITORY CANAL: EAC's normal Neck/C-Spine: COMMON NORMALS: no meningeal signs Chest: CHEST: Yes Symmetrical chest wall rise Resp: COMMON NORMALS: clear to auscultation bilaterally AUSCULTATION: clear to auscultation bilaterally Cardio: COMMON NORMALS: regular rate, regular rhythm and No murmurs present (Cardio) RATE: regular rate RHYTHM: regular rhythm GI: COMMON NORMALS: Normal to inspection, nondistended, normoactive bowel sounds present, Soft to palpation and non-tender PALPATION: Yes Soft to palpation Extremity: GENERAL: Yes edema (1+) Neuro: COMMON NORMALS: moves all extremities SENSORIUM/ORIENTATION: Yes alert MENINGEAL SIGNS: Yes no meningeal signs Psych: COMMON NORMALS: mental status grossly normal Skin: COMMON NORMALS: no wounds RASHES: no rashes Discharge Data Studies Completed and Pending Completed Studies During Hospitalization Category Date Time Status Sestamibi Stress Test Request Routine Exams 11/08/21 06:00 Draft XR chest 1V portable [id number] Urgent Exams 11/05/21 11:23 Completed NM tyler perf SPECT r/s* [id number] Routine Nuc Med 11/08/21 10:00 [place] [id number] Routine Ultrasound 11/07/21 10:46 Completed CV. echo wo/w contrast [id number] Routine Ultrasound 11/05/21 17:47 Completed Pending at discharge Category Date Time Status SOLAR SALES REP request for service Routine Exams 11/11/21 07:01 Ordered Sestamibi Stress Test Request Routine Exams 11/07/21 09:54 Ordered Complete Blood Count w/Auto AM LABS Lab 11/12/21 04:00 Ordered Comprehensive Metabolic Panel AM LABS Lab 11/12/21 04:00 Ordered Magnesium AM LABS Lab 11/12/21 04:00 Ordered Phosphorus AM LABS Lab 11/12/21 04:00 Ordered Radiology Impressions Chest X-Ray 11/05/21 11:23 IMPRESSION: No acute findings. Laboratory Results WBC 10.7 10^3/uL (4.0-10.0) H 11/11/21 04:12 RBC 5.02 10^6/uL (4.1-5.3) 11/11/21 04:12 Hgb 12.3 g/dL (11.7-16.6) 11/11/21 04:12 Hct 44.2 % (42.0-52.0) 11/11/21 04:12 MCV 88.0 fl (80-94) 11/11/21 04:12 MCH 24.5 pg (28.0-34.0) L 11/11/21 04:12 MCHC 27.8 g/dL (30.0-36.0) L 11/11/21 04:12 RDW 15.1 % (12.1-15.1) 11/11/21 04:12 Plt Count 275 10^3/cmm (130-400) 11/11/21 04:12 MPV 10.6 fL (7.4-10.4) H 11/11/21 04:12 Neut % (Auto) 71.1 % 11/11/21 04:12 Lymph % (Auto) 16.0 % 11/11/21 04:12 Ramsey % (Auto) 8.7 % 11/11/21 04:12 Eos % (Auto) 2.9 % 11/11/21 04:12 Baso % (Auto) 0.8 % 11/11/21 04:12 Neut # (Auto) 7.57 10^3/uL (1.8-7.7) 11/11/21 04:12 Lymph # (Auto) 1.7 10^3/uL (0.8-4.8) 11/11/21 04:12 Ramsey # (Auto) 0.9 10^3/uL (0.2-0.9) 11/11/21 04:12 Eos # (Auto) 0.3 10^3/uL (0.0-0.8) 11/11/21 04:12 Baso # (Auto) 0.1 10^3/uL (0.0-0.1) 11/11/21 04:12 Nucleated RBC % (auto) 0 % 11/11/21 04:12 Nucleated RBCs # 0.0 /100WBC 11/11/21 04:12 Sodium 138 mmol/L (136-145) 11/11/21 04:12 Potassium 4.2 mmol/L (3.5-5.1) 11/11/21 04:12 Chloride 94 mmol/L (98-107) L 11/11/21 04:12 Carbon Dioxide 30 mmol/L (22-29) H 11/11/21 04:12 Anion Gap 18.2 (5-19) 11/11/21 04:12 BUN 45 mg/dL (8-23) H 11/11/21 04:12 Creatinine 1.5 mg/dL (0.7-1.2) H 11/11/21 04:12 GFR Calculation Not Reportable 11/11/21 04:12 Glucose 137 mg/dL (65-115) H 11/11/21 04:12 POC Glucose 211 mg/dL (70-110) H 11/11/21 11:20 Estimat Average Glucose 146 11/06/21 04:20 Hemoglobin A1c 6.7 % (4.0-6.0) H 11/06/21 04:20 Calculated Osmolality 300 mOsm/kg (285-295) H 11/11/21 04:12 Lactate 1.0 mmol/L (0.5-2.2) 11/05/21 13:30 Calcium 10.1 mg/dL (8.5-10.5) 11/11/21 04:12 Phosphorus 3.4 mg/dL (2.5-4.5) 11/11/21 04:12 Magnesium 2.4 mg/dL (1.7-2.3) H 11/11/21 04:12 Total Bilirubin 0.4 mg/dL (0.15-1.2) 11/11/21 04:12 AST 21 U/L (0-40) 11/11/21 04:12 ALT 16 U/L (0-41) 11/11/21 04:12 Alkaline Phosphatase 66 IU/L (40-130) 11/11/21 04:12 Troponin T Gen 5 ng/L 20 ng/L (0-15) H 11/06/21 04:20 Troponin T Baseline 17 ng/L (0-15) H 11/05/21 13:30 Troponin T 120 Minute 18.24 ng/L (0-15) H 11/05/21 16:15 Delta Troponin T 1.24 ABS# (0-10) 11/05/21 16:15 NT-Pro-B Natriuret Pep 266 pg/mL (0-450) 11/08/21 09:48 Total Protein 7.1 g/dL (6.6-8.7) 11/11/21 04:12 Albumin 3.9 g/dL (3.5-5.2) 11/11/21 04:12 Globulin 3.2 g/dL (1.3-4.6) 11/11/21 04:12 Triglycerides 165 mg/dL (0-150) H 11/06/21 04:20 Triglycerides Cancelled 11/06/21 04:20 Cholesterol 142 mg/dL (0-200) 11/06/21 04:20 Cholesterol Cancelled 11/06/21 04:20 LDL Cholesterol, Calc 72 mg/dL (50-129) 11/06/21 04:20 LDL Cholesterol, Calc Cancelled 11/06/21 04:20 HDL Cholesterol 37 mg/dL (60-100) L 11/06/21 04:20 HDL Cholesterol Cancelled 11/06/21 04:20 LDL/HDL Ratio 1.95 RATIO (0.00-3.22) 11/06/21 04:20 LDL/HDL Ratio Cancelled 11/06/21 04:20 Cholesterol/HDL Ratio 3.84 mg/dL (1.0-5.00) 11/06/21 04:20 Cholesterol/HDL Ratio Cancelled 11/06/21 04:20 TSH 1.84 uIU/mL (0.27-4.20) 11/05/21 16:15 Vitals Last Vital Signs Temp 97.9 F 11/11/21 11:16 Pulse 67 11/11/21 11:16 Resp 23 H 11/11/21 11:16 BP 149/67 11/11/21 11:16 Pulse Ox 94 11/11/21 11:16 Discharge Plan Discharge Patient Disposition: Home Condition: Stable Prescriptions: New Eliquis 5 mg tablet 5 mg PO BID Qty: 180 0RF empagliflozin 10 mg tablet 10 mg PO DAILY Qty: 90 0RF clopidogrel 75 mg tablet 75 mg PO DAILY Qty: 90 0RF Continued furosemide 20 mg tablet 20 mg PO QAM PRN (Reason: edema) Qty: 5 0RF Advair Diskus 250-50 mcg/dose Blister With Device 1 inh INHALATION BID 0RF metoprolol tartrate 100 mg Tablet 50 mg PO BID 0RF zinc oxide 20 % Ointment 1 applic TOPICAL TID PRN (Reason: Rash) 0RF tamsulosin 0.4 mg Capsule 0.8 mg PO DAILY 0RF pantoprazole 40 mg Tablet,Delayed Release (Dr/Ec) 40 mg PO DAILY 0RF ferrous sulfate 325 mg (65 mg iron) Tablet 325 mg PO DAILY 0RF metformin 1,000 mg Tablet 500 mg PO DAILY 0RF nystatin 100,000 unit/gram Cream 1 applic TOPICAL TID PRN (Reason: Rash) 0RF albuterol sulfate 90 mcg/actuation Hfa Aerosol Inhaler 2 puff INHALATION QID PRN (Reason: Shortness Of Breath) 0RF finasteride 5 mg Tablet 5 mg PO DAILY 0RF Changed rosuvastatin 10 mg Tablet 10 mg PO DAILY Qty: 90 0RF Discharge Orders: Discharge Order (Routine); Ordered 11/11/21 Ordered By: Hung Eaton Referrals: [facility] [Outside] Vaibhav Hernandez MD [Physician] - 1 month Shukri Corral DO [Primary Care Provider] - ( ) Kristal Wallace FNP [Nurse Practitioner] - 2 weeks Discharge Diet: Cardiac and Diabetic Discharge Activity: Increase activity as tolerated and Oxygen as instructed Patient Instructions: Clopidogrel (By mouth), Apixaban (By mouth), Heart Failure (GEN), Coronary Artery Disease (GEN), A-fib (Atrial Fibrillation) (GEN), Acute Kidney Injury (GEN) Activity Restrictions/Additional Instructions: Please maintain fluid restriction of 1000 mL/day. Please follow-up with cardiology in office and with your primary doctor with regards to suspected coronary disease, after initiation of medical therapy, heart failure. Please have your primary doctor also follow-up your kidney function to assess for improvement in acute kidney injury. Continue oxygen. You were also noted to have atrial fibrillation. He was started on Eliquis due to this to help reduce chance of stroke. You were also started on Plavix due to suspected coronary disease. Please do not take aspirin in combination with the other 2 medications. Measure heart rates 3 times daily, write down values to bring to your appointment. Discharge Attestations Time Spent in Discharge Care*: greater than 30 min Quality Metrics Clinical Quality Measures [ No reported AMI, CVA or VTE this stay] Coding Level of Care Code Acute Chg FW DC note Diagnoses Acute kidney injury superimposed on chronic kidney disease N17.9; N18.9 Diastolic CHF, acute I50.31 Abnormal myocardial perfusion study R94.39 Benign essential hypertension with target blood pressure below 140/90 I10 Leg edema R60.0 Type 2 diabetes mellitus E11.9 Dyslipidemia E78.5
--- NOTE | 2021-11-11 16:24 | PC.NURSE ---
Discharge Note Patient discharged to Home via private vehicle accompanied by spouse. Discharge instructions reviewed with patient and/or packaging sales representative. Mobile pharmacy medications and/or prescriptions provided. Belongings/home medications returned.
== END 2021-11-11 16:24 | disposition home health service (06) | DRG 291 ==
LOC: ER 15:51 → CSU 17:15
PROVIDERS: Internal Medicine; Admitting Provider Family Medicine; Emergency Provider Emergency Medicine; PCP Emergency Medicine Emergency Medical Services; Visit Provider Internal Medicine
DX: I13.0 Hypertensive heart and chronic kidney disease with heart failure and stage 1 through stage 4 chronic kidney disease, or unspecified chronic kidney disease (principal); I50.31 Acute diastolic (congestive) heart failure; J96.11 Chronic respiratory failure with hypoxia; Z68.44 Body mass index [BMI] 60.0-69.9, adult; N17.9 Acute kidney failure, unspecified; N18.9 Chronic kidney disease, unspecified; E11.22 Type 2 diabetes mellitus with diabetic chronic kidney disease; E78.5 Hyperlipidemia, unspecified; Z99.81 Dependence on supplemental oxygen; N40.0 Benign prostatic hyperplasia without lower urinary tract symptoms; J44.9 Chronic obstructive pulmonary disease, unspecified; E66.9 Obesity, unspecified; Z87.891 Personal history of nicotine dependence; I44.7 Left bundle-branch block, unspecified; Z66 Do not resuscitate; I48.91 Unspecified atrial fibrillation; R94.39 Abnormal result of other cardiovascular function study; Z79.84 Long term (current) use of oral hypoglycemic drugs
CPT/HCPCS: 36415; 36416; 71045; 78452; 80053; 80061; 82962; 83036; 83605; 83735; 83880; 84100; 84443; 84484; 85025; 93005; 93017; 93970; 94640; 96372; 96374; 99285; A9500; C8929; G0378; J1650; J1815; J1940; J2270; J2785

== ENCOUNTER → 2021-11-26 10:31 | Outpatient (BNVA) | payer OTHER, SELFPAY | PROVIDERS: PCP Emergency Medicine Emergency Medical Services; Visit Provider Nurse Practitioner Family | DX: I13.0 Hypertensive heart and chronic kidney disease with heart failure and stage 1 through stage 4 chronic kidney disease, or unspecified chronic kidney disease (principal); R94.39 Abnormal result of other cardiovascular function study; N18.9 Chronic kidney disease, unspecified; I50.33 Acute on chronic diastolic (congestive) heart failure; R60.0 Localized edema | CPT/HCPCS: 80048; 99214 ==

== ENCOUNTER 2021-12-04 07:15 | Outpatient (CLI) | payer OTHER, SELFPAY ==
[2021-12-03 09:12] LABS: Basophils # 0.1 10^3/uL (0.0-0.1); Basophils % 0.7 %; Eosinophils # 0.3 10^3/uL (0.0-0.8); Eosinophils % 3.4 %; Hematocrit 41.2 % (42.0-52.0); Hemoglobin 11.4 g/dL (11.7-16.6); Lymphocytes # 1.3 10^3/uL (0.8-4.8); Lymphocytes % 16.1 %; Mean Corpuscular HGB Conc 27.7 g/dL (30.0-36.0); Mean Corpuscular Hemoglobin 24.7 pg (28.0-34.0); Mean Corpuscular Volume 89.4 fl (80-94); Mean Platelet Volume 10.3 fL (7.4-10.4); Monocytes # 0.6 10^3/uL (0.2-0.9); Monocytes % 6.7 %; Neutrophils # 6.08 10^3/uL (1.8-7.7); Neutrophils % 72.9 %; Nucleated Red Blood Cells % 0 %; Platelet Count 229 10^3/cmm (130-400); Red Blood Count 4.61 10^6/uL (4.1-5.3); Red Cell Distribution Width 15.6 % (12.1-15.1); White Blood Count 8.3 10^3/uL (4.0-10.0)
[2021-12-03 09:23] LABS: Prothrombin Time (Patient) 13.5 Seconds (12.0-15.1)
[2021-12-03 09:37] LABS: Anion Gap 12.2 (5-19); Blood Urea Nitrogen 17 mg/dL (8-23); Calcium 9.1 mg/dL (8.5-10.5); Carbon Dioxide 32 mmol/L (22-29); Chloride 99 mmol/L (98-107); Glucose 140 mg/dL (65-115); NT Pro B Type Natriuretic Pept 200 pg/mL (0-450); Osmolality Calculated 292 mOsm/kg (285-295); Potassium 4.2 mmol/L (3.5-5.1); Sodium 139 mmol/L (136-145)
[2021-12-04] VITALS (19 sets, daily range): BP systolic 176–261; BP diastolic 83–159; PULSE 71–92; RESP 16–25; TEMP 37; O2SAT 90–95; BMI 59.1
--- NOTE | 2021-12-04 07:35 | XACV_ITS ---
Exam Room: 2 Ht: 160 cm Wt: 151 kg BSA: 2.70 m2 Gender: Male : 1945 Any Known Allergies: No known allergies Exam Priority: Routine Procedure(s): Procedure Description: Diagnostic procedure Procedure Description: Left Heart Catheterization Procedure Description: Coronary Angiography David TROY; Diagnostic Cath Status: Elective Diagnostic Findings * Left main is a medium caliber short vessel with no significant stenotic lesions. * The left anterior descending artery is a medium caliber vessel which appears to bifurcate proximally. One of the bifurcation branches was found to have around 20% diffuse narrowing proximally. The other branch was found to have minimal intimal irregularities. * The left circumflex artery is a medium caliber vessel which was found to be bifurcating, after giving off an atrial branch. Just before the bifurcation, there was a 80% focal narrowing. It was not convincing since it was not visible in all the views. * The right coronary artery is a medium to large caliber dominant vessel which was found to have mild diffuse intimal irregularities with no significant stenotic lesions. PCI Status: Elective PCI LVEF Assessed: No Interventional Findings * IFR 0.93. In looking at the images, there is a possiblity this may be a myocardial bridge. In the spider view it looks more like a bridge, but cannot be confirmed in other views. Also, the patient is so obese, the reliablilty of the nuclear scan is suspect. I believe the IFR confirms the lesion is not flow limiting. Decision for PCI with Surgical Consult: No Conclusions 1. This is a 76-year-old white male with history of diabetes, hypertension, dyslipidemia, COPD, morbid obesity presented with new onset of heart failure and atypical chest symptoms. His EKG revealed a left bundle branch block. He had a myocardial perfusion imaging which revealed a moderate area of reversible defect in the distribution of the left circumflex artery. Because of his ongoing symptoms, in order to further evaluate his coronary status, a cardiac catheterization was recommended. Patient underwent left heart catheterization with a left and right coronary angiogram today. The findings are as follows. 2. Short left main with no significant disease. Mild disease in the right left anterior descending artery. Possible high-grade lesion in the left circumflex artery. Cannot exclude myocardial bridge. Mild disease in the right coronary artery. Markedly elevated LVEDP suggesting left ventricular diastolic dysfunction. 3. I reviewed and discussed the cardiac catheterization data with the Dr. Jennings. It was thought to be appropriate to consider IFR of the circumflex artery lesion and possible PCI. Dr. Jennings took over further management of this patient at this point. The IFR was found to be 0.92. For this reason, it was decided to treat the patient medically. He was transferred to medical floor stable condition.. Diagnostic RX Recommendation: medical therapy and/or counseling LV EDP: 31 mmHg Left Ventriculography Findings: * LV gram was not performed because of the limitations on the dye usage. The LVEDP was 31 mmHg. Pressures Phase:Rest AO : 111 / 72 ( 89 ) @ 10:11:00 AM 113 / 75 ( 92 ) @ 10:12:00 AM 164 / 28 ( 108 ) @ 10:16:00 AM 172 / 55 ( 96 ) @ 10:16:00 AM 142 / 94 ( 116 ) @ 10:18:00 AM 150 / 76 ( 103 ) @ 10:53:00 AM LV : 188 / 4 / 31 @ 10:16:00 AM 188 / 3 / 30 @ 10:16:00 AM Valves Phase:DefaultPhase AV : 18.0 @ 10:01:44 AM 18.0 @ 10:01:44 AM AV Mean Gradient: 14.0 @ 10:01:44 AM Clinical Evaluation EBL: 5mL-10mL Procedural Details Procedure Consent Obtained. Current Diagnosis : Chest Pain. Pre-Procedure Time Out. Identified patient by full name and date of as verbalized by the patient/guarantor. Does the consent match the physician's order: Yes. Accurate & Complete Informed Consent: Yes. Inpatient/Outpatient History & Physical on Chart: Yes. If H&P is completed, is and addenduem needed: No; If yes, is the addendum complete: N/A. Visualize and Verify Site with Patient/Guarantor: N/A. Relevant Radiology Images available: Yes. Pre-op teaching completed and patient verbalized understanding. The risks, benefits, and alternatives of sedation and/or procedure were discussed by physician. The patient agrees to continue. Procedure started. [facility] Clinical Fraility Score: 4: Vulnerable. Sanding Machine Tender Automatic Indications: Suspected CAD. Chest Pain Symptom Assessment: Atypical Angina. Correct patient, site and procedure confirmed by cath team. Current diagnosis: Chest Pain. PERRLA. Strong, equal hand insole lip turner bilaterally. Lungs clear x 5 lobes. A 20 gauge IV was started in the left forearm using aseptic technique. IV Fluids: 0.9% NaCl at KVO. 0 mL infused prior to laboratory chemist. Pre Procedural Pulses: bilateral dorsalis pedis was 1+. Pre Procedural Pulses: bilateral posterior tibial was Doppled. Pre Procedural Pulses: bilateral radial was 3+. Oxygen started at 2liters/min via nasal canula. right groin was prepped with chloroprep then draped in the usual sterile fashion. right radial was prepped with chloroprep then draped in the usual sterile fashion. Baseline sample Acquired. HR: 0 BPM. Physician arrived. Physician scrubbed in. Immediate Pre-Procedure Time Out. Correct Patient: Yes; Correct Procedure: Yes; Correct Site: Yes; Correct Patient Position: Yes; Correct Supplies: Yes; Dried Flammable Prep: Yes; Blood Products Available: N/A;. Lidocaine 1% infiltrated to the right radial. Arterial access obtained. A 5 belarusian Irvin catheter in over wire. Multiple views taken of left coronary artery. Catheter removed over the standard wire. A 5 belarusian JR4 catheter in over wire. EDP Sample taken: LV 188/4,31; HR: 99 BPM; SpO2: 94%. Pullback taken: LV 188/3,30; AO 164/28(108); Mean: 14mmHg, Peak to Peak: 18mmHg, SEP: 27sec/min; HR: 95 BPM; SpO2: 94%. Multiple views taken of right coronary artery. Catheter removed over the standard wire. Physician scrubbed out. Dr. Jennings called to review films. Dr. Jennings arrived. Dr. Jennings scrubbed in to perform intervention. 6 belarusian XB 3 guide catheter was inserted over the wire. FFR guidewire was advanced through the guide catheter to lesion in the mid Circ. IFR results: 0.92. Wire out. Guide catheter out. A TR Band was successful obtaining hemostatsis at the Right Radial artery insertion site. Post Procedure: Pulses reassessed and unchanged. PERRLA. Strong, equal hand insole lip turner bilaterally. No VTE prophylaxis required. Medication's Wasted: Lidocaine 1% = 3 mL. Medication's Wasted: Nitro = 49.8 mg. Medication's Wasted: Heparin = 1000 units. Total IV fluids: 42 mL. Contrast type used: Omnipaque 300 mgI/mL, 500 mL bottle. Complications: None. Estimated blood loss: 5mL-10mL. Responsiveness - Normal response to verbal stimuli; alert and oriented, PERRLA. Airway - Unaffected, no intervention required; spontaneous ventilation. Circulation: W/N/L, pulses unchanged. Nausea/Vomiting: No. Vital chart was stopped. Procedure completed. Patient transferred by stretcher to CPRU. Access Site Site: Right Radial artery Sheath Size: 6 Fr Hemostasis Method: TR Band Hemostasis Success: Successful Procedure Medications Start: 8:55 AM Stop: 8:55 AM Medication: Versed Amount: 1 mg Route: I.V. Start: 8:55 AM Stop: 8:55 AM Medication: Fentanyl Amount: 50 mcg Route: I.V. Start: 9:06 AM Stop: 9:06 AM Medication: Verapamil Amount: 5 mg Route: I.A. Start: 9:06 AM Stop: 9:06 AM Medication: Nitrogylcerin Amount: 200 mcg Route: I.A. Start: 9:08 AM Stop: 9:08 AM Medication: Heparin Amount: 5000 units Route: I.V. Start: 9:11 AM Stop: 9:11 AM Medication: Versed Amount: 1 mg Route: I.V. Start: 9:22 AM Stop: 9:22 AM Medication: Fentanyl Amount: 25 mcg Route: I.V. Start: 9:34 AM Stop: 9:34 AM Medication: Fentanyl Amount: 25 mcg Route: I.V. Start: 9:41 AM Stop: 9:41 AM Medication: Versed Amount: 1 mg Route: I.V. I, the attending physician, have reviewed and verified all procedure medications. Yes, all medications given per verbal order History/Risk Factors Hypertension: Yes Dyslipidemia: Yes Peripheral Arterial Disease (PAD): No Myocardial Infarction (SD): No Obesity: No Renal Disease: No Prior Interventions PCI: No CABG: No Valve Surgery: No Report Signatures Diagnostic Workflow Finalized by Dr Vaibhav Hernandez MD [facility] on 12/04/2021 06:58 PM Interventional Workflow Finalized by Dr. Orion Jennings MD on 12/04/2021 10:11 AM
[2021-12-04] MEDS: levalbuterol 0.63 mg/3 mL Neb INHALATION (08:15)
--- NOTE | 2021-12-04 08:37 | W.PM.OPSUD ---
Surgery/Procedure H&P Update DATE OF PROCEDURE: December 04, 2021 DATE H&P PERFORMED: 11/08/21 H&P UPDATE INFORMATION: I have reviewed H&P completed within last 30 days, I have examined patient prior to procedure and Changes to prior documentation as noted here (Scattered expiratory wheezing of the lungs.) CHANGES TO PREVIOUS DOCUMENTATION: Patient had some wheezing and difficulty in breathing when he came to the outpatient department. After the breathing treatment, he felt better. He and the family wants to go ahead with the procedure. PREOP DIAGNOSIS: ASHD/left bundle branch block PRIMARY INDICATION FOR PROCEDURE: Patient with diastolic heart failure, abnormal myocardial perfusion imaging suggesting moderate area of ischemia in the distribution of the left circumflex artery. Left bundle branch block by EKG. History of diabetes, essential benign hypertension, dyslipidemia and COPD PLANNED PROCEDURE: Operation Date: 12/04/21 08:30 Proposed Procedures p Cardiac Catheterization(Left) - Vaibhav Hernandez MD PATIENT REASSESSED PRIOR TO SEDATION, WITH NO CHANGE NOTED: Yes PHYSICAL EXAM: alert, oriented x 3, clear to auscultation bilaterally (Scattered expiratory scattered expiratory wheezing) and regular rate & rhythm AIRWAY EVAL/ANESTHESIA PLAN: see other exam findings, ASA III, Monitored Anesthesia, Local Anesthesia, Risks, benefits & alternatives of sedation and/or procedure discussed and Patient agrees to continue as planned
--- NOTE | 2021-12-04 11:13 | PC.NURSE ---
received pt from logging rafter laborer [facility]. pt alert and oriented x3. pt complains on no pain. tr band on right wrist with distal pulses palpable. pt educated about restrictions of right wrist. pt acknowledged understanding. pt put on vitals machine and will be monitored per protocol.
--- NOTE | 2021-12-04 14:24 | PC.NURSE ---
Patient given discharge instructions verbal and handout instructions. Pt verbalized understanding of instructions. Pt transported to private vehicle via wheelchair.
== END 2021-12-04 14:19 | disposition home or self-care (01) ==
PROVIDERS: Internal Medicine Cardiovascular Disease; PCP Emergency Medicine Emergency Medical Services; Visit Provider Internal Medicine Cardiovascular Disease
DX: I25.10 Atherosclerotic heart disease of native coronary artery without angina pectoris (principal); R06.2 Wheezing; R06.02 Shortness of breath; I44.7 Left bundle-branch block, unspecified; I11.0 Hypertensive heart disease with heart failure; I50.30 Unspecified diastolic (congestive) heart failure; E11.9 Type 2 diabetes mellitus without complications; E78.5 Hyperlipidemia, unspecified; J44.9 Chronic obstructive pulmonary disease, unspecified; E66.01 Morbid (severe) obesity due to excess calories; Z68.43 Body mass index [BMI] 50.0-59.9, adult
CPT/HCPCS: 36415; 80048; 83880; 85025; 85610; 86850; 86900; 93452; 93458; 93571; 94640; 96360; 96361; 99152; 99153; C1769; C1887; C1894; J1644; J2250; J3010; J3490; J7030; J7614; Q9967

== ENCOUNTER → 2021-12-12 09:31 | Outpatient (BNVA) | payer OTHER, SELFPAY | PROVIDERS: PCP Emergency Medicine Emergency Medical Services; Visit Provider Nurse Practitioner Family | DX: Z09 Encounter for follow-up examination after completed treatment for conditions other than malignant neoplasm (principal); I10 Essential (primary) hypertension | CPT/HCPCS: 99213; 99214 ==

== ENCOUNTER → 2022-01-02 11:18 | Outpatient (BNVA) | payer OTHER, SELFPAY | PROVIDERS: PCP Emergency Medicine Emergency Medical Services; Visit Provider Internal Medicine Cardiovascular Disease | DX: Z09 Encounter for follow-up examination after completed treatment for conditions other than malignant neoplasm (principal); I13.0 Hypertensive heart and chronic kidney disease with heart failure and stage 1 through stage 4 chronic kidney disease, or unspecified chronic kidney disease; E13.22 Other specified diabetes mellitus with diabetic chronic kidney disease; N18.9 Chronic kidney disease, unspecified; I50.31 Acute diastolic (congestive) heart failure; N17.9 Acute kidney failure, unspecified; Z87.891 Personal history of nicotine dependence; Z79.84 Long term (current) use of oral hypoglycemic drugs; R60.0 Localized edema; I44.7 Left bundle-branch block, unspecified; E66.9 Obesity, unspecified; Z68.44 Body mass index [BMI] 60.0-69.9, adult; Z79.01 Long term (current) use of anticoagulants; I48.91 Unspecified atrial fibrillation | CPT/HCPCS: 99214 ==

== ENCOUNTER 2022-01-30 12:17 | Inpatient (IN) | payer OTHER, MEDICARE, SELFPAY ==
[2022-01-30 12:28] VITALS: BP 179/78; PULSE 78; RESP 16; TEMP 36.7; O2SAT 88; BMI 60.5
--- NOTE | 2022-01-30 13:04 | XR_ITS ---
WS: [id number] Exam: XR chest 1V portable [id number] Date/Time of Exam: 01/30/2022 1:09 PM Reason For Exam: fluid retention Comparison 09/10/2021. The lungs are fully expanded. No acute infiltrates or pleural effusions are seen. Mild cardiac enlarg ement with pulmonary vascular congestion. Regional bony elements are intact. Visualized mediastinal s ilhouette is normal in contour. XR/XR chest 1V portable [id number] IMPRESSION: 1. Mild cardiac enlargement with mild pulmonary vascular congestion.
--- NOTE | 2022-01-30 15:05 | ECG_ITS ---
[facility] Test Date: 2022-01-30 Pat Name: Clint Quevedo Department: Room: Gender: Male Asset Protection Representative: : 1945 Requested By: Queenie Westbrook Order Number: [id number] Gino MD: Tiffanie Flores M.D. Measurements Intervals [place] Rate: 85 P: 70 TN: 187 QRS: -46 QRSD: 156 T: 114 QT: 390 QTc: 465 Interpretive Statements SINUS RHYTHM WITH MARKED SINUS ARRHYTHMIA LEFT AXIS DEVIATION [QRS AXIS < -30] LEFT BUNDLE BRANCH BLOCK [120+ ms QRS DURATION, 80+ ms Q/S IN V1/V2, 85+ ms R IN I/aVL/V5/V6] Compared to ECG 01/30/2022 15:50:43 Left-axis deviation now present Left bundle-branch block now present Atrial fibrillation no longer present Ventricular premature complex(es) no longer present Aberrant conduction of supraventricular beat(s) no longer present Intraventricular conduction delay no longer present Myocardial infarct finding no longer present Electronically Signed On 01-31-2022 17:51:03 CDT by Tiffanie Flores M.D. [email or web address]
--- NOTE | 2022-01-30 15:50 | ECG_ITS ---
[facility] Test Date: 2022-01-30 Pat Name: Clint Quevedo Department: Room: Gender: Male Cell Installer: : 1945 Requested By: Queenie Westbrook Order Number: [id number] Gino MD: Vaibhav Hernandez M.D. Measurements Intervals [place] Rate: 97 P: ID: QRS: -51 QRSD: 141 T: 114 QT: 379 QTc: 482 Interpretive Statements ATRIAL FIBRILLATION WITH ABERRANT CONDUCTION OR VENTRICULAR PREMATURE COMPLEXES INTRAVENTRICULAR CONDUCTION DELAY [130+ ms QRS DURATION] LATERAL MYOCARDIAL INFARCTION , PROBABLY RECENT [40+ ms Q WAVE AND/OR ST/T ABNORMALITY IN I/aVL/V5/V6] ACUTE OK Compared to ECG 11/07/2021 09:03:56 Ventricular premature complex(es) now present Aberrant conduction of supraventricular beat(s) now present Intraventricular conduction delay now present Myocardial infarct finding now present Sinus rhythm no longer present Left-axis deviation no longer present Left bundle-branch block no longer present Electronically Signed On 01-30-2022 21:29:10 CDT by Vaibhav Hernandez M.D. [id number]
[2022-01-30 17:35] LABS: Troponin(5th) Baseline 19 ng/L (0-15)
[2022-01-30 17:36] LABS: Basophils # 0.1 10^3/uL (0.0-0.1); Basophils % 0.7 %; Eosinophils # 0.2 10^3/uL (0.0-0.8); Eosinophils % 2.1 %; Hematocrit 42.9 % (42.0-52.0); Hemoglobin 11.3 g/dL (11.7-16.6); Lymphocytes # 1.4 10^3/uL (0.8-4.8); Lymphocytes % 14.5 %; Mean Corpuscular HGB Conc 26.3 g/dL (30.0-36.0); Mean Corpuscular Volume 94.9 fl (80-94); Mean Platelet Volume 10.6 fL (7.4-10.4); Monocytes # 0.8 10^3/uL (0.2-0.9); Monocytes % 8.8 %; Neutrophils # 6.86 10^3/uL (1.8-7.7); Neutrophils % 73.3 %; Nucleated Red Blood Cells % 0 %; Platelet Count 229 10^3/cmm (130-400); Red Blood Count 4.52 10^6/uL (4.1-5.3); Red Cell Distribution Width 15.4 % (12.1-15.1); White Blood Count 9.4 10^3/uL (4.0-10.0)
[2022-01-30 18:13] LABS: Alanine Aminotransferase 10 U/L (0-41); Albumin Level 3.8 g/dL (3.5-5.2); Alkaline Phosphatase 75 IU/L (40-130); Anion Gap 11.2 (5-19); Aspartate Amino Transferase 14 U/L (0-40); Blood Urea Nitrogen 20 mg/dL (8-23); Calcium 9.4 mg/dL (8.5-10.5); Carbon Dioxide 39 mmol/L (22-29); Chloride 98 mmol/L (98-107); Glucose 123 mg/dL (65-115); NT Pro B Type Natriuretic Pept 752 pg/mL (0-450); Osmolality Calculated 302 mOsm/kg (285-295); Potassium 4.2 mmol/L (3.5-5.1); Sodium 144 mmol/L (136-145); Total Bilirubin 0.4 mg/dL (0.15-1.2); Total Protein 6.8 g/dL (6.6-8.7)
--- NOTE | 2022-01-30 19:05 | ECG_ITS ---
[facility] Test Date: 2022-01-30 Pat Name: Clint Quevedo Department: Room: 250 Gender: Male Weed Burner: : 1945 Requested By: Queenie Westbrook Order Number: [id number] Gino MD: Tiffanie Flores M.D. Measurements Intervals [place] Rate: 74 P: [place]: QRS: -48 QRSD: 156 T: 108 QT: 392 QTc: 437 Interpretive Statements ATRIAL FIBRILLATION LEFT AXIS DEVIATION [QRS AXIS < -30] LEFT BUNDLE BRANCH BLOCK [120+ ms QRS DURATION, 80+ ms Q/S IN V1/V2, 85+ ms R IN I/aVL/V5/V6] Compared to ECG 01/30/2022 15:50:43 Left-axis deviation now present Left bundle-branch block now present Ventricular premature complex(es) no longer present Aberrant conduction of supraventricular beat(s) no longer present Intraventricular conduction delay no longer present Myocardial infarct finding no longer present Electronically Signed On 01-31-2022 10:39:14 CDT by Tiffanie Flores M.D. [id number]
--- NOTE | 2022-01-30 22:05 | ED_ITS ---
HPI - General Adult General: Chief complaint: Extremity Problem,Nontraumatic Stated complaint: Reevaluated Time Seen by Provider: 01/30/22 21:59 History of Present Illness: Patient is a 76-year-old male with history of COPD, diabetes, hypertension, hyperlipidemia, CHF on 20 mg of Lasix presenting to the emergency room for evaluation of shortness of breath and volume overload. Patient says that he was told to come to the emergency room by [facility] for increased work of breathing and leg swelling despite compliant Lasix. Patient denies any fever/chills, cough, chest pain, abdominal, and diarrhea melena hematochezia. Patient has no complaints. Patient follows Dr. Jennings from cardiology. Patient has had significant weight gain the last 2 weeks and would like to remove the fluids. At baseline, patient is on 2 L oxygen. However he has been finding himself using more oxygen at night when he sleeps when or when he lies flat Onset: acute on chronic Duration:ongoing Location:home Severity:moderate Associated symptoms: Reports dyspnea; Deny chest pain, nausea, rash, palpitations or vomiting Review of Systems Const: Denies: fever(s) or chills Eyes: Denies: change in vision ENMT: Denies: mouth pain Card: Denies: chest pain or palpitations Resp: Reports: dyspnea; Denies: non-productive cough GI: Denies: abdominal pain, nausea, vomiting or diarrhea : Denies: dysuria Musc: Denies: extremity pain Skin/Breast: Denies: rash or new lesions Neuro: Denies: weakness in extremities Psych: Reports: other (Normal mood) Kali/Lymph: Denies: easy bruising [facility] ED PFSH: Medical History Anticoagulation adequate with anticoagulant therapy Avascular necrosis of femoral head Benign essential hypertension with target blood pressure below 140/90 BPH (benign prostatic hyperplasia) COPD (chronic obstructive pulmonary disease) Diabetes Diabetes 1.5, managed as type 2 Dyslipidemia Hypertension Obesity Type 2 diabetes mellitus Surgical History History of cholecystectomy Family History Father CAD (coronary artery disease) Mother Perforated viscus Social History Smoking and tobacco status: former smoker (quit 1997) Physical Exam Const: COMMON NORMALS: alert HENMT: COMMON NORMALS: atraumatic HEAD & SCALP: atraumatic MOUTH: moist mucous membranes not abnormal Eye: COMMON NORMALS: EOMs intact bilaterally and conjunctivae normal CONJUNCTIVA: Yes conjunctivae normal Neck/C-Spine: COMMON NORMALS: full ROM and supple Resp: COMMON NORMALS: normal respiratory effort OTHER: + Fine crackles throughout the lung verma bilaterally Cardio: COMMON NORMALS: regular rate RATE: regular rate GI: COMMON NORMALS: Soft to palpation and non-tender PALPATION: Yes Soft to palpation OTHER: No focal TTP. NO guarding rebound, guarding, rigidity. No CVA tenderness to percussion. Neg Prescott/Neg McBurney's point tenderness, no suprabupic tenderness to palpation. Extremity: COMMON NORMALS: full ROM OTHER: 3+ edema is in the lower extremity bilaterally Neuro: SENSORIUM/ORIENTATION: Yes alert MOTOR EXAM: No Abnormal motor strength present and Other motor observations present (no focal motor deficits) Psych: COMMON NORMALS: speech normal SPEECH: Yes normal speech MOOD & AFFECT: Yes euthymic mood Course Vital Signs: Vital signs: Vital Signs Temperature 98.1 F 01/30/22 12:28 Pulse Rate 78 01/30/22 12:28 Respiratory Rate 16 01/30/22 12:28 Blood Pressure 179/78 01/30/22 12:28 Pulse Oximetry 88 L 01/30/22 12:28 Oxygen Delivery Me thod 01/30/22 12:28 MDM - General Adult Medical Decision Making 76-year-old male with a history of COPD, diabetes, hypertension hyperlipidemia, CHF presenting to the emergency room for volume overload and CHF exacerbation. Physical exam, patient is noted be satting at 91 to 94% on 4 L of oxygen. Patient is noted to have fine crackles throughout the lung field. 3+ edema in the lower extremity, mild abd distention. Findings are consistent with CHF exacerbation. Patient has proBNP is 752. Patient received 80 mg of Lasix. He will be admitted to hospital for IV diuresis given concerns of CHF exacerbation with increased oxygen demand. Patient has no signs of respiratory distress. Disposition: admission Lab Data : 01/30/22 16:20 01/30/22 16:20 Radiology Impressions Chest X-Ray 01/30/22 13:04 IMPRESSION: 1. Mild cardiac enlargement with mild pulmonary vascular congestion. Laboratory Results WBC 9.4 10^3/uL (4.0-10.0) 01/30/22 16:20 RBC 4.52 10^6/uL (4.1-5.3) 01/30/22 16:20 Hgb 11.3 g/dL (11.7-16.6) L 01/30/22 16:20 Hct 42.9 % (42.0-52.0) 01/30/22 16:20 MCV 94.9 fl (80-94) H 01/30/22 16:20 MCH 25.0 pg (28.0-34.0) L 01/30/22 16:20 MCHC 26.3 g/dL (30.0-36.0) L 01/30/22 16:20 RDW 15.4 % (12.1-15.1) H 01/30/22 16:20 Plt Count 229 10^3/cmm (130-400) 01/30/22 16:20 MPV 10.6 fL (7.4-10.4) H 01/30/22 16:20 Neut % (Auto) 73.3 % 01/30/22 16:20 Lymph % (Auto) 14.5 % 01/30/22 16:20 [place] % (Auto) 8.8 % 01/30/22 16:20 Eos % (Auto) 2.1 % 01/30/22 16:20 Baso % (Auto) 0.7 % 01/30/22 16:20 Neut # (Auto) 6.86 10^3/uL (1.8-7.7) 01/30/22 16:20 Lymph # (Auto) 1.4 10^3/uL (0.8-4.8) 01/30/22 16:20 [place] # (Auto) 0.8 10^3/uL (0.2-0.9) 01/30/22 16:20 Eos # (Auto) 0.2 10^3/uL (0.0-0.8) 01/30/22 16:20 Baso # (Auto) 0.1 10^3/uL (0.0-0.1) 01/30/22 16:20 Nucleated RBC % (auto) 0 % 01/30/22 16:20 Nucleated RBCs # 0.0 /100WBC 01/30/22 16:20 Sodium 144 mmol/L (136-145) 01/30/22 16:20 Potassium 4.2 mmol/L (3.5-5.1) 01/30/22 16:20 Chloride 98 mmol/L (98-107) 01/30/22 16:20 Carbon Dioxide 39 mmol/L (22-29) H 01/30/22 16:20 Anion Gap 11.2 (5-19) 01/30/22 16:20 BUN 20 mg/dL (8-23) 01/30/22 16:20 Creatinine 1.0 mg/dL (0.7-1.2) 01/30/22 16:20 GFR Calculation Not Reportable 01/30/22 16:20 Glucose 123 mg/dL (65-115) H 01/30/22 16:20 Calculated Osmolality 302 mOsm/kg (285-295) H 01/30/22 16:20 Calcium 9.4 mg/dL (8.5-10.5) 01/30/22 16:20 Total Bilirubin 0.4 mg/dL (0.15-1.2) 01/30/22 16:20 AST 14 U/L (0-40) 01/30/22 16:20 ALT 10 U/L (0-41) 01/30/22 16:20 Alkaline Phosphatase 75 IU/L (40-130) 01/30/22 16:20 Troponin T Baseline 19 ng/L (0-15) H 01/30/22 16:20 Troponin T 120 Minute 19.01 ng/L (0-15) H 01/30/22 16:20 Delta Troponin T 0.01 ABS# (0-10) 01/30/22 16:20 NT-Pro-B Natriuret Pep 752 pg/mL (0-450) H 01/30/22 16:20 Total Protein 6.8 g/dL (6.6-8.7) 01/30/22 16:20 Albumin 3.8 g/dL (3.5-5.2) 01/30/22 16:20 Globulin 3.0 g/dL (1.3-4.6) 01/30/22 16:20 Imaging Data Other Imaging: Radiologist's impression: [facility] [address] [place] [address] XRay Report Signed Patient: Clint Quevedo Unit #: [id number] : 1945 Age/Sex: 76 / M ADM Date: 01/30/22 Loc: ER Room/Bed: Attending Dr: Ordering Provider/Ordering MD: Queenie Westbrook Date of Service: 01/30/22 Procedure(s): XR chest 1V portable [id number] Accession Number(s): [id number] Report Number: [id number] WS: [id number] Exam: XR chest 1V portable [id number] Date/Time of Exam: 01/30/2022 1:09 PM Reason For Exam: fluid retention Comparison 09/10/2021. The lungs are fully expanded. No acute infiltrates or pleural effusions are seen. Mild cardiac enlargement with pulmonary vascular congestion. Regional bony elements are intact. Visualized mediastinal silhouette is normal in contour. XR/XR chest 1V portable [id number] IMPRESSION: 1. Mild cardiac enlargement with mild pulmonary vascular congestion. ? Dictated By: David Cook DO Signed By: David Cook DO Signed Date/Time: 01/30/22 1317 DD/ 1315 Discharge Plan Discharge Patient Disposition: Admitted As Inpatient Clinical Impression: CHF exacerbation, Hypoxemia, Volume overload Condition: Stable Coding Level of Care Code ED Spider Assembler for Umesh Mercado
[2022-01-30 22:44] VITALS: BP 143/115; PULSE 86; RESP 22; O2SAT 96
[2022-01-30] MEDS: FUROsemide 10 mg/mL SDV 10mL 80 MG IVP (23:45)
[2022-01-31] VITALS (15 sets, daily range): BP systolic 116–167; BP diastolic 52–103; PULSE 63–105; RESP 16–23; TEMP 36.6–36.8; O2SAT 92–97
[2022-01-31 00:15] LABS: SARS Covid-2 Antigen Negative (Negative)
--- NOTE | 2022-01-31 04:21 | P.HP_ITS ---
Providers/Chief Complaint Admitting Physician: Smiley Sams MD Primary Care Provider: Shukri Corral DO Chief Complaint: Reevaluated History of Present Illness Clint Quevedo is a 76 year old male with morbid obesity, sleep apnea, intolerant of CPAP due to noselbleed presents to the hospital today with 2 to 3 weeks of worsening dyspnea and increasing lower extremity edema. Patient reports he has been taking Lasix 20 mg p.o. daily without any significant relief in symptoms. His his baseline oxygen requirement is at 2.5 L/min, now requiring supplemental O2 at 5 L/min. Patient was admitted for CHF exacerbation here in November 2021 at which time he had a stress test which was abnormal. He underwent coronary angiography and did not have any lesions that required intervention. He endorses dietary noncompliance. He has gained 20 pounds since he was last in the hospital. His other comorbidities include atrial fibrillation for which he is on metoprolol and Eliquis. Review of Systems General: Reports: 10 or more systems reviewed and unremarkable except in HPI and below Const: Denies: fever(s), chills or body aches Eyes: Denies: change in vision, blurry vision or photophobia ENMT: Reports: hoarseness; Denies: throat pain, enlarged tonsils, odynophagia or nasal congestion Card: Denies: chest pain, palpitations, irregular heart rhythm, edema, swelling of feet/ankles, lightheadedness, pre-syncope, dyspnea on exertion or orthopnea Resp: Reports: dyspnea; Denies: productive cough, non-productive cough, wheezing, stridor, pain on inspiration, change in phlegm color, hemoptysis or chest congestion GI: Denies: abdominal pain, nausea, vomiting, hematemesis, coffee ground emesis, dysphagia, heartburn, diarrhea, constipation, GI cramping, change in stool character, hematochezia or melena : Denies: flank pain, dysuria, urinary frequency, urinary urgency, urinary hesitancy or hematuria Musc: Denies: neck pain, back pain, extremity pain, joint swelling, joint warmth or deformity Neuro: Denies: headache(s), numbness in extremities, weakness in extremities, sensory changes, difficulty walking, frequent falls, dizziness, vertigo, behavioral changes, Slurred speech present or seizure-like activity Psych: Denies: anxiety, depression, suicidal ideation or homicidal ideation Endo: Denies: polyuria, polydipsia, tired all the time, cold intolerance or hot flashes Kali/Lymph: Denies: easy bruising or easy bleeding Medications/Allergies Home Medications Medication Instructions Recorded Confirmed Last Taken Type furosemide 20 mg tablet 20 mg PO QAM PRN edema #5 tabs 09/10/21 01/31/22 12/29/20 Rx albuterol sulfate 90 mcg/actuation 2 puff inhalation QID PRN 11/05/21 01/31/22 12/04/21 06:00 History aerosol inhaler Shortness Of Breath ferrous sulfate 325 mg (65 mg 325 mg PO DAILY 11/05/21 01/31/22 11/05/21 History iron) tablet finasteride 5 mg tablet 5 mg PO DAILY 11/05/21 01/31/22 12/02/21 History fluticasone 250 mcg-salmeterol 50 1 inh inhalation BID 11/05/21 01/31/22 Unknown History mcg/dose blistr powdr for inhalation (Advair Diskus) metformin 1,000 mg tablet 500 mg PO DAILY 11/05/21 01/31/22 11/30/21 06:00 History metoprolol tartrate 100 mg tablet 50 mg PO BID 11/05/21 01/31/22 12/02/21 History nystatin 100,000 unit/gram topical 1 applic topical TID PRN Rash 11/05/21 01/31/22 12/03/21 History cream pantoprazole 40 mg tablet,delayed 40 mg PO DAILY 11/05/21 01/31/22 12/02/21 History release tamsulosin 0.4 mg capsule 0.8 mg PO DAILY 11/05/21 01/31/22 12/02/21 History apixaban 5 mg tablet (Eliquis) 5 mg PO BID #180 tabs 11/11/21 01/31/22 Unknown Rx empagliflozin 10 mg tablet 10 mg PO DAILY #90 tabs 11/11/21 01/31/22 12/29/20 Rx rosuvastatin 10 mg tablet 10 mg PO DAILY #90 tabs 11/11/21 01/31/22 12/02/21 Rx isosorbide mononitrate 30 mg 30 mg PO DAILY #30 tabs 12/04/21 01/31/22 Unknown Rx tablet,extended release 24 hr Allergies Allergy/AdvReac Type Severity Reaction Status Date / Time adhesive Allergy Intermediate Unknown Verified 01/02/22 10:00 PFSH Acute PFSH: Medical History Anticoagulation adequate with anticoagulant therapy Avascular necrosis of femoral head Benign essential hypertension with target blood pressure below 140/90 BPH (benign prostatic hyperplasia) COPD (chronic obstructive pulmonary disease) Diabetes Diabetes 1.5, managed as type 2 Dyslipidemia Hypertension Obesity Type 2 diabetes mellitus Surgical History History of cholecystectomy Family History Father CAD (coronary artery disease) Mother Perforated viscus Social History Smoking and tobacco status: former smoker (quit 1997) Vitals/I&O/Wt Last Vital Signs Temp 98.1 F 01/31/22 02:12 Pulse 79 01/31/22 02:12 Resp 23 H 01/31/22 02:12 BP 163/103 01/31/22 02:12 Pulse Ox 94 01/31/22 02:12 O2 Del Method 01/31/22 01:43 O2 Flow Rate 5 01/31/22 00:30 Weight last 48 hrs Weight 155.129 kg Physical Exam Narrative: General: Awake alert and oriented x3, morbidly obese male reclining in bed. HEENT: PERRLA, pupils bilaterally equal and reactive, pallors not present Chest: Bilateral coarse crackles to auscultation CVS: S1-S2 regular, no murmurs, no tachycardia, no gallops, no rubs Abdomen: Soft, nontender, no organomegaly, bowel sounds present Neuro: No focal deficits, no facial deformity, AO x3, power 5/5 in all limbs Extremities: 3+ pitting edema bilateral lower extremities Data : 01/30/22 16:20 01/30/22 16:20 Other Labs: Radiology Impressions Chest X-Ray 01/30/22 13:04 IMPRESSION: 1. Mild cardiac enlargement with mild pulmonary vascular congestion. Laboratory Results WBC 9.4 10^3/uL (4.0-10.0) 01/30/22 16:20 RBC 4.52 10^6/uL (4.1-5.3) 01/30/22 16:20 Hgb 11.3 g/dL (11.7-16.6) L 01/30/22 16:20 Hct 42.9 % (42.0-52.0) 01/30/22 16:20 MCV 94.9 fl (80-94) H 01/30/22 16:20 MCH 25.0 pg (28.0-34.0) L 01/30/22 16:20 MCHC 26.3 g/dL (30.0-36.0) L 01/30/22 16:20 RDW 15.4 % (12.1-15.1) H 01/30/22 16:20 Plt Count 229 10^3/cmm (130-400) 01/30/22 16:20 MPV 10.6 fL (7.4-10.4) H 01/30/22 16:20 Neut % (Auto) 73.3 % 01/30/22 16:20 Lymph % (Auto) 14.5 % 01/30/22 16:20 [place] % (Auto) 8.8 % 01/30/22 16:20 Eos % (Auto) 2.1 % 01/30/22 16:20 Baso % (Auto) 0.7 % 01/30/22 16:20 Neut # (Auto) 6.86 10^3/uL (1.8-7.7) 01/30/22 16:20 Lymph # (Auto) 1.4 10^3/uL (0.8-4.8) 01/30/22 16:20 [place] # (Auto) 0.8 10^3/uL (0.2-0.9) 01/30/22 16:20 Eos # (Auto) 0.2 10^3/uL (0.0-0.8) 01/30/22 16:20 Baso # (Auto) 0.1 10^3/uL (0.0-0.1) 01/30/22 16:20 Nucleated RBC % (auto) 0 % 01/30/22 16:20 Nucleated RBCs # 0.0 /100WBC 01/30/22 16:20 Sodium 144 mmol/L (136-145) 01/30/22 16:20 Potassium 4.2 mmol/L (3.5-5.1) 01/30/22 16:20 Chloride 98 mmol/L (98-107) 01/30/22 16:20 Carbon Dioxide 39 mmol/L (22-29) H 01/30/22 16:20 Anion Gap 11.2 (5-19) 01/30/22 16:20 BUN 20 mg/dL (8-23) 01/30/22 16:20 Creatinine 1.0 mg/dL (0.7-1.2) 01/30/22 16:20 GFR Calculation Not Reportable 01/30/22 16:20 Glucose 123 mg/dL (65-115) H 01/30/22 16:20 Calculated Osmolality 302 mOsm/kg (285-295) H 01/30/22 16:20 Calcium 9.4 mg/dL (8.5-10.5) 01/30/22 16:20 Total Bilirubin 0.4 mg/dL (0.15-1.2) 01/30/22 16:20 AST 14 U/L (0-40) 01/30/22 16:20 ALT 10 U/L (0-41) 01/30/22 16:20 Alkaline Phosphatase 75 IU/L (40-130) 01/30/22 16:20 Troponin T Baseline 19 ng/L (0-15) H 01/30/22 16:20 Troponin T 120 Minute Cancelled 01/30/22 16:20 Delta Troponin T Cancelled 01/30/22 16:20 Troponin T Hi Sens 6Hr 22.00 ng/L (0-15) H 01/30/22 23:33 Troponin T Hi Sens 6Hr Delta 3.00 ng/L (0-12) 01/30/22 23:33 NT-Pro-B Natriuret Pep 752 pg/mL (0-450) H 01/30/22 16:20 Total Protein 6.8 g/dL (6.6-8.7) 01/30/22 16:20 Albumin 3.8 g/dL (3.5-5.2) 01/30/22 16:20 Globulin 3.0 g/dL (1.3-4.6) 01/30/22 16:20 SARS-CoV-2 Ag (Rapid) Negative (Negative) 01/30/22 23:45 A&P Assessment and plan (1) CHF exacerbation: Admit to CSU Patient presenting today with acute on chronic preserved ejection fraction heart failure. He has gained 20 pounds recently in the past 3 to 4 weeks and spite of taking prescribed dose of Lasix. lasix 60mg ivp q12h moniotr I/O , renal function fluid restriction 1200 cc/d Status: Acute (2) Hypoxemia: Status: Acute Plan A fib: rate controleld currently . continue metoprolol ad eliquis Continue antiypertensives Attestations Medical Necessity Statement*: >2midnight admission anticipated for iv diuresis, management of CHF exacerbation with worsened hypoxia Coding Level of Care Code Acute Silo Operator for Umesh Mercado Diagnoses CHF exacerbation I50.9 Hypoxemia R09.02
[2022-01-31] MEDS: FUROsemide 10 mg/mL SDV 10mL 60 MG IVP ×2 (05:21→18:36)
[2022-01-31 06:19] LABS: Glucose Point of Care 138 mg/dL (70-110)
[2022-01-31] MEDS: ipratropium-albuterol 3 mL Neb INHALATION ×3 (08:13→22:52)
[2022-01-31] MEDS: finasteride 5 mg Tablet PO (09:10)
[2022-01-31] MEDS: tamsulosin 0.4 mg Capsule 0.8 MG PO (09:11)
[2022-01-31] MEDS: metoprolol tartrate 50 mg Tablet PO ×2 (09:11→18:35)
[2022-01-31] MEDS: atorvastatin 40 mg Tablet PO (09:11)
[2022-01-31] MEDS: apixaban 5 mg Tablet PO ×2 (09:11→18:36)
[2022-01-31] MEDS: pantoprazole DR 40 mg Tablet PO (09:11)
[2022-01-31] MEDS: isosorbide mononitrate ER 30 mg Tablet PO (09:11)
--- NOTE | 2022-01-31 09:43 | PC.CHAP ---
Pastoral Care Encounter/Spiritual Assessment Type of Contact [] Declined briquette machine operator visit [] Patient/Family/Request visit [] Outpatient visit [] Follow-up visit [] Physician referral [] Code/Alert x[] Routine visit [] Staff referral [] Actively dying [] Patient sleeping [] Family support [] [] Out of room [] Palliative care [] [] Receiving care in room [] Pre-surgical visit [] Trauma [] Long length of stay [] ICU visit [] Other: Relational/Emotional Strength [x] Patient feels connected with others/family/visitors/staff [] Distress [] Loneliness/isolation [] Abandonment Spirituality of Patient [x] Person of Disha [x] Attends Hinduism of their Disha [x] Believes in Prayer [] Reads Bible or Buddhist materials [] There are Spiritual issues to be addressed Petrology Teacher Interventions [x] Prayer [x] Active listening [x] Non-anxious presence [x] Spiritual/emotional support [] Crisis/trauma care [x] Spiritual counseling [] Bereavement support [] Provided bereavement packet [] Provided Bible/devotional materials [] Provided toy/stuffed animal, coloring book to patient or family member [] Provided Communion [] Anointing/[place] [] Salvation [x] Completed spiritual assessment [] Other: Impact on Illness or Injury [] Angry [] Fearful [] Anxious [] Often cries [] Exhaustion [] Unable to work [] Unable to attend roman catholic [] Unable to walk/stand [] Unable to read [] Unable to drive [] Unable to eat/drink [] Unable to sleep [] Unable to be with family [] Patient intubated [] Other: Summary Time spent with patient 10 min
--- NOTE | 2022-01-31 10:25 | PM.MISC ---
Miscellaneous Note Note: Patient was seen and examined this morning, patient wanted to go back in the bed, currently he is on 4 L nasal cannula No acute shortness of breath or conversational dyspnea Clinically looks fluid overloaded Pitting edema Awake and alert Crusting eyes noted Abdomen distended nontender S1, S2 Cardiac wheezing positive Assessment and plan Preserved ejection fraction heart failure exacerbation Continue IV diuretics BiPAP Patient seems to have sleep apnea as well Morbid obesity Monitor for contraction alkalosis Will place Au catheter for accurate input and output measurement A. fib without RVR Continue Eliquis and metoprolol Blood pressure is stable Wean oxygen to his home requirement Limited resuscitation patient does not want intubation however okay with chest compressions defibrillation and a pacemaker
[2022-02-01] VITALS (12 sets, daily range): BP systolic 103–150; BP diastolic 53–73; PULSE 60–88; RESP 17–21; TEMP 36.4–36.8; O2SAT 94–99
[2022-02-01] MEDS: FUROsemide 10 mg/mL SDV 10mL 60 MG IVP (04:19)
[2022-02-01 06:43] LABS: Basophils # 0.1 10^3/uL (0.0-0.1); Basophils % 0.5 %; Eosinophils # 0.3 10^3/uL (0.0-0.8); Eosinophils % 2.9 %; Hematocrit 40.4 % (42.0-52.0); Hemoglobin 10.8 g/dL (11.7-16.6); Lymphocytes # 1.2 10^3/uL (0.8-4.8); Lymphocytes % 10.5 %; Mean Corpuscular HGB Conc 26.7 g/dL (30.0-36.0); Mean Corpuscular Volume 93.5 fl (80-94); Monocytes # 1.2 10^3/uL (0.2-0.9); Monocytes % 10.1 %; Neutrophils # 8.73 10^3/uL (1.8-7.7); Neutrophils % 75.6 %; Nucleated Red Blood Cells % 0 %; Platelet Count 240 10^3/cmm (130-400); Red Blood Count 4.32 10^6/uL (4.1-5.3); Red Cell Distribution Width 15.7 % (12.1-15.1); White Blood Count 11.6 10^3/uL (4.0-10.0)
[2022-02-01 07:11] LABS: Alanine Aminotransferase 9 U/L (0-41); Albumin Level 3.6 g/dL (3.5-5.2); Alkaline Phosphatase 67 IU/L (40-130); Aspartate Amino Transferase 15 U/L (0-40); Blood Urea Nitrogen 23 mg/dL (8-23); Calcium 9.3 mg/dL (8.5-10.5); Chloride 94 mmol/L (98-107); Globulin 3.1 g/dL (1.3-4.6); Glucose 138 mg/dL (65-115); Magnesium 2.1 mg/dL (1.7-2.3); Osmolality Calculated 308 mOsm/kg (285-295); Potassium 3.5 mmol/L (3.5-5.1); Sodium 146 mmol/L (136-145); Total Bilirubin 0.4 mg/dL (0.15-1.2); Total Protein 6.7 g/dL (6.6-8.7)
[2022-02-01 07:16] LABS: Anion Gap 5.5 (5-19)
[2022-02-01 07:38] LABS: Carbon Dioxide 50 mmol/L (22-29)
[2022-02-01] MEDS: ipratropium-albuterol 3 mL Neb INHALATION ×3 (08:39→20:47)
[2022-02-01] MEDS: isosorbide mononitrate ER 30 mg Tablet PO (09:34)
[2022-02-01] MEDS: atorvastatin 40 mg Tablet PO (09:34)
[2022-02-01] MEDS: tamsulosin 0.4 mg Capsule 0.8 MG PO (09:34)
[2022-02-01] MEDS: finasteride 5 mg Tablet PO (09:34)
[2022-02-01] MEDS: metoprolol tartrate 50 mg Tablet PO ×2 (09:34→17:46)
[2022-02-01] MEDS: pantoprazole DR 40 mg Tablet PO (09:34)
[2022-02-01] MEDS: apixaban 5 mg Tablet PO ×2 (09:35→17:46)
[2022-02-01] MEDS: acetaZOLAMIDE 250 mg Tablet PO (09:37)
--- NOTE | 2022-02-01 11:18 | P.PN_ITS ---
Subjective Subjective: Patient was in a recliner Currently on 3 L nasal cannula Endorsing feeling better Adequate urine output Contraction alkalosis Diuretics discontinued I will give acetazolamide Might be able to discharge tomorrow if stable Vitals/I&O/Wt Last Vital Signs Temp 97.6 F 02/01/22 04:00 Pulse 82 02/01/22 08:50 Resp 21 H 02/01/22 08:39 BP 146/57 02/01/22 08:00 Pulse Ox 97 02/01/22 08:39 O2 Del Method 02/01/22 08:39 O2 Flow Rate 3 02/01/22 04:00 FiO2 32 02/01/22 08:39 01/31/22 02/01/22 02/01/22 22:59 06:59 14:59 Intake Total 240 / 840 200 / 1040 Output Total 1700 / 1700 1050 / 1050 Balance 240 / 840 -1500 / -660 -1050 / -1050 Weight last 48 hrs Weight 155.129 kg Physical Exam Narrative: Signs of fluid overload improving Sitting in a recliner Currently on 3 L Wheezing has improved significantly however still present Abdomen is distended nontender Bilateral lower extremity Renasys dermatitis, skin wrinkling noted, edema positive however less as compared to yesterday Awake and alert Nonfocal neuro exam Urinary Catheter Management: Au: Cath Placed During This Visit: yes Reason for Continuing Indwelling Catheter: Other Urinary Catheter Date of Insertion: 01/31/22 Data : 02/01/22 05:50 02/01/22 05:50 A&P Assessment and plan (1) CHF exacerbation: Status: Acute (2) Hypoxemia: Status: Acute (3) Volume overload: Status: Acute (4) Diabetes 1.5, managed as type 2: Status: Acute (5) Anticoagulation adequate with anticoagulant therapy: Status: Acute (6) Hypertension: Status: Acute (7) Acute kidney injury superimposed on chronic kidney disease: Status: Acute (8) Acute kidney injury: Status: Acute (9) Diastolic CHF, acute: Status: Acute Plan Acute diastolic congestive heart exacerbation Currently patient is in contraction alkalosis Stop diuretics Would use acetazolamide Clinically patient is showing signs of overdiuresis with skin wrinkling It is very hard to assess his volume status because of his chronic stasis however clinically patient is improving Ox requirement is at 3 L, Acute on chronic hypoxia Currently he is on 3 L, at home uses 2.5 L Secondary to fluid overload, cardiac wheezing still present however improved AYamel darling also has history of left bundle branch block, heart rate is better and around 80s, continue Eliquis and metoprolol Acute on chronic kidney disease related to overdiuresis Cut back on diuretics Adequate urine output Patient does not want intubation agreeable for chest compression defibrillation I did updated her daughter yesterday I was not able to get in touch with his Possible discharge tomorrow if stable Attestations Medical Necessity Statement*: Continue medical management Time Spent in Patient Care: 30 Coding Level of Care Code Acute Beef Specialist for g Fwd Diagnoses CHF exacerbation I50.9 Hypoxemia R09.02 Volume overload E87.70 Diabetes 1.5, managed as type 2 E13.9 Anticoagulation adequate with anticoagulant therapy Z79.01 Hypertension I10 Acute kidney injury superimposed on chronic kidney disease N17.9; N18.9 Acute kidney injury N17.9 Diastolic CHF, acute I50.31
[2022-02-02 03:20] VITALS: PULSE 66; RESP 16; O2SAT 98
[2022-02-02] MEDS: ipratropium-albuterol 3 mL Neb INHALATION ×2 (03:20→08:22)
[2022-02-02 04:00] VITALS: BP 145/65; PULSE 71; RESP 18; TEMP 36.6; O2SAT 96
[2022-02-02 04:53] LABS: Anion Gap 9.9 (5-19); Blood Urea Nitrogen 27 mg/dL (8-23); Calcium 9.3 mg/dL (8.5-10.5); Chloride 93 mmol/L (98-107); Glucose 139 mg/dL (65-115); Osmolality Calculated 301 mOsm/kg (285-295); Potassium 3.9 mmol/L (3.5-5.1); Sodium 142 mmol/L (136-145)
[2022-02-02 05:18] LABS: Carbon Dioxide 43 mmol/L (22-29)
[2022-02-02 05:49] VITALS: PULSE 75
[2022-02-02 07:12] VITALS: BP 130/72; PULSE 83; RESP 17; O2SAT 95
[2022-02-02 08:22] VITALS: PULSE 86; RESP 18; O2SAT 98
--- NOTE | 2022-02-02 08:42 | PC.SOCIAL ---
IMM signed IMM given to patient to sign, copy given to patient and copy placed in chart.
[2022-02-02] MEDS: isosorbide mononitrate ER 30 mg Tablet PO (08:56)
[2022-02-02] MEDS: pantoprazole DR 40 mg Tablet PO (08:56)
[2022-02-02] MEDS: tamsulosin 0.4 mg Capsule 0.8 MG PO (08:56)
[2022-02-02] MEDS: metoprolol tartrate 50 mg Tablet PO (08:57)
[2022-02-02] MEDS: apixaban 5 mg Tablet PO (08:57)
[2022-02-02] MEDS: atorvastatin 40 mg Tablet PO (08:57)
[2022-02-02] MEDS: finasteride 5 mg Tablet PO (08:57)
--- NOTE | 2022-02-02 09:27 | PM.DCS ---
Discharge Providers Date of Admission: 01/30/22 22:11 Date of Discharge: February 02, 2022 Attending Provider at Admission: Smiley Sams MD Attending Provider at Discharge: Ranjan Gonzales MD Primary Care Provider: Shukri Corral DO Diagnoses at Discharge Discharge Diagnosis (1) CHF exacerbation: Status: Acute (2) Hypoxemia: Status: Acute (3) Volume overload: Status: Acute (4) Diabetes 1.5, managed as type 2: Status: Acute (5) Anticoagulation adequate with anticoagulant therapy: Status: Acute (6) Hypertension: Status: Acute (7) Acute kidney injury superimposed on chronic kidney disease: Status: Acute (8) Acute kidney injury: Status: Acute (9) Diastolic CHF, acute: Status: Acute Reason for Visit Reason for Visit: Reevaluated Hospital Course Hospital Course 76-year-old male with a history of vascular congestive heart failure, sleep apnea, uses 2.5 L of oxygen at baseline, presented to the hospital with chief complaint of worsening shortness of breath. At baseline he uses a cane for ambulation, he also has a walker which he uses on as needed basis. In the hospital he was diuresed aggressively with IV diuretics. He went to contraction alkalosis for which acetazolamide was prescribed. His second dose of acetazolamide was given on 02/02. Patient will go home on 3 L of oxygen, I have notified his to increase the dose of Lasix to at least 40 mg daily and increase it up to 60 mg on as-needed basis. I will give him a prescription to check his kidney function and contraction alkalosis after 3 days. Family does not want him to go to rehab at this point., He also has home health services. Limited resuscitation, patient and family agreed for chest compressions defibrillation however they were against endotracheal intubation. Physical Exam Narrative: Sitting in a wheelchair Currently on 3 L Wheezing has improved Abdomen is distended nontender Bilateral lower extremity w stasis dermatitis, skin wrinkling noted, edema positive however less as compared to yesterday Awake and alert Nonfocal neuro exam Urinary Catheter Management: Au: Cath Placed During This Visit: yes Reason for Continuing Indwelling Catheter: Other Urinary Catheter Date of Insertion: 01/31/22 Discharge Data Studies Completed and Pending Completed Studies During Hospitalization Category Date Time Status XR chest 1V portable [id number] Urgent Exams 01/30/22 13:04 Completed Radiology Impressions Chest X-Ray 01/30/22 13:04 IMPRESSION: 1. Mild cardiac enlargement with mild pulmonary vascular congestion. Laboratory Results WBC 11.6 10^3/uL (4.0-10.0) H 02/01/22 05:50 RBC 4.32 10^6/uL (4.1-5.3) 02/01/22 05:50 Hgb 10.8 g/dL (11.7-16.6) L 02/01/22 05:50 Hct 40.4 % (42.0-52.0) L 02/01/22 05:50 MCV 93.5 fl (80-94) 02/01/22 05:50 MCH 25.0 pg (28.0-34.0) L 02/01/22 05:50 MCHC 26.7 g/dL (30.0-36.0) L 02/01/22 05:50 RDW 15.7 % (12.1-15.1) H 02/01/22 05:50 Plt Count 240 10^3/cmm (130-400) 02/01/22 05:50 MPV 10.0 fL (7.4-10.4) 02/01/22 05:50 Neut % (Auto) 75.6 % 02/01/22 05:50 Lymph % (Auto) 10.5 % 02/01/22 05:50 [place] % (Auto) 10.1 % 02/01/22 05:50 Eos % (Auto) 2.9 % 02/01/22 05:50 Baso % (Auto) 0.5 % 02/01/22 05:50 Neut # (Auto) 8.73 10^3/uL (1.8-7.7) H 02/01/22 05:50 Lymph # (Auto) 1.2 10^3/uL (0.8-4.8) 02/01/22 05:50 [place] # (Auto) 1.2 10^3/uL (0.2-0.9) H 02/01/22 05:50 Eos # (Auto) 0.3 10^3/uL (0.0-0.8) 02/01/22 05:50 Baso # (Auto) 0.1 10^3/uL (0.0-0.1) 02/01/22 05:50 Nucleated RBC % (auto) 0 % 02/01/22 05:50 Nucleated RBCs # 0.0 /100WBC 02/01/22 05:50 Sodium 142 mmol/L (136-145) 02/02/22 04:10 Potassium 3.9 mmol/L (3.5-5.1) 02/02/22 04:10 Chloride 93 mmol/L (98-107) L 02/02/22 04:10 Carbon Dioxide 43 mmol/L (22-29) H* 02/02/22 04:10 Anion Gap 9.9 (5-19) 02/02/22 04:10 BUN 27 mg/dL (8-23) H 02/02/22 04:10 Creatinine 1.3 mg/dL (0.7-1.2) H 02/02/22 04:10 GFR Calculation Not Reportable 02/02/22 04:10 Glucose 139 mg/dL (65-115) H 02/02/22 04:10 POC Glucose 138 mg/dL (70-110) H 01/31/22 06:10 Calculated Osmolality 301 mOsm/kg (285-295) H 02/02/22 04:10 Calcium 9.3 mg/dL (8.5-10.5) 02/02/22 04:10 Magnesium 2.1 mg/dL (1.7-2.3) 02/01/22 05:50 Total Bilirubin 0.4 mg/dL (0.15-1.2) 02/01/22 05:50 AST 15 U/L (0-40) 02/01/22 05:50 ALT 9 U/L (0-41) 02/01/22 05:50 Alkaline Phosphatase 67 IU/L (40-130) 02/01/22 05:50 Troponin T Baseline 19 ng/L (0-15) H 01/30/22 16:20 Troponin T 120 Minute Cancelled 01/30/22 16:20 Delta Troponin T Cancelled 01/30/22 16:20 Troponin T Hi Sens 6Hr 22.00 ng/L (0-15) H 01/30/22 23:33 Troponin T Hi Sens 6Hr Delta 3.00 ng/L (0-12) 01/30/22 23:33 NT-Pro-B Natriuret Pep 752 pg/mL (0-450) H 01/30/22 16:20 Total Protein 6.7 g/dL (6.6-8.7) 02/01/22 05:50 Albumin 3.6 g/dL (3.5-5.2) 02/01/22 05:50 Globulin 3.1 g/dL (1.3-4.6) 02/01/22 05:50 SARS-CoV-2 Ag (Rapid) Negative (Negative) 01/30/22 23:45 Vitals Last Vital Signs Temp 97.9 F 02/02/22 04:00 Pulse 86 02/02/22 08:22 Resp 18 02/02/22 08:22 BP 130/72 02/02/22 07:12 Pulse Ox 98 02/02/22 08:22 O2 Del Method 02/02/22 08:22 O2 Flow Rate 3 02/02/22 08:22 FiO2 32 02/01/22 08:39 Discharge Plan Discharge Patient Disposition: Home Condition: Stable Prescriptions: New potassium chloride 10 mEq tablet extended release 10 meq PO DAILY Qty: 30 0RF Continued isosorbide mononitrate 30 mg tablet extended release 24 hr 30 mg PO DAILY Qty: 30 5RF fluticasone propion-salmeterol [Advair Diskus] 250-50 mcg/dose Blister With Device 1 inh INHALATION BID metoprolol tartrate 100 mg Tablet 50 mg PO BID tamsulosin 0.4 mg Capsule 0.8 mg PO DAILY pantoprazole 40 mg Tablet,Delayed Release (Dr/Ec) 40 mg PO DAILY ferrous sulfate 325 mg (65 mg iron) Tablet 325 mg PO DAILY nystatin 100,000 unit/gram Cream 1 applic TOPICAL TID PRN (Reason: Rash) albuterol sulfate 90 mcg/actuation Hfa Aerosol Inhaler 2 puff INHALATION QID PRN (Reason: Shortness Of Breath) finasteride 5 mg Tablet 5 mg PO DAILY Eliquis 5 mg tablet 5 mg PO BID Qty: 180 0RF Hold Instructions: Resume on 12/05/21. rosuvastatin 10 mg Tablet 10 mg PO DAILY Qty: 90 0RF empagliflozin 10 mg tablet 10 mg PO DAILY Qty: 90 0RF Changed furosemide 20 mg tablet 40 mg PO DAILY PRN (Reason: edema) Qty: 60 3RF Discontinued metformin 1,000 mg Tablet 500 mg PO DAILY Hold Instructions: Resume on 12/07/21. Discharge Orders: Discharge Order (Routine); Ordered 02/02/22 Ordered By: Ranjan Gonzales Other Ambulatory Orders: Basic Metabolic Panel (Routine) Timeframe: 3 Days Facility: [facility] - Location: Lab - Main Lab Ordered By: Ranjan Gonzales Referrals: Shukri Corral DO [Primary Care Provider] - Discharge Diet: Cardiac Patient Instructions: Potassium Chloride (By mouth), Heart Failure (DC), Hypoxemia (DC), Opioid Safety Discharge Attestations Time Spent in Discharge Care*: less than 30 min Quality Metrics Clinical Quality Measures [ No reported AMI, CVA or VTE this stay] Coding Level of Care Code Acute Chg FW DC note Diagnoses CHF exacerbation I50.9 Hypoxemia R09.02 Volume overload E87.70 Diabetes 1.5, managed as type 2 E13.9 Anticoagulation adequate with anticoagulant therapy Z79.01 Hypertension I10 Acute kidney injury superimposed on chronic kidney disease N17.9; N18.9 Acute kidney injury N17.9 Diastolic CHF, acute I50.31
[2022-02-02 12:19] VITALS: PULSE 86; RESP 18; O2SAT 98
== END 2022-02-02 11:55 | disposition home health service (06) | DRG 291 ==
LOC: ER 22:03 → MEDSURG 01-31 02:11
PROVIDERS: Physician Assistant; Admitting Provider Student in an Organized Health Care Education/Training Program; Emergency Provider Emergency Medicine; PCP Emergency Medicine Emergency Medical Services; Visit Provider Internal Medicine
DX: I13.0 Hypertensive heart and chronic kidney disease with heart failure and stage 1 through stage 4 chronic kidney disease, or unspecified chronic kidney disease (principal); I50.33 Acute on chronic diastolic (congestive) heart failure; Z68.44 Body mass index [BMI] 60.0-69.9, adult; N17.9 Acute kidney failure, unspecified; E87.3 Alkalosis; N18.9 Chronic kidney disease, unspecified; E13.22 Other specified diabetes mellitus with diabetic chronic kidney disease; E66.01 Morbid (severe) obesity due to excess calories; G47.30 Sleep apnea, unspecified; N40.0 Benign prostatic hyperplasia without lower urinary tract symptoms; J44.9 Chronic obstructive pulmonary disease, unspecified; E78.5 Hyperlipidemia, unspecified; Z87.891 Personal history of nicotine dependence; I48.91 Unspecified atrial fibrillation; Z99.81 Dependence on supplemental oxygen; Z79.01 Long term (current) use of anticoagulants
CPT/HCPCS: 36415; 36416; 51702; 71045; 80048; 80053; 82962; 83735; 83880; 84484; 85025; 87426; 93005; 94640; 96374; 99285; J1940

== ENCOUNTER → 2022-04-14 12:04 | Outpatient (BNVA) | payer OTHER, SELFPAY | PROVIDERS: PCP Emergency Medicine Emergency Medical Services; Visit Provider Internal Medicine Cardiovascular Disease | DX: R06.02 Shortness of breath (principal); I48.91 Unspecified atrial fibrillation; I25.10 Atherosclerotic heart disease of native coronary artery without angina pectoris; R60.0 Localized edema; E66.9 Obesity, unspecified; Z68.43 Body mass index [BMI] 50.0-59.9, adult; I44.7 Left bundle-branch block, unspecified | CPT/HCPCS: 80048; 99214 ==

== ENCOUNTER → 2022-07-21 09:52 | Outpatient (BNVA) | payer OTHER, SELFPAY | PROVIDERS: PCP Emergency Medicine Emergency Medical Services; Visit Provider Podiatrist Foot & Ankle Surgery | DX: M20.41 Other hammer toe(s) (acquired), right foot (principal); M20.42 Other hammer toe(s) (acquired), left foot; R60.9 Edema, unspecified; L84 Corns and callosities; E11.9 Type 2 diabetes mellitus without complications; B35.1 Tinea unguium | CPT/HCPCS: 11056; 11721; 99204 ==

== ENCOUNTER → 2022-10-20 11:40 | Outpatient (BNVA) | payer OTHER, SELFPAY | PROVIDERS: PCP Emergency Medicine Emergency Medical Services; Visit Provider Internal Medicine Cardiovascular Disease | DX: I25.10 Atherosclerotic heart disease of native coronary artery without angina pectoris (principal); I48.91 Unspecified atrial fibrillation; E78.5 Hyperlipidemia, unspecified; I44.7 Left bundle-branch block, unspecified; E66.9 Obesity, unspecified; Z68.42 Body mass index [BMI] 45.0-49.9, adult; Z87.891 Personal history of nicotine dependence | CPT/HCPCS: 99214 ==

== ENCOUNTER → 2023-01-26 10:07 | Outpatient (BNVA) | payer OTHER, SELFPAY | PROVIDERS: PCP Emergency Medicine Emergency Medical Services; Visit Provider Podiatrist Foot & Ankle Surgery | DX: B35.1 Tinea unguium (principal); R60.9 Edema, unspecified; L84 Corns and callosities; E11.9 Type 2 diabetes mellitus without complications | CPT/HCPCS: 11721 ==

== ENCOUNTER → 2023-04-06 09:38 | Outpatient (BNVA) | payer OTHER, SELFPAY | PROVIDERS: PCP Emergency Medicine Emergency Medical Services; Visit Provider Podiatrist Foot & Ankle Surgery | DX: B35.1 Tinea unguium (principal); L84 Corns and callosities; B35.3 Tinea pedis; R60.9 Edema, unspecified; E11.69 Type 2 diabetes mellitus with other specified complication | CPT/HCPCS: 11056; 11721; 99213 ==

== ENCOUNTER → 2023-05-18 09:50 | Outpatient (BNVA) | payer OTHER, SELFPAY | PROVIDERS: PCP Emergency Medicine Emergency Medical Services; Visit Provider Internal Medicine Cardiovascular Disease | DX: I25.10 Atherosclerotic heart disease of native coronary artery without angina pectoris (principal); I48.91 Unspecified atrial fibrillation; Z79.01 Long term (current) use of anticoagulants; E78.5 Hyperlipidemia, unspecified; I44.7 Left bundle-branch block, unspecified; E66.9 Obesity, unspecified; Z68.42 Body mass index [BMI] 45.0-49.9, adult; Z87.891 Personal history of nicotine dependence | CPT/HCPCS: 99214 ==

== ENCOUNTER 2023-06-05 09:26 | Outpatient (CLI) | payer OTHER, SELFPAY ==
--- NOTE | 2023-06-05 10:30 | USCV_ITS ---
Clint Quevedo Age: 78 Gender: M : 1945 Exam Date: 06/05/2023 09:43 Ordering Phys: Vaibhav Hernandez MD ([email or web address]) Technologist: KRISTINE [place] [facility] [place]: EVAL FOR CAROTID STENOSIS Risk Factors: Previous Vascular Surgery: Right Brachial BP: / Left Brachial BP: / Right Left Velocity (cm/s) Spectral Plaque Velocity (cm/s) Spectral Plaque Syst/Diast Broadening Syst/Diast Broadening 140.70/12.30 Prox CCA 108.10/ 19.80 87.60/ 12.30 Mid CCA 102.50/ 17.60 76.10/ 11.00 Distal CCA 79.40 / 18.70 66.80/ 11.70 Prox ICA 41.90 / 9.30 52.00/ 10.10 Mid ICA 58.70 / 13.90 67.60/ 16.30 Distal ICA 45.20 / 10.70 104.70 ECA 86.00 0.48 ICA/CCA 0.54 Antegrade Vertebral Antegrade 43.50/ 12.40 cm/s 52.00/ 7.00 cm/s Tri Subclavian Tri 121.3 99.40 0 FINDINGS Minimal plaques at the bifurcations bilaterally Normal Doppler flow velocities and ratios No unstable plaques or lesions./ Anterior flow in the vertebral arteries bilaterally. CONCLUSIONS No significant obstructive lesions noted in the extracranial carotid system. No significant stenosis in the vertebral or proximal subclavian arteries, based on the above findings. Dr Vaibhav Hernandez MD [facility] (Electronically Signed) Final Date: 06 June 2023 12:56 S
== END 2023-06-05 09:27 | disposition home or self-care (01) ==
LOC: RAD 09:26
PROVIDERS: PCP Emergency Medicine Emergency Medical Services; Visit Provider Internal Medicine Cardiovascular Disease
DX: I77.9 Disorder of arteries and arterioles, unspecified (principal); I25.10 Atherosclerotic heart disease of native coronary artery without angina pectoris
CPT/HCPCS: 93880

== ENCOUNTER → 2023-06-08 08:38 | Outpatient (BNVA) | payer OTHER, SELFPAY | PROVIDERS: PCP Emergency Medicine Emergency Medical Services; Visit Provider Podiatrist Foot & Ankle Surgery | DX: B35.1 Tinea unguium (principal); R60.9 Edema, unspecified; L84 Corns and callosities; B35.3 Tinea pedis; E11.69 Type 2 diabetes mellitus with other specified complication | CPT/HCPCS: 11721 ==

== ENCOUNTER 2023-08-05 13:00 | Outpatient (RCR) | payer OTHER, SELFPAY | END 2023-08-05 23:59 | disposition home or self-care (01) | LOC: SPT 13:00 | PROVIDERS: PCP Emergency Medicine Emergency Medical Services; Visit Provider Emergency Medicine Emergency Medical Services | DX: M54.50 Low back pain, unspecified (principal) | CPT/HCPCS: 97161 ==

== ENCOUNTER → 2023-09-10 10:02 | Outpatient (BNVA) | payer OTHER, SELFPAY | PROVIDERS: PCP Emergency Medicine Emergency Medical Services; Referring Provider Emergency Medicine Emergency Medical Services; Visit Provider Physician Assistant | DX: M65.322 Trigger finger, left index finger | CPT/HCPCS: 73130; 99204 ==

== ENCOUNTER → 2023-09-14 12:17 | Outpatient (BNVA) | payer OTHER, SELFPAY | PROVIDERS: PCP Emergency Medicine Emergency Medical Services; Visit Provider Podiatrist Foot & Ankle Surgery | DX: B35.1 Tinea unguium (principal); R60.9 Edema, unspecified; L84 Corns and callosities; B35.3 Tinea pedis; E11.69 Type 2 diabetes mellitus with other specified complication | CPT/HCPCS: 11721 ==

== ENCOUNTER 2023-10-08 05:35 | Day surgery (SDC) | payer OTHER, SELFPAY ==
[2023-10-08] VITALS (7 sets, daily range): BP systolic 121–175; BP diastolic 47–89; PULSE 55–64; RESP 12–20; TEMP 36.2–36.7; O2SAT 94–98; BMI 51.3
--- NOTE | 2023-10-08 06:28 | ECG_ITS ---
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 Measurements Intervals [place] Rate: 55 P: 84 CA: 233 QRS: -48 QRSD: 157 T: 92 QT: 456 QTc: 437 Interpretive Statements SINUS BRADYCARDIA WITH SINUS ARRHYTHMIA WITH FIRST DEGREE AV BLOCK LEFT AXIS DEVIATION [QRS AXIS < -30] LEFT BUNDLE BRANCH BLOCK [120+ ms QRS DURATION, 80+ ms Q/S IN V1/V2, 85+ ms R IN I/aVL/V5/V6] Compared to ECG 01/30/2022 18:00:05 First degree AV block now present Sinus rhythm no longer present Electronically Signed On 10-09-2023 17:18:41 CDT by Vaibhav Hernandez M.D. [id number]
[2023-10-08 06:33] LABS: Glucose Point of Care 122 mg/dL (70-110)
[2023-10-08] MEDS: ketorolac 30 mg/mL INJ IVP (06:35)
[2023-10-08] MEDS: sodium chloride 0.9% 1,000 ML 30 ML IV (06:35)
[2023-10-08] MEDS: acetaminophen 1,000 MG/100 ML PIGGYBACK 400 MG IV (06:35)
--- NOTE | 2023-10-08 06:43 | ANES.PREANE2 ---
Pre-Anesthetic Assessment Height/Weight: Height 1.6 m Weight 131.542 kg Temp Pulse Resp BP Pulse Ox O2 Del Method 98.0 F 60 20 H 121/59 94 Room Air 10/08/23 06:10 10/08/23 06:10 10/08/23 06:10 10/08/23 06:10 10/08/23 06:10 10/08/23 06:10 Operation Date: 10/08/23 07:00 Proposed Procedures p Trigger Finger Release/LEFT INDEX FINGER TRIGGER RELEASE(Left) - Giovany Lauren, Familial anesthetic complications: None Was Beta Imelda taken within 24 hours: Yes Was Clonidine taken within 24 hours: N/A Last intake: Intake Last Liquid Date 10/07/23 Last Liquid Time 20:00 Last Solid Date 10/07/23 Last Solid Time 16:00 Social No alcohol and No tobacco Exam alert, oriented x 3, clear to auscultation bilaterally and regular rate & rhythm Airway Mallampati: Class III Dentition: chipped and other (very poor dentition) Pulmonary Sleep Apnea CV/HEM Atrial Fibrillation, Coronary Artery Disease (medically treated) and Congestive Heart Failure (hx CHF) LBBB GI Gastroesophageal Reflux Disease Metabolic Diabetes Mellitus and Morbid Obesity Anesthetic Plan ASA status: 4 Anesthesia: MAC Risk of > 500 ml blood loss (7ml/kg in children): No Medications/Allergies Home Medications Medication Instructions Recorded Confirmed Last Taken Type ferrous sulfate 325 mg (65 mg 325 mg PO DAILY 11/05/21 10/08/23 10/08/23 History iron) tablet finasteride 5 mg tablet 5 mg PO DAILY 11/05/21 10/08/23 10/08/23 History metoprolol tartrate 100 mg tablet 50 mg PO BID 11/05/21 10/08/23 10/08/23 History nystatin 100,000 unit/gram topical 1 applic topical TID PRN Rash 11/05/21 10/07/23 12/03/21 History cream pantoprazole 40 mg tablet,delayed 40 mg PO DAILY 11/05/21 10/08/23 10/08/23 History release tamsulosin 0.4 mg capsule 0.8 mg PO DAILY 11/05/21 10/07/23 10/07/23 History apixaban 5 mg tablet (Eliquis) 5 mg PO BID #180 tabs 11/11/21 10/07/23 10/05/23 Rx rosuvastatin 10 mg tablet 10 mg PO DAILY #90 tabs 11/11/21 10/07/23 10/07/23 Rx isosorbide mononitrate 30 mg 30 mg PO DAILY #30 tabs 12/04/21 10/08/23 10/08/23 Rx tablet,extended release 24 hr furosemide 20 mg tablet 40 mg (2 x 20 mg) PO DAILY PRN 02/02/22 10/07/23 10/07/23 Rx edema #60 tabs ammonium lactate 12 % topical cream 1 applic topical DAILY #385 grams 03/11/22 09/14/23 Unknown Rx clotrimazole-betamethasone 1 1 applic topical BID 4 weeks #15 04/06/23 09/14/23 Unknown Rx %-0.05 % topical cream grams Allergies Allergy/AdvReac Type Severity Reaction Status Date / Time adhesive Allergy Intermediate Unknown Verified 10/07/23 12:49 Current Medications Generic Name Dose Route Start Last Admin Trade Name Freq PRN Reason Stop Dose Admin Sodium Chloride 1,000 mls @ 30 mls/hr 10/08/23 06:00 10/08/23 06:35 Sodium Chloride 0.9% IV 10/09/23 05:59 30 mls/hr .Q24H AVEL Administration PFSH Anesthesia Medical History Hx of skin cancer, basal cell Hx of carbon monoxide poisoning Volume overload Hypoxemia CHF exacerbation Diabetes 1.5, managed as type 2 Anticoagulation adequate with anticoagulant therapy Acute kidney injury superimposed on chronic kidney disease Dyslipidemia Type 2 diabetes mellitus Benign essential hypertension with target blood pressure below 140/90 Acute kidney injury Diastolic CHF, acute BPH (benign prostatic hyperplasia) Avascular necrosis of femoral head Obesity COPD (chronic obstructive pulmonary disease) Hypertension Diabetes Surgical History Hx of arthroscopic knee surgery bilateral Hx of umbilical hernia repair History of hip surgery x 2 on right History of cholecystectomy Family History Father CAD (coronary artery disease) Mother Perforated viscus Sister CAD (coronary artery disease) Cancer Diabetes Lung disease Brother CAD (coronary artery disease) Denies family history of Clotting disorder Dementia Chronic kidney disease (CKD) Suicide Anesthesia complication Bleeding disorder Stroke Social History Smoking and tobacco/nicotine status: former use of tobacco/nicotine Alcohol intake: never Substance/Drug Use: never Data Anesthesia Cardiac Studies: Echocardiogram 11/05/21 Sestamibi Stress Test (Cardiology) 11/08/21
--- NOTE | 2023-10-08 06:58 | W.PM.OPSUD ---
Surgery/Procedure H&P Update DATE OF PROCEDURE: October 08, 2023 DATE H&P PERFORMED: 09/10/23 H&P UPDATE INFORMATION: I have reviewed H&P completed within last 30 days, I have examined patient prior to procedure and No changes to prior documentation PREOP DIAGNOSIS: Left index finger trigger PRIMARY INDICATION FOR PROCEDURE: Left index finger trigger PLANNED PROCEDURE: Operation Date: 10/08/23 07:00 Proposed Procedures p Trigger Finger Release/LEFT INDEX FINGER TRIGGER RELEASE(Left) - Giovany Aguilar DO
[2023-10-08 07:01] LABS: Blood Urea Nitrogen 24 mg/dL (8-23); Calcium 9.2 mg/dL (8.5-10.5); Carbon Dioxide 24 mmol/L (22-29); Chloride 104 mmol/L (98-107); Glucose 137 mg/dL (65-115); Osmolality Calculated 298 mOsm/kg (285-295); Sodium 141 mmol/L (136-145)
[2023-10-08 07:03] LABS: Anion Gap 17.4 (5-19); Potassium 4.4 mmol/L (3.5-5.1)
[2023-10-08] MEDS: ceFAZolin 3,000 MG in sodium chloride 0.9% (plus) 100 ML 200 MG IV (07:11)
[2023-10-08 07:37] LABS: Basophils # 0.1 10^3/uL (0.0-0.1); Basophils % 1.7 %; Eosinophils # 0.2 10^3/uL (0.0-0.8); Eosinophils % 2.8 %; Hematocrit 45.4 % (37-53); Lymphocytes # 2.1 10^3/uL (0.8-4.8); Lymphocytes % 24.3 %; Mean Corpuscular HGB Conc 27.3 g/dL (30-55); Mean Corpuscular Hemoglobin 27.3 pg (27-33); Mean Corpuscular Volume 99.8 fl (82-101); Mean Platelet Volume 9.5 fL (7.4-10.4); Monocytes # 0.7 10^3/uL (0.2-0.9); Monocytes % 8.5 %; Neutrophils # 5.24 10^3/uL (1.8-7.7); Nucleated Red Blood Cells % 0 %; Platelet Count 270 10^3/cmm (157-399); Red Blood Count 4.55 10^6/uL (3.85-5.65); Red Cell Distribution Width 13.8 % (12.1-15.1); White Blood Count 8.46 10^3/uL (3.29-11.43)
[2023-10-08] MEDS: BUPivacaine 0.5% INJ 10 mL 5 ML INJECTION (07:37)
[2023-10-08] MEDS: ROPivacaine 0.5% SDV 30 mL 25 MG INJECTION (07:37)
--- NOTE | 2023-10-08 08:01 | P.BOP_ITS ---
Date of Procedure: 10/08/2023 Surgeon: Giovany Aguilar DO Photography And Prints Curator(s): BEN Rosado Procedure(s) performed: Left index finger trigger release Findings of the procedure(s): Patient found to have left index finger trigger underwent procedure as planned without issues or complications. Estimated blood loss: 1 mL Specimen(s) removed: None Post-operative diagnosis: Left index finger trigger
--- NOTE | 2023-10-08 08:02 | P.OP_ITS ---
Operative Report Date of procedure: October 08, 2023 Surgeon: Giovany Aguilar DO Pharmacy Delivery Driver: BEN Rosado Procedure: Preoperative diagnosis Left index finger trigger post-op diagnosis: Same Procedure done: Left index finger?trigger?release Surgeon: Giovany Aguilar DO Estimated blood loss: 1cc Tourniquet time 15mins Complications: None Condition: stable Disposition: same day Brief History: Patient's been seen and worked up in the outpatient setting and findings consistent with preoperative diagnosis of left index finger?trigger.? He is failed conservative treatment.? Continues to have mechanical locking and catching.? Severe pain as well.? We talked about treatment options nonoperative versus operative intervention.? ?Patient understands the risk benefits complication alternatives of surgical nonsurgical treatment options.? Understanding his risks with surgery he elects proceed with surgical intervention.? Consent obtained in the office.? Here today to proceed with surgical intervention.? All questions answered. Procedure: Patient was seen and evaluated in the preoperative holding area.? Consent was reviewed and signed with patient.? Seen evaluated by Anesthesia Department.? Once cleared for surgery was brought back to the operative suite.? Placed in supine position on the OR table all bony prominences well-padded patient p roperly secured to the bed.? Patient's left arm was then placed to the armboard.? A nonsterile tourniquet applied to the left upper arm.? Patient's left upper extremity was then prepped and draped in standard orthopedic fashion.? Final timeout performed.? Patient received appropriate preoperative antibiotics. Esmarch tourniquet was used exsanguinate the left upper extremity tourniquet insufflated to 250 mmHg. Under sterile aseptic technique local digital block was performed to the Left index finger.? Once appropriately anesthetized a standard oblique incision was made centering over the A1 machelle following patient's flexor crease.? Sharp scalpel incision was made only through skin and then switched to Littler dissection scissors and spread longitudinally directly over the flexor tendon sheath.? I then mobilized both radially and ulnarly and Kasdan retractors were used and placed by my assistant director of financial aid to protect neurovascular bundle.? Next I visualized the A1 machelle and this was incised with a scalpel.? I then switched to dissection scissors and released the A1 machelle both proximally as well as distally to its entirety.? Significant tendon sheath fluid was noted consistent with inflammation.? Mild fraying of the flexor tendons noted but no tear.? At this point I utilized a rag nail and pulled the tendons FDS and FDP out of the incision and no?triggering was noted.? I then had anesthesia wake up the patient and patient was able to actively flex and extend with no?triggering.? This point thorough irrigation was performed.? Tourniquet deflated hemostasis satisfactory with bipolar.? I then subsequently closed the incision with interrupted nylon suture.? Xeroform 4 x 4's, Kerlix and an Bruce wrap was applied for a bulky soft dressing.? Patient was then subsequently awakened from anesthesia and taken to PACU in stable condition tolerated procedure without issues. Disposition: Patient taken back in stable condition recovering well.? Patient will receive appropriate discharge instruction as well as pain medication postoperatively.? Patient to follow-up with me in the office in 2 weeks for repeat evaluation and incision check.? Patient understands that any questions or concerns and contact the office.? All questions answered.
--- NOTE | 2023-10-08 08:50 | ANE.PACU2 ---
Inpatient post-anesthesia follow up: Airway intact: Yes Vital signs: Temperature 97.8 F Pulse Rate 60 Respiratory Rate 19 Blood Pressure 135/63 Pulse Oximetry 96 Oxygen Delivery Me thod Room Air Oxygen Flow Rate Fraction of Inspir ed Oxygen Hydration adequate: Yes Nausea and vomiting: No Pain level: 1 Mental status: Baseline
== END 2023-10-08 08:50 | disposition home or self-care (01) ==
PROVIDERS: Anesthesiology; PCP Emergency Medicine Emergency Medical Services; Visit Provider Student in an Organized Health Care Education/Training Program
PROC: (CPT 26055; principal; 2023-10-08 07:00)
DX: M65.322 Trigger finger, left index finger (principal); E11.22 Type 2 diabetes mellitus with diabetic chronic kidney disease; I13.0 Hypertensive heart and chronic kidney disease with heart failure and stage 1 through stage 4 chronic kidney disease, or unspecified chronic kidney disease; N18.9 Chronic kidney disease, unspecified; E78.5 Hyperlipidemia, unspecified; I50.30 Unspecified diastolic (congestive) heart failure; N40.0 Benign prostatic hyperplasia without lower urinary tract symptoms; E66.9 Obesity, unspecified; Z68.43 Body mass index [BMI] 50.0-59.9, adult; Z87.891 Personal history of nicotine dependence; I25.10 Atherosclerotic heart disease of native coronary artery without angina pectoris
CPT/HCPCS: 26055; 36416; 36592; 80048; 82962; 85025; 93005; J0131; J0690; J1885; J2371; J2704; J2795; J3490; J7030

== ENCOUNTER → 2023-10-20 09:28 | Outpatient (BNVA) | payer OTHER, SELFPAY | PROVIDERS: PCP Emergency Medicine Emergency Medical Services; Visit Provider Student in an Organized Health Care Education/Training Program | DX: M65.322 Trigger finger, left index finger (principal) | CPT/HCPCS: 99213 ==

== ENCOUNTER → 2023-12-15 13:15 | Outpatient (BNVA) | payer OTHER, SELFPAY | PROVIDERS: PCP Emergency Medicine Emergency Medical Services; Visit Provider Podiatrist Foot & Ankle Surgery | DX: B35.1 Tinea unguium (principal); R60.9 Edema, unspecified; L84 Corns and callosities; B35.3 Tinea pedis; E11.69 Type 2 diabetes mellitus with other specified complication | CPT/HCPCS: 11056; 11721 ==

== ENCOUNTER → 2024-02-23 10:45 | Outpatient (BNVA) | payer OTHER, SELFPAY | PROVIDERS: PCP Emergency Medicine Emergency Medical Services; Visit Provider Podiatrist Foot & Ankle Surgery | DX: B35.1 Tinea unguium (principal); R60.9 Edema, unspecified; L84 Corns and callosities; B35.3 Tinea pedis; E11.69 Type 2 diabetes mellitus with other specified complication | CPT/HCPCS: 11056; 11721 ==

== ENCOUNTER → 2024-07-04 15:28 | Outpatient (BNVA) | payer OTHER, SELFPAY | PROVIDERS: PCP Emergency Medicine Emergency Medical Services; Visit Provider Podiatrist Foot & Ankle Surgery | DX: B35.1 Tinea unguium (principal); R60.9 Edema, unspecified; L84 Corns and callosities; B35.3 Tinea pedis; E11.69 Type 2 diabetes mellitus with other specified complication | CPT/HCPCS: 11056; 11721 ==

== ENCOUNTER → 2024-09-05 13:44 | Outpatient (BNVA) | payer OTHER, SELFPAY | PROVIDERS: PCP Emergency Medicine Emergency Medical Services; Visit Provider Podiatrist Foot & Ankle Surgery | DX: E11.69 Type 2 diabetes mellitus with other specified complication (principal); B35.1 Tinea unguium; R60.9 Edema, unspecified; L84 Corns and callosities; B35.3 Tinea pedis | CPT/HCPCS: 11721; 99213 ==

== ENCOUNTER → 2024-11-01 10:13 | Outpatient (BNVA) | payer OTHER, SELFPAY | PROVIDERS: PCP Emergency Medicine Emergency Medical Services; Visit Provider Podiatrist Foot & Ankle Surgery | DX: E11.69 Type 2 diabetes mellitus with other specified complication (principal); B35.1 Tinea unguium; R60.9 Edema, unspecified; L84 Corns and callosities; B35.3 Tinea pedis | CPT/HCPCS: 11721; 99213 ==

== ENCOUNTER → 2025-01-12 10:06 | Outpatient (BNVA) | payer OTHER, SELFPAY | PROVIDERS: PCP Nurse Practitioner Family; Visit Provider Podiatrist Foot & Ankle Surgery | DX: E11.42 Type 2 diabetes mellitus with diabetic polyneuropathy (principal); B35.1 Tinea unguium; L84 Corns and callosities; R60.9 Edema, unspecified; E11.69 Type 2 diabetes mellitus with other specified complication; B35.3 Tinea pedis | CPT/HCPCS: 11721 ==

== ENCOUNTER 2025-02-27 08:51 | Emergency (ER) | payer OTHER, MEDICARE, SELFPAY ==
--- OUTSIDE RECORDS SUMMARY | 2024-04-30 04:00 | XMS_ITS ---
Author Organization [facility] Address [address] [place] [address] Care Team Providers Care Vault Service Mechanic Name Role Phone [facility] Shukri CHANCE Primary Care Provider Un available Brando Michelle Unavailable [phone] Migration, Provider Unavailable Unavailable REASON FOR VISIT EMR-Paul Encounters Encounter Location Date Provider Diagnosis Migrated_Facility 0 0 04/30/2024 Provider Migration Plan Of Treatment No Information Progress Notes * MIRNA STUBBS CDOB:1944 (80 yo M)Acc No.[id number]:04/30/2024 Patient: Adolph MIRNA MISHRA :1945 A ge:79 Y S ex:Male Address: [address] [address] Subjective: * Chief Complaints: * E MR-Paul * * Date:
--- OUTSIDE RECORDS SUMMARY | 2025-01-02 08:30 | XMS_ITS | Encounter Summary ---
Author Name [facility] [place] Address [address] [place] [address] Care Team Providers Care Heat Treater Helper Name Role Phone BOSTON MARX Primary Care Provider Unavailabl e Insurance Providers: All historical and current Section Date Range: From patient's date of to the date document was created. This section includes the names of all active insurance providers for the patient. Insurance Provider Type of Coverage Plan Name Start of Policy Coverage End of Policy Coverage Group Number Member ID Insurance Provider's Telephone Number Policy Johns's Name Patient's Relationship to Policy Johns HUMANA [facility] ([facility]) MEDICARE ADVANTAGE [facility] ([facility]) Jul 06, 2018 [id number] MIRNA STUBBS PATIENT HUMANA [facility] ([facility]) MEDICARE ADVANTAGE HUMAN A HEALT H PLAN, Jul 06, 2017 [id number] MIRNA STUBBS PATIENT HUMANA MCR ([facility]) MEDICARE ADVANTAGE [facility] ([facility]) Jul 06, 2017 [id number] MIRNA STUBBS PATIENT HUMANA [facility] ([facility]) MEDICARE ADVANTAGE [facility] ([facility]) Jul 06, 2017 [id number] MIRNA STUBBS PATIENT MEDICARE PART D ([facility]) MEDICARE (M) PART D Jul 06, 2018 PART D [id number] [facility] MIRNA STUBBS PATIENT Selected Encounter This section includes the information on record at [place] for the Encounter. Date/Time Encounter Type Encounter Description Reason Provider Source Jan 02, 2025 01:30 PM OFFICE O/P EST MOD 30 MIN PRIMARY CARE/MEDICINE ICD-10-CM H10.89 Other conjunctivitis JAMES ESPINOZA G I[facility] Encounter Template Text not used by VA Assessments - Encounter Diagnoses This section includes the primary and secondary diagnoses documented for the Encounter. Date/Time Primary/Secondary Diagnosis Diagnosis Name Provider Source Jan 02, 2025 02:36 PM PRIMARY Other conjunctivitis PAULA ESPINOZA [facility] Jan 02, 2025 02:36 PM SECONDARY Dry eye syndrome of bilateral lacrimal glands PAULA ESPINOZA [facility] Jan 02, 2025 02:36 PM SECONDARY Other chronic allergic conjunctivitis PAULA ESPINOZA [facility] Plan of Treatment: Future Appointments (+ 6 months) and Future Tests (+/- 45 days) The Plan of Treatment section includes future care activities for the patient from all [place] [facility]. This section includes future appointments and future orders which are active, pending or scheduled. Future Appointments This section includes appointments that were scheduled to occur 6 months from the date of the Encounter, up to a maximum of 20 appointments. The data comes from all [place] treatment facilities. Appointment Date/Time Appointment Type Appointme nt Facility Name Jan 04, 2025 11:30 AM AMBULATORY - MEDICINE [facility] Mar 30, 2025 10:30 AM AMBULATORY - MEDICINE [facility] Mar 30, 2025 11:30 AM AMBULATORY - MEDICINE [facility] Jun 05, 2025 03:45 PM AMBULATORY - MEDICINE [facility] [facility] Jun 15, 2025 11:30 AM AMBULATORY - MEDICINE [facility] Vital Signs: All taken on the encounter date This section contains inpatient and outpatient Vital Signs collected on the date of the Encounter. Date/Time Temperature Pulse Blood Pressure Respiratory Rate SP02 Pain Height Weight Body Mass Index Source Jan 02, 2025 04:23 PM 97.8 F 72 /min 148/76 mm[Hg] 18 /min 94 % 5 315.2 lb 56 [facility] Jan 02, 2025 01:01 PM 97.8 F 68 /min 155/69 mm[Hg] 94 % [facility] Social History: Smoking Status (Most current) and Tobacco Use (All prior to encounter date) This section includes the most current, and the historical, smoking and tobacco- related health factors from the [place] facility where the Encounter took place. Current Smoking Status This section includes the most current smoking, or tobacco-related health factor, from the [place] facility where the Encounter took place. Date/Time Current Smoking Status Comment Facil ity Jun 06, 2024 03:30 PM VA-TOBACCO USE FORMER CIGARETTES [facility] Tobacco Use History This section includes a history of the smoking, or tobacco-related health factors, that were collected on or before the date of the Encounter. The data comes from the [place] facility where the Encounter took place. Date/Time Smoking Status/Tobacco Use Comment F acility Jun 06, 2024 03:30 PM VA-TOBACCO USE FORMER CIGARETTES [facility] Jun 01, 2023 11:30 AM VA-TOBACCO FORMER USER [facility] Jun 01, 2023 11:30 AM VA-TOBACCO QUIT 15 YRS OR MORE [facility] November 14, 2021 11:00 AM VA-TOBACCO FORMER USER [facility] November 14, 2021 11:00 AM VA-TOBACCO QUIT 15 YRS OR MORE [facility] November 15, 2020 10:30 AM VA-TOBACCO FORMER USER [facility] November 15, 2020 10:30 AM VA-TOBACCO QUIT 15 YRS OR MORE [facility] Feb 23, 2019 03:55 PM VA-TOBACCO FORMER USER [facility] Feb 23, 2019 03:55 PM VA-TOBACCO QUIT 15 YRS OR MORE [facility] Feb 25, 2018 08:17 AM QUIT TOBACCO >7 YEARS AGO [facility] Dec 21, 2017 02:32 PM QUIT TOBACCO >7 YEARS AGO [facility] Oct 14, 2017 12:28 PM QUIT TOBACCO >7 YEARS AGO [facility] Mar 23, 2017 11:03 AM QUIT TOBACCO >7 YEARS AGO [facility] Sep 05, 2010 09:02 AM TOBACCO MEDS OFFERED BUT DECLINE D [place] [facility] Sep 05, 2010 09:02 AM TOBACCO OFFERED PT MEDS (PROVIDE R) [facility] Sep 05, 2010 09:02 AM TOBACCO OFFERED STOP SMOKING CLI DANY [facility] Dec 27, 2009 01:23 PM QUIT TOBACCO >7 YEARS AGO [facility] Encounter Notes: All associated encounter notes This section contains the clinical notes associated to the Encounter. Date/Time Encounter Note(s) Provider Source 2025 02:08 PM TELEPHONE ENCOUNTE R NOTE: LOCAL TITLE: TELEPHONE NOTE STANDARD TITLE: TELEPHONE ENCOUNTER NOTE DATE OF NOTE: 2025@14:08 ENTRY DATE: 2025@14:09:15 AUTHOR: JOSE WERNER EXP COSIGNER: URGENCY: STATUS: COMPLETED Received call from Beaumont. Beaumont reports he may run out of metoprolol and Apixaban but is not due for refills until 03/15/25 and 03/08/2025. Advised Beaumont when he gets down to 3 days of meds left to contact clinic for a short supply reports he may have enough medication to last him until he gets his in the mail. /stewart/ Jose Werner RN BSN JACK PRASAD [facility] Signed: 2025 14:17 JOSE WERNER [facility] Jan 02, 2025 01:22 PM PRIMARY CARE PROGR ESS NOTE: LOCAL TITLE: PRIMARY CARE CLINIC PROGRESS NOTE PB STANDARD TITLE: PRIMARY CARE PROGRESS NOTE DATE OF NOTE: JAN 02, 2025@13:22 ENTRY DATE: JAN 02, 2025@13:22:17 AUTHOR: PAULA ESPINOZA EXP COSIGNER: URGENCY: STATUS: COMPLETED Date & Time: Dec@13:22 This is a 79 year old MALE Allergies: Patient has answered DESTINEE CC: Tyra HPI: Beaumont presented today as a walk-in for an unscheduled appointment for red eye and that he was treated in a month or so ago from the eye doctor but it got better now it got bad again is complaining of excessive tearing and rubbing his eyes because of irritation and it feels like something is in the him all the time we talked about dry eyes and allergies affecting those things and with constantly rubbing them and putting her fingers and causes a bacterial infection so we will send drops for dry eyes and allergy RI drops. Will call out some Polymyxin eyedrops to the [facility] here in [place] Temperature: 97.8 F [36.6 C] (01/02/2025 13:01) Respiratory Rate: 20 (11/09/2024 11:45) Pulse Rate: 68 (01/02/2025 13:01) Blood Pressure: 155/69 (01/02/2025 13:01) HT: 63 in [160.0 cm] (06/06/2024 13:41) WT: 328.9 lb [149.19 kg] (11/09/2024 11:45) BMI: 58.4 94% (01/02/2025 13:01) REVIEW OF SYSTEMS: HEENT: Right eye red irritated crusty with yellow-green exudate excessively watering states very itchy and burning constantly running and rubbing eyes because they feel irritated all the time RESPIRATORY: No cough, SOA, wheezing, or sputum production. MUSCULOSKELETAL: No muscle or joint pain. SKIN: No rash, lesions, or infection PSYCH: No depression and anxious at this time. Not suicidal. 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 [id number]) 13) AF - Atrial Fibrillation (SCT 17204308) 14) Obstructive Sleep Apnea of Adult (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 16) Renal Impairment (SCT 230451868) 17) Chronic low back pain 18) Tinea pedis 19) Callus 20) Onychomycosis 21) Edema 22) Sensorineural hearing loss of bilateral ears Active Outpatient Medications (including Supplies): Active Outpatient Medications Status 1) ACCU-CHEK GUIDE (GLUCOSE) TEST STRIP USE 1 STRIP FOR BLOOD ACTIVE TEST DIRECTED 2) ALBUTEROL 100/IPRATRO 20MCG 120D PO INHL INHALE 1 PUFF BY ACTIVE ORAL INHALATION FOUR TIMES A DAY DIRECTED Indication: FOR COPD 3) APIXABAN 5MG TAB TAKE ONE TABLET BY MOUTH TWICE A DAY ACTIVE Indication: FOR ANTICOAGULATION 4) BRIEF,BARIATRIC UNDERWEAR XXX-LG ATTENDS USE 1 BRIEF TO ACTIVE AFFECTED AREA(S) EVERY MORNING NEEDED Indication: FOR INCONTINENCE 5) EMPAGLIFLOZIN 25MG TAB TAKE ONE TABLET BY MOUTH ONCE A DAY ACTIVE Indication: FOR DIABETES 6) FERROUS SULFATE 325MG TAB TAKE ONE TABLET BY MOUTH ONCE A ACTIVE DAY Indication: FOR IRON DEFICIENCY ANEMIA 7) FINASTERIDE 5MG TAB TAKE ONE TABLET BY MOUTH ONCE A DAY FOR ACTIVE PROSTATE. SWALLOW WHOLE, DO NOT CRUSH, SPLIT, OR CHEW. 8) FUROSEMIDE 40MG TAB TAKE ONE TABLET BY MOUTH EVERY MORNING ACTIVE Indication: FOR FLUID RETENTION (EDEMA) 9) ISOSORBIDE MONONITRATE 30MG SA TAB TAKE ONE TABLET BY MOUTH ACTIVE ONCE A DAY TAKE ON EMPTY STOMACH. SWALLOW WHOLE. DO NOT CRUSH OR CHEW. Indication: FOR CHEST PAIN 10) LIDOCAINE 5% OINT APPLY LIGHTLY TO AFFECTED AREA(S) FOUR ACTIVE TIMES A DAY NEEDED Indication: FOR PAIN 11) METFORMIN HCL 500MG 24HR SA TAB TAKE ONE TABLET BY MOUTH ACTIVE TWICE A DAY TAKE WITH FOOD. AVOID ALCOHOL. DISCONTINUE BEFORE GETTING XRAY DYE. Indication: FOR DIABETES 12) METOPROLOL TARTRATE 100MG TAB TAKE ONE-HALF TABLET BY MOUTH ACTIVE TWICE A DAY WITH FOOD FOR HEART AND TO LOWER BLOOD PRESSURE THIS TABLET IS TO BE CUT IN HALF FOR YOUR DOSE 13) NYSTATIN 447479 UNT/GM CREAM APPLY LIGHTLY TO AFFECTED ACTIVE AREA(S) THREE TIMES A DAY - TOPICAL USE ONLY. Indication: FOR FUNGAL SKIN INFECTION 14) OXYBUTYNIN CHLORIDE 10MG SA TAB TAKE ONE TABLET BY MOUTH ACTIVE ONCE A DAY SWALLOW WHOLE, DO NOT CRUSH OR CHEW. Indication: FOR OVERACTIVE BLADDER 15) PANTOPRAZOLE NA 40MG EC TAB TAKE ONE TABLET BY MOUTH EVERY ACTIVE MORNING BEFORE A MEAL TAKE 30 MINUTES BEFORE MEAL(S) Indication: FOR GASTROESOPHAGEAL REFLUX DISEASE 16) ROSUVASTATIN CA 20MG TAB TAKE ONE-HALF TABLET BY MOUTH EVERY ACTIVE EVENING TO LOWER CHOLESTEROL 17) TAMSULOSIN HCL 0.4MG CAP TAKE TWO CAPSULES BY MOUTH EVERY ACTIVE EVENING APPROXIMATELY 30 MINUTES AFTER THE SAME MEAL EACH DAY (FOR PROSTATE) OBJECTIVE: Physical Exam General: NAD noted, A&Ox3, pleasant, appears stated age HEENT: NCAT, right eye erythematous bloodshot crusty with yellow-greenish exudate and crust or crust I very itchy burning and excessively watering Abdomen: Soft, non-distended, non-tender Ext: No clubbing, cyanosis, edema or obvious deformity Neuro: Grossly intact Psych: Affect normal, answers questions appropriately throughout visit Assessment/Plan: Conjunctivitis -current plan Polymyxin T eyedrops to be called to the [facility] immediate need form given to Dry eyes bilaterally -current Plan to send Systane eyedrops in the mail to to use regularly Allergic conjunctivitis -current plan to send Pataday eyedrops in the mail to to use regularly Follow-up: as needed. Discussed with patient that in the event of community imaging / testing being ordered in the future, once the imaging / testing has been completed, please notify PACT of completion at outside facility if not called with results within 1 week by a [place] PACT member; this is due to intermittent lapses in notification of imaging completion within CPR[facility]. All questions answered; agrees to plan of care. Follow up as listed above, annually, and as needed. Keep all appointments. Medications Reconciled. See AVS given to Beaumont. Time spent 30 minutes. Paula THOMPSON /stewart/ ANISHA Luis, MSN, Jack Prasad [facility] Signed: 01/02/2025 14:41 PAULA ESPINOZA [facility]
--- OUTSIDE RECORDS SUMMARY | 2025-02-20 09:40 | XMS_ITS | Encounter Summary ---
Author Name [facility] [place] Address [address] [place] [address] Care Team Providers Care Traffic Maintenance Supervisor Name Role Phone BOSTON MARX Primary Care [...] Name Patient's Relationship to Policy Johns HUMANA [facility] (R) MEDICARE ADVANTAGE [facility] ([facility]) Jul 06, 2018 [id number] CLINT STUBBS PATIENT HUMANA [facility] ([facility]) MEDICARE ADVANTAGE HUMAN A HEALT H PLAN, Jul 06, 2017 [id number] CLINT STUBBS PATIENT HUMANA MCR ([facility]) MEDICARE ADVANTAGE [facility] ([facility]) Jul 06, 2017 [id number] CLINT STUBBS PATIENT HUMANA MCR ([facility]) MEDICARE ADVANTAGE [facility] ([facility]) Jul 06, 2017 [id number] CLINT STUBBS PATIENT MEDICARE PART D ([facility]) MEDICARE (M) PART D Jul 06, 2018 PART D [id number] CLINT STUBBS PATIENT Selected Encounter This section includes the information on record at [place] for the Encounter. Date/Time Encounter Type Encounter Description Reason Pro vider Source 2025 02:40 PM Outpatient Encounter COMMUNITY CARE CONSULT IHE Encounter Template Text not used by [place] Plan of Treatment: Future Appointments (+ 6 months) and Future Tests (+/- 45 days) The Plan of Treatment section includes future care activities for the patient [facility] This section includes future appointments and future orders which are active, pending or scheduled. Future Appointments This section includes appointments that were scheduled to occur 6 months from the date of the Encounter, up to a maximum of 20 appointments. The data comes from all [facility]. Appointment Date/Time Appointment Type Appointme nt Facility Name Mar 30, 2025 10:30 AM AMBULATORY - MEDICINE [facility] Mar 30, 2025 11:30 AM AMBULATORY - MEDICINE [facility] Jun 05, 2025 03:45 PM AMBULATORY - MEDICINE [facility] Jun 15, 2025 11:30 AM AMBULATORY - MEDICINE [facility] Active, Pending, and Scheduled Orders This section includes a listing of several types of active, pending, and scheduled orders, including clinic medications orders, diagnostic test orders, procedure orders and consult orders; where the start date of the order is 45 days before the date of the Encounter or 45 days after the date of theEncounter. The data comes from all [facility]. Test Date/Time Test Type Test Details Facility Name Feb 17, 2025 02:53 PM Consult Order COMMUNITY CARE-PODIATRY [id number] Cons Assembler Bonding's Choice [facility] Mar 29, 2025 12:00 AM Laboratory - Chemi stry Order [id number] BLOOD [facility] Mar 29, 2025 12:00 AM Laboratory - Chemi stry Order BASIC METABOLIC PANEL GREEN LI/HEP BLD/PLAS PLASMA [facility] Social History: Smoking Status (Most current) and Tobacco Use (All prior to encounter date) This section includes the most current, and the historical, smoking and tobacco- related health factors from the [place] facility where the Encounter took place. Current Smoking Status This section includes the most current smoking, or tobacco-related health factor, from the [place] facility where the Encounter took place. Date/Time Current Smoking Status Comment Raquel villela Oct 29, 2007 05:30 PM QUIT TOBACCO >7 YEARS AGO [facility] Encounter Notes: All associated encounter notes This section contains the clinical notes associated to the Encounter. Date/Time Encounter Note(s) Provider Source 2025 02:40 PM LETTERS: LOCAL TITLE: COMMUNITY CARE-REFERRAL PB (AUTO-PRINT) STANDARD TITLE: LETTERS DATE OF NOTE: 2025@14:40:42 ENTRY DATE: 2025@14:40:42 AUTHOR: DENIZ OTERO COSIGNER: URGENCY: STATUS: COMPLETED Clint Stubbs [address] [place], [place] [address] Dear CLINT STUBBS, Your VA provider has referred you to a provider within the community for care. Your medical care for CARDIOLOGY has been authorized with the Community Care Provider listed below. DO NOT REPORT TO THE [facility] Provider info: An appointment has been scheduled for you on: Jun 05, 2025 05:45 PM Office Name: Address: [address] [place] [address] Address: [facility] Auth #: [id number] Referral Issue Date: 11/18/24 Expiration Date: 12/02/25 If you are unable to keep this appointment or the appointment is no longer needed, please contact the community provider above for notification/rescheduling and then call the Nixon Prasad [place] Community Care Office at [phone] ext [phone]. If you need additional care/services not mentioned above, please contact your primary care provider for a new referral. Co-Payments: If you are required to pay a VA co-payment, you will be billed by the PA for each authorized visit that you attend. However, you are NOT REQUIRED to make co-payments to a Community Provider. Prescriptions: Your community provider may write a prescription related to the authorized care. If there is an immediate need for your prescriptions from your community care visit, you may be able to get up to a 14-day fill of your prescription at your own expense for the cost of the medication, and may seek reimbursement from the VA. If you require more than a 14-day supply or if the prescribed medication is not immediately needed, your community provider will send a prescription to a [place] pharmacy so that the VA can provide you with your routine medication. In-network locations can be found at https://www.va.gov/find-lo cations/ Medical Devices: Your community provider may recommend that medical devices, adapted equipment, or other items be provided for the treatment or rehabilitation of your medical condition. Veterans are generally required to obtain these items through the Prosthetics and Sensory Aids Service (PSAS) in your referring facility. Emergency/Inpatient Services: You, your community provider, or your family must provide notification within 72hr or ER visit and/or admission by [phone]. Thank you for the opportunity to serve you and for your service to our great nation! DENIZ Fordhing [facility] Care in the Community [address] [facility] [place] [address] DENIZ OTERO [facility]
--- OUTSIDE RECORDS SUMMARY | 2025-02-22 09:54 | XMS_ITS | Encounter Summary ---
Author Name [facility] [place] Address [address] [place] [id number] Care Team Providers Care Dispensing Lead Name Role Phone BOSTON MARX Primary Care [...] Name Patient's Relationship to Policy Johns HUMANA [facility] (R) MEDICARE ADVANTAGE [facility] ([facility]) Jul 06, 2018 [id number] MIRNA STUBBS PATIENT HUMANA [facility] ([facility]) MEDICARE ADVANTAGE HUMAN A HEALT H PLAN, Jul 06, 2017 [id number] MIRNA STUBBS PATIENT [employer]MANA MCR ([facility]) MEDICARE ADVANTAGE [facility] ([facility]) Jul 06, 2017 [id number] 32 MIRNA STUBBS PATIENT [employer]MANA MCR ([facility]) MEDICARE ADVANTAGE [facility] ([facility]) Jul 06, 2017 [id number] 32 MIRNA STUBBS PATIENT MEDICARE PART D ([facility]) MEDICARE (M) PART D Jul 06, 2018 PART D [id number] [phone] ENOC MIRNA PATIENT Selected Encounter This section includes the information on record at [place] for the Encounter. Date/Time Encounter Type Encounter Description Reason Provider Source Feb 22, 2025 02:54 PM Outpatient Encounter COMMUNITY CARE CONSULT JUJU ROBERSON IHKrissy Encounter Template Text not used by [place] Plan of Treatment: Future Appointments (+ 6 months) and Future Tests (+/- 45 days) The Plan of Treatment section includes future care activities for the patient from all [place] [facility] This section includes future appointments and future orders which are active, pending or scheduled. Future Appointments This section includes appointments that were scheduled to occur 6 months from the date of the Encounter, up to a maximum of 20 appointments. The data comes from all [facility]. Appointment Date/Time Appointment Type Appointme nt Facility Name Mar 30, 2025 10:30 AM AMBULATORY - [facility]ICINE [facility] Mar 30, 2025 11:30 AM [facility] Jun 05, 2025 03:45 PM AMBULATORY - MEDICINE [facility] Jun 15, 2025 11:30 AM [facility] Active, Pending, and Scheduled Orders This section includes a listing of several types of active, pending, and scheduled orders, including clinic medications orders, diagnostic test orders, procedure orders and consult orders; where the start date of the order is 45 days before the date of the Encounter or 45 days after the date of theEncounter. The data comes from all [facility]. Test Date/Time Test Type Test Details Facility Name Feb 17, 2025 02:53 PM Consult Order COMMUNITY CARE-PODIATRY 657A4 Cons Strip Machine [facility] Choice [facility] Mar 29, 2025 12:00 AM Laboratory - Chemi stry Order HGA1C BLOOD [facility] Mar 29, 2025 12:00 AM Laboratory - Chemi stry Order BASIC METABOLIC PANEL GREEN LI/HEP BLD/PLAS PLASMA [facility] Social History: Smoking Status (Most current) and Tobacco Use (All prior to encounter date) This section includes the most current, and the historical, smoking and tobacco- related health factors from the [place] facility where the Encounter took place. Current Smoking Status This section includes the most current smoking, or tobacco-related health factor, from the [place] facility where the Encounter took place. Date/Time Current Smoking Status Comment Facil theresey Oct 29, 2007 05:30 PM QUIT TOBACCO >7 YEARS AGO [facility] Encounter Notes: All associated encounter notes This section contains the clinical notes associated to the Encounter. Date/Time Encounter Note(s) Provider Source Feb 22, 2025 02:54 PM NONVA NOTE: LOCAL TITLE: COMMUNITY CARE-CARE COORDINATION PLAN NOTE 657A4 PB STANDARD TITLE: NONVA NOTE DATE OF NOTE: FEB 22, 2025@14:54 ENTRY DATE: FEB 22, 2025@14:54:34 AUTHOR: JUJU ROBERSON EXP COSIGNER: URGENCY: STATUS: COMPLETED Community Care Consult: PODIATRY Consult No: [id number] [facility] Referral #: [id number] Chief Complaint: Pain in Unspecified Ankle and Joints of Unspecified Foot Patient Admitted? No Level of Care Coordination Complex/Chronic Care Coordination was determined from: Chart Review Facility Community Care Office Contact Care Coordination Point of Contact: Juju Roberson Services: Moderate Care Coordination Services Case Management, if appropriate Direct communications with interdisciplinary team Plan: Continuation of care. /es/ JUJU ROBERSON MSN, RN Signed: 02/22/2025 14:56 JUJU ROBERSON [facility]
--- OUTSIDE RECORDS SUMMARY | 2025-02-24 09:25 | XMS_ITS | Encounter Summary ---
Author Name [facility] [place] Address [address] [place] [address] Care Team Providers Care Car Shunter Name Role Phone BOSTON MARX Primary Care [...] Name Patient's Relationship to Policy Johns HUMANA [facility] (R) MEDICARE ADVANTAGE [facility] ([facility]) Jul 06, 2018 [id number] CLINT STUBBS PATIENT HUMANA [facility] ([facility]) MEDICARE ADVANTAGE HUMAN A HEALT H PLAN, Jul 06, 2017 [id number] 32 CLINT STUBBS PATIENT HUMANA MCR ([facility]) MEDICARE ADVANTAGE [facility] ([facility]) Jul 06, 2017 [id number] 32 CLINT STUBBS PATIENT [employer]MANA MCR ([facility]) MEDICARE ADVANTAGE [facility] ([facility]) Jul 06, 2017 [id number] 32 CLINT STUBBS PATIENT MEDICARE PART D ([facility]) MEDICARE (M) PART D Jul 06, 2018 PART D [id number] CLINT STUBBS PATIENT Selected Encounter This section includes the information on record at [place] for the Encounter. Date/Time Encounter Type Encounter Description Reason Pro vider Source Feb 24, 2025 02:25 PM Outpatient Encounter COMMUNITY CARE CONSULT IHE Encounter Template Text not used by [place] Plan of Treatment: Future Appointments (+ 6 months) and Future Tests (+/- 45 days) The Plan of Treatment section includes future care activities for the patient from all [place] [facility]. This section includes future appointments and future orders which are active, pending or scheduled. Future Appointments This section includes appointments that were scheduled to occur 6 months from the date of the Encounter, up to a maximum of 20 appointments. The data comes from all [facility]. Appointment Date/Time Appointment Type Appointme nt Facility Name Mar 30, 2025 10:30 AM AMBULATORY - MEDICINE [facility] Mar 30, 2025 11:30 AM AMBULATORY - MEDICINE [facility] Jun 05, 2025 03:45 PM AMBULATORY - MEDICINE [facility] Jun 15, 2025 11:30 AM AMBULATORY - MEDICINE [facility] Active, Pending, and Scheduled Orders This section includes a listing of several types of active, pending, and scheduled orders, including clinic medications orders, diagnostic test orders, procedure orders and consult orders; where the start date of the order is 45 days before the date of the Encounter or 45 days after the date of theEncounter. The data comes from all [facility]. Test Date/Time Test Type Test Details Facility Name Feb 17, 2025 02:53 PM Consult Order COMMUNITY CARE-PODIATRY 657A4 Cons Yard Brakeman's Choice [facility] Mar 29, 2025 12:00 AM Laboratory - Chemi stry Order HGA1C BLOOD [facility] Mar 29, 2025 12:00 AM Laboratory - Chemi stry Order BASIC METABOLIC PANEL GREEN LI/HEP BLD/PLAS PLASMA [facility] Social History: Smoking Status (Most current) and Tobacco Use (All prior to encounter date) This section includes the most current, and the historical, smoking and tobacco- related health factors from the [place] facility where the Encounter took place. Current Smoking Status This section includes the most current smoking, or tobacco-related health factor, from the [place] facility where the Encounter took place. Date/Time Current Smoking Status Comment Raquel villela Oct 29, 2007 05:30 PM QUIT TOBACCO >7 YEARS AGO [facility] Encounter Notes: All associated encounter notes This section contains the clinical notes associated to the Encounter. Date/Time Encounter Note(s) Provider Source Feb 24, 2025 02:25 PM LETTERS: LOCAL TITLE: COMMUNITY CARE-REFERRAL PB (AUTO-PRINT) STANDARD TITLE: LETTERS DATE OF NOTE: FEB 24, 2025@14:25:55 ENTRY DATE: FEB 24, 2025@14:25:55 AUTHOR: JORDAN ZAMUDIO COSIGNER: URGENCY: STATUS: COMPLETED Clint Stubbs [address] [place], [place] [address] Dear CLINT STUBBS, Your VA provider has referred you to a provider within the community for care. Your medical care for Podiatry has been authorized with the Community Care Provider listed below. DO NOT REPORT TO THE [facility] Provider info: An appointment has been scheduled for you on: Invalid date Office Name: JERICA MCCABE Address: [address] [place] [address] Address: [facility] [id number] Referral Number: [id number] Referral Issue Date: 2025-02-24 Expiration Date: 2026-03-30 If you are unable to keep this appointment or the appointment is no longer needed, please contact the community provider above for notification/rescheduling and then call the Nixon Prasad [place] Community Care Office at [phone] Ext [phone]. If you need additional care/services not mentioned above, please contact your primary care provider for a new referral. Co-Payments: If you are required to pay a VA co-payment, you will be billed by the VA for each authorized visit that you attend. [...] provider will send a prescription to a [place] pharmacy so that the VA can provide you with your routine medication. In-network locations can be found at https://www.md.gov/find-lo cations/ Medical Devices: Your community provider may [...] 72hr or ER visit and/or admission by [phone]. Thank you for the opportunity to serve you and for your service to our great nation! Patience Prasad [facility] Care in the Community [address] [place] [address] JORDAN ZAMUDIO [facility]
--- OUTSIDE RECORDS SUMMARY | 2025-02-27 03:57 | XMS_ITS | Continuity of Care Document ---
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 It does not include entries that were removed or entered in error. Problem Status Onset Date Problem Type Date of Resolution Comments Source AF - Atrial Fibrillation ([facility] [id number]) Active Condition November 14, 2021 Entered By: MICHAEL WAGNER Comment: Suspect intermitent. 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 [place] [facility] COPD - Chronic Obstructive Pulmonary Disease (SCT [id number]) Active Condition Feb 25, 2019 Entered By: MICHAEL WAGNER Comment: Per CXR 02/25/19. [place] [facility] DERMATOPHYTOSIS SITE NOS Active Condition [place] Diabetes mellitus Active Condition [place] [facility] Edema Active Condition [facility] Essential hypertension (SNOMED CT 46556515) Active Condition [place] [facility] Extreme obesity with alveolar hypoventilation Active Condition [place] [facility] H/O: peptic ulcer Active Condition [place] [facility] History of cholecystectomy Active Condition [place] [facility] HL - Hearing loss Active Condition [place] [facility] Hyperlipidemia (SNOMED CT 82114537) Active Condition [place] [facility] JOINT PAIN-ANKLE Active [place] [facility] Obesity (SNOMED CT 243992232) Active Condition [place] [facility] OBESITY, UNSP Active Condition [place] [facility] [place] [facility] Obstructive Sleep Apnea of Adult ([facility] [id number]) Active Condition [place] [facility] Onychomycosis Active Condition [facility] Renal Impairment ([facility] 922630303) Active Condition [place] [facility] Sensorineural hearing loss of bilateral ears Active Condition [place] [facility] Tinea pedis Active Condition [facility] Tinnitus Active Condition [place] [facility] TOBACCO USE DISORDER Active Condition [facility] UMBILICAL HERNIA Active Condition [facility] Ankle Sprain/Strain Inactive Condition 06/02/2023 [place] [facility] Disorder of breast (SNOMED CT 91129880) Inactive Condition 06/02/2023 [place] [facility] Ex-smoker (SNOMED CT 4726018) Inactive Condition 06/02/2023 [place] [facility] Foot callus (SNOMED CT 479341990) Inactive Condition 06/02/2023 [place] [facility] Gynecomastia (SNOMED CT 6007494) Inactive Condition 06/02/2023 [place] [facility] Hypertension (SNOMED CT 25910558) Inactive Condition 02/25/2019 [place] [facility] Shoulder Arthritis Inactive Condition 06/02/2023 [place] [facility] Unresolved Inactive Condition 02/25/2019 [place] [facility] Diagnosis: ICD-10-CM H04.129 Dry eye syndrome of unspecified lacrimal gland Active Diagnosis [place] [facility] Diagnosis: ICD-10-CM H10.89 Other conjunctivitis Active Diagnosis [facility] Diagnosis: ICD-10-CM G47.33 Obstructive sleep apnea (adult) (pediatric) Active Diagnosis [place] [facility] Diagnosis: ICD-10-CM Z51.81 Encounter for therapeutic drug level monitoring Active Diagnosis [place] [facility] Diagnosis: ICD-10-CM I50.31 Acute diastolic (congestive) heart failure Active Diagnosis [facility] Diagnosis: ICD-10-CM M25.572 Pain in left ankle and joints of left foot Active Diagnosis [facility] Diagnosis: ICD-10-CM Z09 Encntr for f/u exam aft trtmt for cond oth than malig neoplm Active Diagnosis [facility] Diagnosis: ICD-10-CM Z46.1 Encounter for fitting and adjustment of hearing aid Active Diagnosis [place] [facility] Diagnosis: ICD-10-CM Z00.01 Encounter for general adult medical exam w abnormal findings Active Diagnosis [facility] Diagnosis: ICD-10-CM N39.0 Urinary tract infection, site not specified Active Diagnosis [facility] Diagnosis: ICD-10-CM H93.13 Tinnitus, bilateral Active Diagnosis [place] [facility] Diagnosis: ICD-10-CM Z23 Encounter for immunization Active Diagnosis [facility] Diagnosis: ICD-10-CM M79.641 Pain in right hand Active Diagnosis [facility] Diagnosis: ICD-10-CM N40.1 Benign prostatic hyperplasia with lower urinary tract symp Active Diagnosis [facility] Diagnosis: ICD-10-CM J44.9 Chronic obstructive pulmonary disease, unspecified Active Diagnosis [facility] Medications Combined list of outpatient medications from Department of Defense and Veterans Affairs facilities.Medications provided include 1) outpatient medications from the last 15 months, and 2) patient-reported medications. Medication Details Route Status Patient Instructions Prescription Expires Prescription Number Last Dispense Date Ordering Provider Order Date Order Qty Source ALBUTEROL 100MCG/IPRA TROPIUM BR 20MCG/SPRAY INHALER,ORA L,4GM INHALE 1 PUFF BY ORAL INHALATI ON FOUR TIMES A DAY DIRECTED FOR COPD RESPIR ATORY (INHAL ATION) ACTIVE 06/16/2025 [id number] JESU ESPINOZA [address] [place] [address] ALBUTEROL SO4 90MCG/ACTUA T (CFC-F) INHL,ORAL,8 .5GM INHALE 2 PUFFS ORAL INHALATI ON FOUR TIMES A DAY NEEDED FOR COPD SHAKE WELL. RINSE MOUTHPIE CE FREQUENT LY TO PREVENT CLOGGING . RESPIR ATORY (INHAL ATION) 09/28/2024 [id number] 5 DIANNE WAGNER 2023 3 [facility] APIXABAN 5MG TAB TAKE ONE TABLET BY MOUTH TWICE A DAY FOR ANTICOAG ULATION ORAL ACTIVE 11/15/2025 [id number] 5 WALE NICHOLAS 2024 180 [place] [facility] APIXABAN 5MG TAB TAKE ONE TABLET BY MOUTH TWICE A DAY FOR ANTICOAG ULATION ORAL DISCONT INUED (EDIT) 12/14/2024 [id number] 5 WALE NICHOLAS 2023 180 [place] [facility] CARBOXYMETH YLCELLULOSE NA 1% GEL,OPH 0.4ML INSTILL 1 DROP INTO BOTH EYES FOUR TIMES A DAY OPHTHA LMIC ACTIVE 01/12/2026 [id number] 5 Srinivas GALO 2024 90 [place] [facility] EMPAGLIFLOZ IN 25MG TAB TAKE ONE TABLET BY MOUTH ONCE A DAY FOR DIABETES ORAL ACTIVE 12/14/2025 [id number] 5 JESU ESPINOZA [address] [place] [address] CB FERROUS SO4 325MG TAB TAKE ONE TABLET BY MOUTH ONCE A DAY FOR IRON DEFICIEN CY ANEMIA ORAL ACTIVE 06/17/2025 [id number] 5 JESU ESPINOZATEL G [address] [place] [address] FERROUS SO4 325MG TAB TAKE ONE TABLET BY MOUTH ONCE A DAY FOR IRON SUPPLEME NTATION. ORAL 01/20/2024 [id number] 4 DIANNE WAGNER [address] [place] [address] FINASTERIDE 5MG TAB TAKE ONE TABLET BY MOUTH ONCE A DAY FOR PROSTATE . SWALLOW WHOLE, DO NOT CRUSH, SPLIT, OR CHEW. ORAL ACTIVE 11/15/2025 [id number] 5 JESU ESPINOZA ISTEEvelia G [address] [place] [address] FINASTERIDE 5MG TAB TAKE ONE TABLET BY MOUTH ONCE A DAY FOR PROSTATE . SWALLOW WHOLE, DO NOT CRUSH, SPLIT, OR CHEW. ORAL DISCONT INUED 10/12/2024 [id number] 5 DIANNE WAGNER [address] [place] [address] FUROSEMIDE 20MG TAB TAKE TWO TABLETS BY MOUTH EVERY MORNING NEEDED AND TAKE ONE TABLET NEEDED FOR FLUID RETENTIO N ORAL 01/20/2024 [id number] 4 DIANNE WAGNER 2022 250 [facility] FUROSEMIDE 40MG TAB TAKE ONE TABLET BY MOUTH EVERY MORNING FOR FLUID RETENTIO N (EDEMA) ORAL ACTIVE 12/09/2025 [id number] 5 JESU ESPINOZA ISTEL G 2024 90 [facility] FUROSEMIDE 40MG TAB TAKE ONE TABLET BY MOUTH EACH MORNING NEEDED FOR FLUID RETENTIO N (EDEMA) ORAL DISCONT INUED 03/09/2025 [id number] 5 JESU ESPINOZA ISTEL G [address] [place] [address] [facility]OC FUROSEMIDE 40MG TAB TAKE ONE TABLET BY MOUTH EACH MORNING NEEDED FOR FLUID RETENTIO N (EDEMA) ORAL DISCONT INUED 03/09/2025 [id number] 4 JESU ESPINOZA ISTEL G 2023 90 [facility] ISOSORBIDE MONONITRATE 30MG TAB,SA TAKE ONE TABLET BY MOUTH ONCE A DAY FOR CHEST PAIN TAKE ON EMPTY STOMACH. SWALLOW WHOLE. DO NOT CRUSH OR CHEW. ORAL ACTIVE 10/11/2025 [id number] 5 JESU ESPINOZA ISTEL G 2024 90 [facility] ISOSORBIDE MONONITRATE 30MG TAB,SA TAKE ONE TABLET BY MOUTH ONCE A DAY TO PREVENT CHEST PAIN. TAKE ON EMPTY STOMACH. SWALLOW WHOLE. DO NOT CRUSH OR CHEW. ORAL DISCONT INUED 10/12/2024 [id number] 5 DIANNE WAGNER 2023 90 [facility] LIDOCAINE 5% OINT,TOP APPLY LIGHTLY TO AFFECTED AREA(S) FOUR TIMES A DAY NEEDED FOR PAIN TOPICA L ACTIVE 06/16/2025 [id number] 4 JESU ESPINOZA ISTEL G 2023 70 [facility] METFORMIN HCL 500MG 24HR TAB,SA TAKE ONE TABLET BY MOUTH TWICE A DAY FOR DIABETES TAKE WITH FOOD. AVOID ALCOHOL. DISCONTI NUE BEFORE GETTING XRAY DYE. ORAL ACTIVE 12/14/2025 [id number] 5 JESU ESPINOZA ISTEL G 2024 180 [facility] METOPROLOL TARTRATE 100MG TAB TAKE ONE-HALF TABLET BY MOUTH TWICE A DAY WITH FOOD FOR HEART AND TO LOWER BLOOD PRESSURE THIS TABLET IS TO BE CUT IN HALF FOR YOUR DOSE ORAL SUSPEND ED 07/19/2025 [id number] 5 JESU ESPINOZA ISTEL G 2024 90 [place] [facility] METOPROLOL TARTRATE 100MG TAB TAKE ONE-HALF TABLET BY MOUTH TWICE A DAY WITH FOOD FOR HEART AND TO LOWER BLOOD PRESSURE THIS TABLET IS TO BE CUT IN HALF FOR YOUR DOSE ORAL DISCONT INUED 10/12/2024 [id number] 5 DIANNE WAGNER 2023 90 [facility] NYSTATIN 631278TYQ/G M CREAM,TOP APPLY LIGHTLY TO AFFECTED AREA(S) THREE TIMES A DAY FOR FUNGAL SKIN INFECTIO N - TOPICAL USE ONLY. TOPICA L ACTIVE 11/10/2025 [id number] 5 JESU ESPINOZA ISTEL G 2024 60 [facility] NYSTATIN 319600HDH/G M CREAM,TOP APPLY LIGHTLY TO AFFECTED AREA(S) THREE TIMES A DAY FOR FUNGAL SKIN INFECTIO N - TOPICAL USE ONLY. TOPICA L DISCONT INUED (EDIT) 11/02/2025 [id number] 5 JESU ESPINOZA ISTEL G 2024 45 [facility] NYSTATIN 243488UFS/G M CREAM,TOP APPLY LIGHTLY TO AFFECTED AREA(S) THREE TIMES A DAY FOR FUNGAL SKIN INFECTIO N - TOPICAL USE ONLY. TOPICA L DISCONT INUED 10/26/2024 [id number] 5 DIANNE WAGNER 2023 45 [facility] OLOPATADINE HCL 0.2% SOLN,OPH INSTILL 1 DROP IN BOTH EYES ONCE A DAY FOR ALLERGIC CONJUNCT IVITIS OPHTHA LMIC ACTIVE 01/03/2026 [id number] 5 JESU ESPINOZA ISTEL G 2024 7.5 [facility] OXYBUTYNIN CL 10MG TAB,SA TAKE ONE TABLET BY MOUTH ONCE A DAY FOR OVERACTI VE BLADDER SWALLOW WHOLE, DO NOT CRUSH OR CHEW. ORAL ACTIVE 07/27/2025 [id number] 5 JESU ESPINOZA ISTEL G [address] [place] [address] [facility]OC PANTOPRAZOL E NA 40MG TAB,EC TAKE ONE TABLET BY MOUTH EVERY MORNING BEFORE A MEAL FOR GASTROES OPHAGEAL REFLUX DISEASE TAKE 30 MINUTES BEFORE MEAL(S) ORAL ACTIVE 12/09/2025 [id number] 5 JESU ESPINOZA ISTEL G [address] [place] [address] [facility] PANTOPRAZOL E NA 40MG TAB,EC TAKE ONE TABLET BY MOUTH EVERY MORNING BEFORE A MEAL TO LOWER STOMACH ACID - TAKE 30 MINUTES BEFORE MEAL(S) ORAL 10/12/2024 [id number] 5 DIANNE WAGNER [address] [place] [address] [facility] PROPYLENE GLYCOL 0.6% (PF) SOLN,OPH INSTILL 2 DROPS IN AFFECTED EYE(S) THREE TIMES A DAY NEEDED FOR DRY EYE(S) (SHAKE WELL) OPHTHA LMIC ACTIVE 01/03/2026 [id number] 5 JESU ESPINOZA ISTEL G 2024 30 [facility] ROSUVASTATI N CA 20MG TAB TAKE ONE-HALF TABLET BY MOUTH EVERY EVENING TO LOWER CHOLESTE ROL ORAL SUSPEND ED 07/19/2025 [id number] 5 ESPINOZAJESU ISTEL G [address] [place] [address] [facility] ROSUVASTATI N CA 20MG TAB TAKE ONE-HALF TABLET BY MOUTH EVERY EVENING TO LOWER CHOLESTE ROL ORAL DISCONT INUED 10/12/2024 [id number] 5 DIANNE WAGNER [address] [place] [address] [facility] ROSUVASTATI N CA 20MG TAB TAKE ONE-HALF TABLET BY MOUTH EVERY EVENING TO LOWER CHOLESTE ROL ORAL DISCONT INUED 10/12/2024 [id number] 4 DIANNE WAGNER 2023 45 [facility] TAMSULOSIN HCL 0.4MG CAP TAKE TWO CAPSULES BY MOUTH EVERY EVENING APPROXIM ATELY 30 MINUTES AFTER THE SAME MEAL EACH DAY (FOR PROSTATE ) ORAL ACTIVE 11/09/2025 [id number] 5 JESU ESPINOZA G 2024 180 [facility] TAMSULOSIN HCL 0.4MG CAP TAKE TWO CAPSULES BY MOUTH EVERY EVENING APPROXIM ATELY 30 MINUTES AFTER THE SAME MEAL EACH DAY (FOR PROSTATE ) ORAL DISCONT INUED 10/12/2024 [id number] 5 KRISTY DIANNE Samra 2023 180 [facility] Immunizations Combined list of available immunizations from the Department of Defense and Veterans Affairs facilities. Immunization Series Date Given Administered By Site Reaction Lot Number CVX Code Drug Nurse Practitioner Status Comments Source COVID-19 (MODERNA), MRNA, LNP-S, PF, 50 MCG/0.5 ML (AGES 12+ YEARS) 2024 LINETTE DANIELSON RIGHT DELTO ID [id number] 312 complet ed [facility] INFLUENZA, HIGH-DOSE, TRIVALENT, PF 2023 AIDEE LIPSCOMB LEFT DELTO ID [id number] 135 complet ed [facility] ZOSTER RECOMBINANT 2023 DARRIN ANDERSON LEFT DELTO ID [id number] 187 complet ed [facility] COVID-19 (MODERNA), MRNA, LNP-S, PF, 50 MCG/0.5 ML (AGES 12+ YEARS) 1 2022 DARRIN ANDERSON RIGHT DELTO ID [id number] 312 complet ed [facility] INFLUENZA, INJECTABLE, QUADRIVALENT, PRESERVATIVE FREE 2022 DARRIN ANDERSON LEFT DELTO ID [id number] 150 complet ed [facility] INFLUENZA, INJECTABLE, QUADRIVALENT, PRESERVATIVE FREE 2021 AIDEE LIPSCOMB RIGHT DELTO ID [id number] 150 complet ed Completed Series, [facility] INFLUENZA, INJECTABLE, QUADRIVALENT, PRESERVATIVE FREE 2020 150 complet ed [facility] COVID-19 (MODERNA), MRNA, LNP-S, PF, 100 MCG/0.5ML DOSE OR 50 MCG/0.25ML DOSE 2 2020 207 complet ed HISTORICA L INFORMATI ON - FROM OTHER REGISTRY, [facility] ZOSTER RECOMBINANT 2 2020 187 complet ed [facility] COVID-19 (MODERNA), MRNA, LNP-S, PF, 100 MCG/0.5ML DOSE OR 50 MCG/0.25ML DOSE 1 2020 207 complet ed HISTORICA L INFORMATI ON - FROM PATIENT'S WRITTEN RECORD, Lot#: [id number] [facility] COVID-19 (MODERNA), MRNA, LNP-S, PF, 100 MCG/0.5ML DOSE OR 50 MCG/0.25ML DOSE 1 2020 207 complet ed HISTORICA L INFORMATI ON - FROM OTHER REGISTRY, [facility] ZOSTER RECOMBINANT 1 2020 187 complet ed [place] [facility] INFLUENZA, INJECTABLE, QUADRIVALENT, PRESERVATIVE FREE 2018 150 complet ed [place] [facility] INFLUENZA, HIGH-DOSE, TRIVALENT, PF 1 2017 135 complet ed HISTORICA L INFORMATI ON - FROM OTHER REGISTRY, [facility] TDAP 2017 115 complet ed [place] [facility] INFLUENZA, SEASONAL, INJECTABLE, PRESERVATIVE FREE 2016 140 complet ed Right Deltoid [place] [facility] PNEUMOCOCCAL POLYSACCHARID E [id number] 2016 33 complet ed [facility] INFLUENZA, SEASONAL, INJECTABLE, PRESERVATIVE FREE 2016 140 complet ed [facility] PNEUMOCOCCAL CONJUGATE PCV 13 2014 133 complet ed [place] [facility] INFLUENZA, UNSPECIFIED FORMULATION 2013 88 complet ed [place] [facility] INFLUENZA, UNSPECIFIED FORMULATION 2012 88 complet ed [place] [facility] PNEUMOCOCCAL, UNSPECIFIED FORMULATION 2012 109 complet ed [place] [facility] INFLUENZA, UNSPECIFIED FORMULATION 2010 88 complet ed [facility] INFLUENZA, UNSPECIFIED FORMULATION 2006 88 complet ed [facility] Results Combined list of recent chemistry, hematology and other laboratory results from Department of Defense and Veterans Affairs, ranging from 15 months to all on record, depending upon the facility. Order Name Results Value Reference Range Date Interpretation Specimen Comments Source HGA1C HEMOGLOBIN A1C/HEMOGLOBI N.TOTAL IN BLOOD 8.0 4.0 - 6.0 12/01 H Specimen Type: BLOOD No comment entered. Ordering Provider: JESU ESPINOZA Report Released Date/Time : Jun 23, 2024 10:52 AM Reporting Lab: [place] [facility] [address] [place] [address] Performin g Lab: [place] [facility] [address] [place] [address] [facility] BASIC METABOLIC PANEL CREATININE [MASS/VOLUME] IN SERUM OR PLASMA 1.28 mg/dL 0.7 - 1.3 12/01 Specimen Type: PLASMA No comment entered. Ordering Provider: JESU ESPINOZA Report Released Date/Time : Jun 23, 2024 10:52 AM Reporting Lab: [place] [facility] [address] [place] [address] Performin g Lab: [place] [facility] [address] [place] [address] [facility] BASIC METABOLIC PANEL UREA NITROGEN [MASS/VOLUME] IN SERUM OR PLASMA 20 mg/dL 9 - 25 12/01 Specimen Type: PLASMA No comment entered. Ordering Provider: JESU ESPINOZA Report Released Date/Time : Jun 23, 2024 10:52 AM Reporting Lab: [place] [facility] [address] [place] [address] Performin g Lab: [place] [facility] [address] [place] [address] [facility] BASIC METABOLIC PANEL GLUCOSE [MASS/VOLUME] IN SERUM OR PLASMA 161 mg/dL 72 - 99 12/01 H Specimen Type: PLASMA No comment entered. Ordering Provider: JESU ESPINOZA Report Released Date/Time : Jun 23, 2024 10:52 AM Reporting Lab: [place] [facility] [address] [place] [address] Performin g Lab: [place] [facility] [address] [place] [address] [place] [facility] BASIC METABOLIC PANEL SODIUM [MOLES/VOLUME ] IN SERUM OR PLASMA 141 meq/L 136 - 145 12/01 Specimen Type: PLASMA No comment entered. Ordering Provider: JESU ESPINOZA Report Released Date/Time : Jun 23, 2024 10:52 AM Reporting Lab: [place] [facility] [address] [place] [address] Performin g Lab: [place] [facility] [address] [place] [address] [facility] BASIC METABOLIC PANEL POTASSIUM [MOLES/VOLUME ] IN SERUM OR PLASMA 4.1 meq/L 3.5 - 5 12/01 Specimen Type: PLASMA No comment entered. Ordering Provider: JESU ESPINOZA Report Released Date/Time : Jun 23, 2024 10:52 AM Reporting Lab: [place] [facility] [address] [place] [address] Performin g Lab: [place] [facility] [address] [place] [address] [facility] BASIC METABOLIC PANEL CHLORIDE [MOLES/VOLUME ] IN SERUM OR PLASMA 102 meq/L 98 - 107 12/01 Specimen Type: PLASMA No comment entered. Ordering Provider: JESU ESPINOZA Report Released Date/Time : Jun 23, 2024 10:52 AM Reporting Lab: [place] [facility] [address] [place] [address] Performin g Lab: [place] [facility] [address] [place] [address] [facility] BASIC METABOLIC PANEL CARBON DIOXIDE, TOTAL [MOLES/VOLUME ] IN SERUM OR PLASMA 28 meq/L 22 - 31 12/01 Specimen Type: PLASMA No comment entered. Ordering Provider: JESU ESPINOZA Report Released Date/Time : Jun 23, 2024 10:52 AM Reporting Lab: [place] [facility] [address] [place] [address] Performin g Lab: [place] [facility] [address] [place] [address] [facility] BASIC METABOLIC PANEL CALCIUM [MASS/VOLUME] IN SERUM OR PLASMA 9.7 mg/dL 8.4 - 10.4 12/01 Specimen Type: PLASMA No comment entered. Ordering Provider: JESU ESPINOZA Report Released Date/Time : Jun 23, 2024 10:52 AM Reporting Lab: [place] [facility] [address] [place] [address] Performin g Lab: [place] [facility] [address] [place] [address] [facility] BASIC METABOLIC PANEL GLOMERULAR FILTRATION RATE/1.73 SQ M.PREDICTED [VOLUME RATE/AREA] IN SERUM, PLASMA OR BLOOD BY CREATININE-BA SED FORMULA (CKD-EPI 2020) 57 12/01 Specimen Type: PLASMA No comment entered. Ordering Provider: JESU ESPINOZA Report Released Date/Time : Jun 23, 2024 10:52 AM Reporting Lab: [place] [facility] [address] [place] [address] Performin g Lab: [place] [facility] [address] [place] [address] [facility] CREATININE( EGFR) CREATININE [MASS/VOLUME] IN SERUM OR PLASMA 1.29 mg/dL 0.7 - 1.3 12/01 Specimen Type: PLASMA No comment entered. Ordering Provider: WALE NICHOLAS Report Released Date/Time : November 14, 2024 12:40 PM Reporting Lab: [place] [facility] [address] [place] [address] Performin g Lab: [place] [facility] [address] [place] [address] [place] [facility] CREATININE( EGFR) GLOMERULAR FILTRATION RATE/1.73 SQ M.PREDICTED [VOLUME RATE/AREA] IN SERUM, PLASMA OR BLOOD BY CREATININE-BA SED FORMULA (CKD-EPI 2020) 57 12/01 Specimen Type: PLASMA No comment entered. Ordering Provider: WALE NICHOLAS Report Released Date/Time : November 14, 2024 12:40 PM Reporting Lab: [place] [facility] [address] [place] [address] Performin g Lab: [place] [facility] [address] [place] [address] [place] [facility] HGB,HCT,PLT HEMOGLOBIN [MASS/VOLUME] IN BLOOD 12.5 g/dL 13.1 - 16.8 12/01 L Specimen Type: BLOOD No comment entered. Ordering Provider: WALE NICHOLAS Report Released Date/Time : November 14, 2024 12:40 PM Reporting Lab: [place] [facility] [address] [place] [address] Performin g Lab: [place] [facility] [address] [place] [address] [place] [facility] HGB,HCT,PLT HEMATOCRIT [VOLUME FRACTION] OF BLOOD 40.2 38.2 - 48.4 12/01 Specimen Type: BLOOD No comment entered. Ordering Provider: WALE NICHOLAS Report Released Date/Time : November 14, 2024 12:40 PM Reporting Lab: [place] [facility] [address] [place] [address] Performin g Lab: [place] [facility] [address] [place] [address] [place] [facility] HGB,HCT,PLT PLATELETS [#/VOLUME] IN BLOOD BY AUTOMATED COUNT 232 10*3/u L 150 - 400 12/01 Specimen Type: BLOOD No comment entered. Ordering Provider: WALE NICHOLAS Report Released Date/Time : November 14, 2024 12:40 PM Reporting Lab: [place] [facility] [address] [place] [address] Performin g Lab: [place] [facility] [address] [place] [address] [place] [facility] B12 COBALAMIN (VITAMIN B12) [MASS/VOLUME] IN SERUM OR PLASMA 328 pg/mL 213 - 816 06/15 Specimen Type: SERUM No comment entered. Ordering Provider: JESU ESPINOZA Report Released Date/Time : Jun 15, 2024 11:17 AM Reporting Lab: [place] [facility] [address] [place] [address] Performin g Lab: [place] [facility] [address] [place] [address] 8 [facility] FOLATE (PB) FOLATE [MASS/VOLUME] IN SERUM OR PLASMA 4.3 ng/mL 7 - 20 06/15 L Specimen Type: SERUM No comment entered. Ordering Provider: JESU ESPINOZA Report Released Date/Time : Jun 15, 2024 11:17 AM Reporting Lab: [place] [facility] [address] [place] [address] 8 Performin g Lab: [place] [facility] [address] [place] [address] 8 [facility] HGA1C HEMOGLOBIN A1C/HEMOGLOBI N.TOTAL IN BLOOD 7.3 4.0 - 6.0 06/15 H Specimen Type: BLOOD No comment entered. Ordering Provider: JESU ESPINOZA Report Released Date/Time : Jun 15, 2024 11:17 AM Reporting Lab: [place] [facility] [address] [place] [address] Performin g Lab: [place] [facility] [address] [place] [address] 8 [facility] COMPREHENSI VE METABOLIC PANEL CREATININE [MASS/VOLUME] IN SERUM OR PLASMA 2.03 mg/dL 0.7 - 1.3 06/15 H Specimen Type: PLASMA No comment entered. Ordering Provider: JESU ESPINOZA Report Released Date/Time : Jun 15, 2024 11:17 AM Reporting Lab: [place] [facility] [address] [place] [address] 8 Performin g Lab: [place] [facility] [address] [place] [address] 8 [facility] COMPREHENSI VE METABOLIC PANEL UREA NITROGEN [MASS/VOLUME] IN SERUM OR PLASMA 25 mg/dL - 06/15 Specimen Type: PLASMA No comment entered. Ordering Provider: JESU ESPINOZA Report Released Date/Time : Jun 15, 2024 11:17 AM Reporting Lab: [place] [facility] [address] [place] [address] 8 Performin g Lab: [place] [facility] [address] [place] [address] [facility] COMPREHENSI VE METABOLIC PANEL GLUCOSE [MASS/VOLUME] IN SERUM OR PLASMA 106 mg/dL 72 - 99 06/15 H Specimen Type: PLASMA No comment entered. Ordering Provider: JESU ESPINOZA Report Released Date/Time : Jun 15, 2024 11:17 AM Reporting Lab: [place] [facility] [address] [place] [address] Performin g Lab: [place] [facility] [address] [place] [address] 8 [facility] COMPREHENSI VE METABOLIC PANEL SODIUM [MOLES/VOLUME ] IN SERUM OR PLASMA 137 meq/L 136 - 145 06/15 Specimen Type: PLASMA No comment entered. Ordering Provider: JESU ESPINOZA Report Released Date/Time : Jun 15, 2024 11:17 AM Reporting Lab: [place] [facility] [address] [place] [address] 8 Performin g Lab: [place] [facility] [address] [place] [address] 8 [facility] COMPREHENSI VE METABOLIC PANEL POTASSIUM [MOLES/VOLUME ] IN SERUM OR PLASMA 4.7 meq/L 3.5 - 5 06/15 Specimen Type: PLASMA No comment entered. Ordering Provider: JESU ESPINOZA Report Released Date/Time : Jun 15, 2024 11:17 AM Reporting Lab: [place] [facility] [address] [place] [address] Performin g Lab: [place] [facility] [address] [place] [address] 8 [facility] COMPREHENSI VE METABOLIC PANEL CHLORIDE [MOLES/VOLUME ] IN SERUM OR PLASMA 101 meq/L 98 - 107 06/15 Specimen Type: PLASMA No comment entered. Ordering Provider: JESU ESPINOZA Report Released Date/Time : Jun 15, 2024 11:17 AM Reporting Lab: [place] [facility] [address] [place] [address] 8 Performin g Lab: [place] [facility] [address] [place] [address] 8 [facility] COMPREHENSI VE METABOLIC PANEL CARBON DIOXIDE, TOTAL [MOLES/VOLUME ] IN SERUM OR PLASMA 26 meq/L 22 - 31 06/15 Specimen Type: PLASMA No comment entered. Ordering Provider: JESU ESPINOZA Report Released Date/Time : Jun 15, 2024 11:17 AM Reporting Lab: [place] [facility] [address] [place] [address] 8 Performin g Lab: [place] [facility] [address] [place] [address] 8 [facility] COMPREHENSI VE METABOLIC PANEL CALCIUM [MASS/VOLUME] IN SERUM OR PLASMA 9.5 mg/dL 8.4 - 10.4 06/15 Specimen Type: PLASMA No comment entered. Ordering Provider: JESU ESPINOZA Report Released Date/Time : Jun 15, 2024 11:17 AM Reporting Lab: [place] [facility] [address] [place] [address] 8 Performin g Lab: [place] [facility] [address] [place] [address] 8 [facility] COMPREHENSI VE METABOLIC PANEL PROTEIN [MASS/VOLUME] IN SERUM OR PLASMA 7.4 g/dL 6 - 8.6 06/15 Specimen Type: PLASMA No comment entered. Ordering Provider: JESU ESPINOZA Report Released Date/Time : Jun 15, 2024 11:17 AM Reporting Lab: [place] [facility] [address] [place] [address] Performin g Lab: [place] [facility] [address] [place] [address] 8 [facility] COMPREHENSI VE METABOLIC PANEL ALBUMIN [MASS/VOLUME] IN SERUM OR PLASMA 4.1 g/dL 3.4 - 5 06/15 Specimen Type: PLASMA No comment entered. Ordering Provider: JESU ESPINOZA Report Released Date/Time : Jun 15, 2024 11:17 AM Reporting Lab: [place] [facility] [address] [place] [address] Performin g Lab: [place] [facility] [address] [place] [address] 8 [facility] COMPREHENSI VE METABOLIC PANEL BILIRUBIN.TOT AL [MASS/VOLUME] IN SERUM OR PLASMA 0.4 mg/dL 0.2 - 1.2 06/15 Specimen Type: PLASMA No comment entered. Ordering Provider: JESU ESPINOZA Report Released Date/Time : Jun 15, 2024 11:17 AM Reporting Lab: [place] [facility] [address] [place] [address] Performin g Lab: [place] [facility] [address] [place] [address] [facility] COMPREHENSI VE METABOLIC PANEL ALKALINE PHOSPHATASE [ENZYMATIC ACTIVITY/VOLU ME] IN SERUM OR PLASMA 60 U/L 40 - 150 06/15 Specimen Type: PLASMA No comment entered. Ordering Provider: JESU ESPINOZA Report Released Date/Time : Jun 15, 2024 11:17 AM Reporting Lab: [place] [facility] [address] [place] [address] 8 Performin g Lab: [place] [facility] [address] [place] [address] [facility] COMPREHENSI VE METABOLIC PANEL ASPARTATE AMINOTRANSFER ASE [ENZYMATIC ACTIVITY/VOLU ME] IN SERUM OR PLASMA 13 U/L 5 - 34 06/15 Specimen Type: PLASMA No comment entered. Ordering Provider: JESU ESPINOZA Report Released Date/Time : Jun 15, 2024 11:17 AM Reporting Lab: [place] [facility] [address] [place] [address] Performin g Lab: [place] [facility] [address] [place] [address] 8 [facility] COMPREHENSI VE METABOLIC PANEL ALANINE AMINOTRANSFER ASE [ENZYMATIC ACTIVITY/VOLU ME] IN SERUM OR PLASMA 11 U/L 8 - 40 06/15 Specimen Type: PLASMA No comment entered. Ordering Provider: JESU ESPINOZA Report Released Date/Time : Jun 15, 2024 11:17 AM Reporting Lab: [place] [facility] [address] [place] [address] 8 Performin g Lab: [place] [facility] [address] [place] [address] 8 [facility] COMPREHENSI VE METABOLIC PANEL GLOMERULAR FILTRATION RATE/1.73 SQ M.PREDICTED [VOLUME RATE/AREA] IN SERUM, PLASMA OR BLOOD BY CREATININE-BA SED FORMULA (CKD-EPI 2020) 33 06/15 Specimen Type: PLASMA No comment entered. Ordering Provider: JESU ESPINOZA Report Released Date/Time : Jun 15, 2024 11:17 AM Reporting Lab: [place] [facility] [address] [place] [address] Performin g Lab: [place] [facility] [address] [place] [address] [facility] VITAMIN D, 25-HYDROXY 25-HYDROXYVIT MATTHEW D3 [MASS/VOLUME] IN SERUM OR PLASMA 43.1 ng/mL 30 - 96 06/15 Specimen Type: SERUM No comment entered. Ordering Provider: JESU ESPINOZA Report Released Date/Time : Jun 15, 2024 11:17 AM Reporting Lab: [place] [facility] [address] [place] [address] Performin g Lab: [place] [facility] [address] [place] [address] [facility] TSH (MA-PB) THYROTROPIN [UNITS/VOLUME ] IN SERUM OR PLASMA 1.282 u[IU]/ mL 0.47 - 5 06/15 Specimen Type: SERUM No comment entered. Ordering Provider: JESU ESPINOZA Report Released Date/Time : Jun 15, 2024 11:17 AM Reporting Lab: [place] [facility] [address] [place] [address] Performin g Lab: [place] [facility] [address] [place] [address] [facility] Vital Signs Combined list of inpatient and outpatient Vital Signs from Department of Defense and Veterans Affairs, ranging from 12 months to all on record, depending upon the facility. Vital Sign Value Date Comments Source SYSTOLIC BLOOD PRESSURE 155 01/02/2025 13:01:00 [facility] DIASTOLIC BLOOD PRESSURE 69 01/02/2025 13:01:00 [facility] PULSE OXIMETRY 94 % 01/02/2025 13:01:00 [place] [facility] TEMPERATURE 97.8 01/02/2025 13:01:00 [facility] PULSE 68 01/02/2025 13:01:00 [facility] SYSTOLIC BLOOD PRESSURE 130 11/09/2024 11:45:00 [facility] DIASTOLIC BLOOD PRESSURE 62 11/09/2024 11:45:00 [facility] PULSE OXIMETRY 95 11/09/2024 11:45:00 [facility] [place] [facility] WEIGHT 328.9 11/09/2024 11:45:00 [facility] [place] [facility] BMI 58 kg/m2 11/09/2024 11:45:00 [facility] PAIN 5 11/09/2024 11:45:00 [facility] TEMPERATURE 97.9 11/09/2024 11:45:00 [facility] PULSE 69 11/09/2024 11:45:00 [facility] RESPIRATION 20 11/09/2024 11:45:00 [facility] SYSTOLIC BLOOD PRESSURE 147 09/27/2024 11:34:00 [facility] DIASTOLIC BLOOD PRESSURE 74 09/27/2024 11:34:00 [facility] PULSE OXIMETRY 96 09/27/2024 11:34:00 [facility] WEIGHT 331.3 09/27/2024 11:34:00 [facility] [place] [facility] BMI 59 kg/m2 09/27/2024 11:34:00 [facility] [place] [facility] PAIN 8 09/27/2024 11:34:00 [facility] TEMPERATURE 98.0 09/27/2024 11:34:00 [facility] PULSE 61 09/27/2024 11:34:00 [facility] RESPIRATION 20 09/27/2024 11:34:00 [facility] SYSTOLIC BLOOD PRESSURE 126 08/09/2024 15:27:00 [facility] [facility] DIASTOLIC BLOOD PRESSURE 69 08/09/2024 15:27:00 [facility] [place] [facility] PULSE OXIMETRY 95 08/09/2024 15:27:00 [place] [facility] WEIGHT 326.6 08/09/2024 15:27:00 [facility] [place] [facility] BMI 58 kg/m2 08/09/2024 15:27:00 [place] [facility] PAIN 2 08/09/2024 15:27:00 [place] [place] [facility] TEMPERATURE 98.2 08/09/2024 15:27:00 [facility] PULSE 71 08/09/2024 15:27:00 [facility] [place] [facility] RESPIRATION 20 08/09/2024 15:27:00 [facility] [place] [facility] SYSTOLIC BLOOD PRESSURE 124 06/15/2024 11:34:00 [facility] [place] [place] [facility] DIASTOLIC BLOOD PRESSURE 71 06/15/2024 11:34:00 [facility] [place] [facility] PULSE OXIMETRY 96 06/15/2024 11:34:00 [place] [facility] WEIGHT 317.8 06/15/2024 11:34:00 [place] [facility] BMI 56 kg/m2 06/15/2024 11:34:00 [place] [facility] PAIN 8 06/15/2024 11:34:00 [place] [facility] TEMPERATURE 98.0 06/15/2024 11:34:00 [place] [facility] PULSE 58 06/15/2024 11:34:00 [place] [facility] RESPIRATION 18 06/15/2024 11:34:00 [place] [facility] Encounters Combined list of: 1) Encounters from Department of Veterans Affairs facilities going backup to the last 18 months, not all VA inpatient encounters are included; 2) Encounters from the Department of Defense facilities going backup to 280 months. Location Location Details Encounter Type Encounter Number Reason For Visit Attending Provider ADM Date DC Date Status Disposition Source [facility] Outpatient Encounter [id number] 08/31 [place] [facility] Outpatient Encounter [id number] [facility] CONT AIRWAY PRESSURE DEVICE [id number] Diagnos is: ICD-10- CM J44.9 Chronic obstruc tive pulmona ry disease , unspeci fied MEERA SAUCEDO 09/09 [place] [facility] Outpatient Encounter [id number] 09/13 [facility] Outpatient Encounter [id number] [facility] Encounter [id number] 09/27 [facility] Outpatient Encounter [id number] 10/06 [facility] [place] [facility] Outpatient Encounter [id number] ZACH BLOUNT 10/11 [place] [facility] Outpatient Encounter [id number] 10/19 [facility] Outpatient Encounter [id number] 10/20 [facility] Outpatient Encounter [id number] 10[facility]20 [facility] Encounter [id number] 10/20 [facility] Outpatient Encounter [id number] Lucretia HERNÁNDEZ 10/25 [place] [facility] Outpatient Encounter [id number] 10/26 [facility] OFFICE O/P EST LOW 20 MIN [id number] Diagnos is: ICD-10- CM N40.1 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 Outpatient Encounter [id number] 10/26 [facility] Outpatient Encounter [id number] 11/01 [facility] En[facility] [id number] 11/05 [place] [facility] [place] [facility] Outpatient Encounter [id number] NICK KIRK 11/08 [place] [facility] Outpatient Encounter [id number] 11/16 [facility] MTMS BY PHARM EST 15 MIN [id number] Diagnos is: ICD-10- CM Z51.81 Encount er for therape utic drug level monitor WALE Frazier 12[facility]13 [facility] En[facility] [id number] LUÍS BROWN 12/13 [facility] Outpatient Encounter [id number] 01/11 [facility] Outpatient Encounter [id number] 01/12 [facility] Outpatient Encounter [id number] 01/17 [facility] Outpatient Encounter [id number] 02/16 [facility] Outpatient Encounter [id number] 02/16 [facility] Outpatient Encounter [id number] 02/16 [facility] Outpatient Encounter [id number] 02/22 [facility] Outpatient Encounter [id number] RADHA PATIÑO 02/22 [facility] OFF/OP EST NOVEMBER X REQ PHY/QHP [id number] Diagnos is: ICD-10- CM M79.641 Pain in right hand Lewis HERNÁNDEZ 02/22 [facility] Outpatient Encounter [id number] 02/24 [facility] [place] [facility] En[facility] [id number] 03/08 [place] [facility] TELEHEALTH FACILITY FEE [id number] Diagnos is: ICD-10- CM Z46.1 Encount er for fitting and adjustm ent of hearing aid [place] Lucretia 03/09 [facility] HE[facility]PA[facility]/MOD IFYING [id number] Diagnos is: ICD-10- CM Z46.1 Encount er for fitting and adjustm ent of hearing aid [place] A 03/09 [facility] Outpatient Encounter [id number] 03/17 [facility] Encounter [id number] 03/23 [facility] Outpatient Encounter [id number] 04/05 [facility] Outpatient Encounter [id number] 04/21 [facility] OFF/OP EST NOVEMBER X REQ PHY/QHP [id number] Diagnos is: ICD-10- CM Z23 Encount er for immuniz atFAWAD Pink R 04/21 [facility] Out[facility] Encounter [id number] 04/26 [facility] Outpatient Encounter [id number] 04/28 [facility] Outpatient Encounter [id number] 05/03 [facility] TELEHEALTH FACILITY FEE [id number] Diagnos is: ICD-10- CM H93.13 Tinnitu s, bilater al [place] A 05/05 [facility] HEARING AID REPAIR/MOD IFYING [id number] Diagnos is: ICD-10- CM H93.13 Tinnitu s, bilater al [place] A 05/05 [place] [place] [facility] SPECIAL SUPPLIES PHYS/QHP [id number] Diagnos is: ICD-10- CM G47.33 Obstruc tive sleep apnea (adult) (pediat michael) ZIYAD AVERY HELLE B 05/06 [place] [facility] Outpatient Encounter [id number] 05/12 [facility] Encounter [id number] 05/31 [facility] OFFICE O/P EST MOD 30 MIN [id number] Diagnos is: ICD-10- CM N39.0 Urinary tract infecti on, site not specifi ed AD ESPINOZA 06/06 [facility] [place] [facility] Outpatient Encounter [id number] 06/13 [place] [facility] OFFICE O/P EST MOD 30 MIN [id number] Diagnos is: ICD-10- CM Z00.01 Encount er for general adult medical exam w abnorma l finding s AD ESPINOZA G 06/15 [facility] TELEHEALTH FACILITY FEE [id number] Diagnos is: ICD-10- CM Z46.1 Encount er for fitting and adjustm ent of hearing aid [place] A 06/15 [facility] [place] [facility] CONFORMITY EVALUATION [id number] Diagnos is: ICD-10- CM Z46.1 Encount er for fitting and adjustm ent of hearing aid [place] A 06/15 [place] [facility] Outpatient Encounter [id number] 06/17 [facility] Outpatient Encounter [id number] 06/21 [facility] Outpatient Encounter [id number] 06/23 [facility] [place] [facility] Outpatient Encounter [id number] 06/28 [place] [facility] Outpatient Encounter [id number] 07/04 [facility] Outpatient Encounter [id number] 08/09 [facility] Outpatient Encounter [id number] 08/09 [facility] OFFICE O/P EST MOD 30 MIN [id number] Diagnos is: ICD-10- CM Z09 Encntr for f/u exam aft trtmt for cond oth than brianig AD Kumar G 08/09 [facility] Outpatient Encounter [id number] 08/15 [facility] Outpatient Encounter [id number] 08/19 [facility] Outpatient Encounter [id number] 08/19 [facility] Outpatient Encounter [id number] 09/05 [facility] [place] Outpatient Encounter [id number] 09/05 [facility] Outpatient Encounter [id number] 09/27 [facility] OFFICE O/P EST MOD 30 MIN [id number] Diagnos is: ICD-10- CM M25.572 Pain in left ankle and joints of left foot ESPINOZA,KRDenny COPELAND G 09/27 [facility] Outpatient Encounter [id number] 09/28 [facility] Outpatient Encounter [id number] 10/10 [facility] Outpatient Encounter [id number] 10/21 [facility] Outpatient Encounter [id number] 10/31 [facility] Outpatient Encounter [id number] 11/08 [facility] Outpatient Encounter [id number] AD ESPINOZA DINORAH G 11/09 [facility] OFFICE O/P EST MOD 30 MIN [id number] Diagnos is: ICD-10- CM I50.31 Acute diastol ic (conges tive) heart failure AD ESPINOZA G 11/09 [facility] Outpatient Encounter [id number] 11/09 [place] [facility] Outpatient Encounter [id number] 11/10 [facility] Outpatient Encounter [id number] 11/11 [facility] Outpatient Encounter [id number] 11/11 [facility] Outpatient Encounter [id number] [id number] 11/14 [facility] Outpatient Encounter [id number] [id number] 11/16 [facility] Outpatient Encounter [id number] KILO ANDERSON 11/18 [facility] MTMS BY PHARM EST 15 MIN [id number] Diagnos is: ICD-10- CM Z51.81 Encount er for therape utic drug level monitor WALE Frazier 12/01 [facility] Outpatient Encounter [id number] 12/05 [facility] Outpatient Encounter [id number] 12/06 [facility] POS AIRWAY PRESSURE CPAP [id number] [id number] Diagnos is: ICD-10- CM G47.33 Obstruc tive sleep apnea (adult) (pediat michael) VALENTINA BRAVO 12/08 [facility] Outpatient Encounter [id number] 12/15 [facility] Outpatient Encounter [id number] 12/16 [facility] Outpatient Encounter [id number] [id number] 12/19 [facility] Outpatient Encounter 74771-2.65 [id number] 12/19 [facility] [facility] Outpatient Encounter [id number] 12/23 [facility] Outpatient Encounter [id number] 12/29 [facility] Outpatient Encounter [id number] 12/30 [facility] OFF/OP EST NOVEMBER X REQ PHY/QHP [id number] Diagnos is: ICD-10- CM H10.89 Other conjunc tivitis GAYLE DANIELSON 01/02 [facility] OFFICE O/P EST MOD 30 MIN [id number] Diagnos is: ICD-10- CM H10.89 Other conjunc tivitis AD ESPINOZA 01/02 [facility] En[facility] [id number] 01/03 [facility] Outpatient Encounter [id number] 01/04 [facility] Outpatient Encounter [id number] 01/05 [facility] Outpatient Encounter [id number] LUÍS BROWN 01/05 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 Encounter [id number] 01/16 [facility] Encounter [id number] 01/17 [facility] Outpatient Encounter [id number] 02/17 [facility] Outpatient Encounter [id number] 02/20 [facility] Outpatient Encounter [id number] ALBA SAUCEDO L 02/22 [facility] Outpatient Encounter [id number] 02/24 [facility] Social History Combined list of available smoking, tobacco, and other social history from Department of Defense and Veterans Affairs facilities. Social History Type Response Date Comment Sourc e Tobacco smoking status NHIS VA-TOBACCO USE FORMER CIGARETTES 06/06/2024 [facility] History of tobacco use VA-TOBACCO NEVER USED OTHER TYPE 06/06/2024 [facility] History of tobacco use VA-TOBACCO FORMER USER 06/01/2023 [facility] History of tobacco use VA-TOBACCO FORMER USER 11/14/2021 [facility] History of tobacco use VA-TOBACCO FORMER USER 11/15/2020 [facility] History of tobacco use VA-TOBACCO FORMER USER 02/23/2019 [facility] History of tobacco use QUIT TOBACCO >7 YEARS AGO 02/25/2018 [facility] History of tobacco use QUIT TOBACCO >7 YEARS AGO 12/21/2017 [facility] History of tobacco use QUIT TOBACCO >7 YEARS AGO 10/14/2017 [facility] History of tobacco use QUIT TOBACCO >7 YEARS AGO 03/23/2017 [facility] History of tobacco use TOBACCO OFFERED PT MEDS (PROVIDER) 09/05/2010 [facility] History of tobacco use QUIT TOBACCO >7 YEARS AGO 12/27/2009 [facility] History of tobacco use QUIT TOBACCO >7 YEARS AGO 10/29/2007 [facility] Plan of Care List of future care activities from Department of Veterans Affairs facilities. Additional future care activities may be listed in the Assessment and Plan section. Date/Time Care Activity Care Activity Detail Facili ty 03/30/2025 AMBULATORY - MEDICINE AMBULATORY - MEDICI [facility]
--- OUTSIDE RECORDS SUMMARY | 2025-02-27 09:00 | XMS_ITS | Patient Health Record ---
Author Organization [facility] Address [address] [place] [address] Care Team Providers Care Financial Data Analyst Name Role Phone [facility] Primary Care Provider Un available Brando Michelle Unavailable [phone] Migration, Provider Unavailable Unavailable Allergies No Known Allergies Reason For Referral No Information Medications Medication SIG (Take, Route, Frequency, Duration) Notes Start Date End Date Status Metoprolol Tartrate 50 MG Oral Tablet Metoprolol Tartrate 50 MG Oral Tablet 07/17/2016 Active Metoclopramide 10 MG Oral Tablet Metoclopramide 10 MG Oral Tablet 12/16/2017 Not-Taking ferrous gluconate 324 MG Oral Tablet ferrous gluconate 324 MG Oral Tablet 07/17/2016 Active Tamsulosin HCl 0.4 MG Capsule 1 capsule Orally Once a day Active Finasteride 5 MG Tablet 1 tablet Orally Once a day 02/17/2024 Active Ferrous Sulfate 325 (65 Fe) MG Tablet 1 tablet Orally Three times a Week Active Eliquis 5 MG Tablet as directed Orally Active pantoprazole 40 MG Enteric Coated Tablet pantoprazole 40 MG Enteric Coated Tablet 07/17/2016 Active Rosuvastatin Calcium 10 MG Tablet 1 tablet Orally Once a day 02/17/2024 Active Nystatin 391692 UNIT/GM Ointment 1 application Externally three times a day as needed 02/17/2024 Active Isosorbide Mononitrate ER 30 MG Tablet Extended Release 24 Hour 1 tablet in the morning Orally Once a day Active Furosemide 20 MG Tablet 1 tablet Orally Once a day Active Immunizations Vaccine Route Administration Date Status Comme nts COVID-19 Vaccine (Moderna) Dose #1 Unknown 01/04/2021 A dministered COVID-19 Vaccine (Moderna) Dose #2 Unknown 02/05/2021 A dministered Influenza (whole), CPT 22866 Inactive Unknown 04/16/2017 Administered Influenza, high dose seasonal Unknown 04/07/2018 Admini stered Social History Tobacco Use: Social History Observation Description Date Details (start date - stop date) Former Smoker NA - NA Social History Tobacco Use: Social Info Question Answer Notes Tobacco Control (Standard) Tobacco use: Former smoker How long has it been since you last smoked? Greater than 10 years Additional Details Category Social Info Options Details zzMigrated Social History Migrated Social History Smoking Status:Ex-smoker (finding) Problems Problem Type SNOMED Code ICD Code Onset Dates Problem Status W/U Status Risk Notes Problem Obstructive sleep apnea (17099301) Obstructive sleep apnea (G47.33) Active confirmed Problem Obstructive sleep apnea syndrome (36696009) KIZZY (obstructive sleep apnea) (G47.33) Active confirmed Problem Body mass index 40+ - severely obese (089456735) BMI 50.0-59.9, adult (Z68.43) Active confirmed Problem Body mass index 40+ - severely obese (552015194) BMI 45.0-49.9, adult (Z68.42) Active confirmed Problem Morbid obesity (111275947) Morbid obesity (E66.01) Active confirmed Problem Dependence on biphasic positive airway pressure ventilation (finding) (846310644) BiPAP (biphasic positive airway pressure) dependence (Z99.89) Active confirmed Problem Chronic hypercapnic respiratory failure (305215318) Chronic hypercapnic respiratory failure (J96.12) Active confirmed Problem Tobacco user (565470403) 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) Active confirmed Problem Chronic obstructive pulmonary disease (08276821) Stage 1 mild COPD by GOLD classification (J44.9) Active confirmed Problem Extreme obesity with alveolar hypoventilation (123361116) Obesity hypoventilation syndrome (E66.2) Active confirmed Encounters Encounter Location Date Provider Diagnosis Migrated_Facility 0 0 04/30/2024 Provider Migration Migrated_Facility 0 0 05/01/2024 Provider Migration Plan Of Treatment Pending Test Test Name Order Date Blood Gas Arterial--76172 02/06/2022 Blood Gas Arterial--33974 2022 Insurance Providers Payer Name Payer Address Payer Phone Subscriber Number Group Number Insured Name Patient Relationship to Insured Coverage Start Date Coverage End Date [employer] Medicare Replacement [address] [address] [place] [phone] [id number] MIRNA STUBBS Self - patient is the insured [employer] [address] [place] [phone] [id number] MIRNA STUBBS Self - patient is the insured Medical (General) History Medical History History ICD Code Problem:Esophageal varices (disorder) , Status :: Active Problem:Morbid obesity (disorder) , Stat us :: Active Measles, Mumps, Chicken pox pneumonia arthritis hernia high blood pressure fatty liver sleep apnea rash/skin problems Surgical History Surgery Date(Month/Year) Knee replacement hernia right hip repiar gall bladder removed Hospitalization History Reason Date(Month/Year) SOB , hospitalized 3 days and then 5x da ys november,december 2021 ER- hospitalized 3x sob 2021 ER- hospitalized 5 days SOB, weak, confu sed 2021
[2025-02-27 09:13] VITALS: BP 135/68; PULSE 62; TEMP 36.9; O2SAT 95
[2025-02-27 10:42] LABS: Hematocrit 38.9 % (37-53); Hemoglobin 11.60 g/dL (11.27-16.99); Mean Corpuscular HGB Conc 29.8 g/dL (30-55); Mean Corpuscular Hemoglobin 26.3 pg (27-33); Mean Corpuscular Volume 88.2 fl (82-101); Nucleated Red Blood Cells % 0 %; Platelet Count 248 10^3/cmm (157-399); Red Blood Count 4.41 10^6/uL (3.85-5.65); White Blood Count 9.36 10^3/uL (3.29-11.43)
--- NOTE | 2025-02-27 10:51 | W.ED.EYEPROB ---
HPI - Eye Problem General: Chief complaint: Eye Problems Stated complaint: eye issues blurry vision Time Seen by Provider: 02/27/25 08:59 Source: patient and family Mode of arrival: wheelchair Limitations: no limitations History of Present Illness: Patient is a 80-year-old male who presents to ED today with complaint of eye crusting and discharge over the past 2 months. He states he will notice his eyes matted shut morning. He will sometimes drain during the day. He does have a small amount of burning. No visual changes. He states he has seen his primary care provider as well as Dr. Franco's office twice. States he has been on lubricating eyedrops with no improvement. chief complaint: other (discharge/burning) Onset (ago): month(s) Location: right eye Eye Symptoms: burning and discharge Place: home Mechanism: none Severity: mild Associated symptoms: Reports no associated symptoms; Denies headache(s), nausea or vomiting Related Data Home Medications ?Medication ?Instructions ?Recorded ?Confirmed ferrous sulfate 325 mg (65 mg 325 mg PO DAILY 11/05/21 01/12/25 iron) tablet finasteride 5 mg tablet 5 mg PO DAILY 11/05/21 01/12/25 metoprolol tartrate 100 mg tablet 50 mg PO BID 11/05/21 01/12/25 nystatin 100,000 unit/gram topical 1 applic topical TID PRN Rash 11/05/21 01/12/25 cream pantoprazole 40 mg tablet,delayed 40 mg PO DAILY 11/05/21 01/12/25 release tamsulosin 0.4 mg capsule 0.8 mg PO DAILY 11/05/21 01/12/25 Previous Rx's ?Medication ?Instructions ?Recorded apixaban 5 mg tablet (Eliquis) 5 mg PO BID #180 tabs 11/11/21 rosuvastatin 10 mg tablet 10 mg PO DAILY #90 tabs 11/11/21 isosorbide mononitrate 30 mg 30 mg PO DAILY #30 tabs 12/04/21 tablet,extended release 24 hr furosemide 20 mg tablet 40 mg (2 x 20 mg) PO DAILY PRN 02/02/22 edema #60 tabs ammonium lactate 12 % topical cream 1 applic topical DAILY #385 grams 03/11/22 clotrimazole-betamethasone 1 1 applic topical BID 4 weeks #15 04/06/23 %-0.05 % topical cream grams dabetic shoes with 3 inserts #1 ea 09/06/24 ASO #1 ea 10/17/24 polymyxin B sulfate 10,000 1 drp ophthalmic (eye) Q3H 7 days 02/27/25 unit-trimethoprim 1 mg/mL eye drops #10 mL Allergies Allergy/AdvReac Type Severity Reaction Status Date / Time adhesive Allergy Intermediate Unknown Verified 02/27/25 09:18 Review of Systems Eyes: Reports: eye discharge; Denies: change in vision, blurry vision, blind spots, photophobia, floaters or seeing flashes ENMT: Denies: nasal discharge, nasal congestion or sinus pain GI: Denies: nausea or vomiting Neuro: Denies: headache(s) PFSH ED PFSH: Medical History Hx of skin cancer, basal cell Hx of carbon monoxide poisoning Volume overload Hypoxemia CHF exacerbation Diabetes 1.5, managed as type 2 Anticoagulation adequate with anticoagulant therapy Acute kidney injury superimposed on chronic kidney disease Dyslipidemia Type 2 diabetes mellitus Benign essential hypertension with target blood pressure below 140/90 Acute kidney injury Diastolic CHF, acute BPH (benign prostatic hyperplasia) Avascular necrosis of femoral head Obesity COPD (chronic obstructive pulmonary disease) Hypertension Diabetes Surgical History Hx of arthroscopic knee surgery bilateral Hx of umbilical hernia repair History of hip surgery x 2 on right History of cholecystectomy Family History Father CAD (coronary artery disease) Mother Perforated viscus Sister CAD (coronary artery disease) Cancer Diabetes Lung disease Brother CAD (coronary artery disease) Denies family history of Clotting disorder Dementia Chronic kidney disease (CKD) Suicide Anesthesia complication Bleeding disorder Stroke Social History Smoking and tobacco/nicotine status: unknown if used tobacco/nicotine Alcohol intake: never Substance/Drug Use: never Physical Exam Const: COMMON NORMALS: no acute distress, average body habitus, patient oriented x3, no limitations, healthy appearing, alert and well nourished GENERAL APPEARANCE: cooperative HENMT: COMMON NORMALS: normocephalic and atraumatic HEAD & SCALP: normal to inspection, normocephalic and atraumatic FACE & SINUS: normal facial exam Eye: COMMON NORMALS: Equal, round and reactive pupils present and EOMs intact bilaterally GENERAL EYE: normal light reflex ALIGNMENT: Yes alignment normal PERIORBITAL: periorbital findings normal EYELID: other (crusted discharge on eyelashes) CONJUNCTIVA: Yes conjunctival abnormal positive right (mild injection) SCLERA: sclerae normal CORNEA: Yes corneas normal PUPIL: Yes Equal, round and reactive pupils present DIRECT OPHTHALMOSCOPY: Yes normal light reflex Neuro: COMMON NORMALS: patient oriented x3 SENSORIUM/ORIENTATION: Yes alert Course Vital Signs: Vital signs: Vital Signs Temperature 98.4 F 02/27/25 09:13 Pulse Rate 62 02/27/25 09:13 Blood Pressure 135/68 02/27/25 09:13 Pulse Oximetry 95 02/27/25 09:13 Oxygen Delivery Me thod Room Air 02/27/25 09:13 MDM - Eye Problem Medical Decision Making Patient here for right eye discharge/matting and burning over the past 2 months. He states he has only been on lubricating eyedrops. Family is requesting that we try opth abx which he has never been on-I think this is reasonable. Recommend he follow up with Dr. Franco' office if no improvement. Medical Records I reviewed the patient's medical records. Lab Data I reviewed the patient's lab results. 02/27/25 10:31 02/27/25 10:31 Laboratory Results WBC 9.36 10^3/uL (3.29-11.43) 02/27/25 10:31 RBC 4.41 10^6/uL (3.85-5.65) 02/27/25 10:31 Hgb 11.60 g/dL (11.27-16.99) 02/27/25 10:31 Hct 38.9 % (37-53) 02/27/25 10:31 MCV 88.2 fl (82-101) 02/27/25 10:31 MCH 26.3 pg (27-33) L 02/27/25 10:31 MCHC 29.8 g/dL (30-55) L 02/27/25 10:31 RDW 14.6 % (12.1-15.1) 02/27/25 10:31 Plt Count 248 10^3/cmm (157-399) 02/27/25 10:31 MPV 9.5 fL (7.4-10.4) 02/27/25 10:31 Neut % (Auto) 71.0 % 02/27/25 10:31 Lymph % (Auto) 18.3 % 02/27/25 10:31 Reynolds % (Auto) 6.6 % 02/27/25 10:31 Eos % (Auto) 2.7 % 02/27/25 10:31 Baso % (Auto) 1.0 % 02/27/25 10:31 Neut # (Auto) 6.65 10^3/uL (1.8-7.7) 02/27/25 10:31 Lymph # (Auto) 1.7 10^3/uL (0.8-4.8) 02/27/25 10:31 Reynolds # (Auto) 0.6 10^3/uL (0.2-0.9) 02/27/25 10:31 Eos # (Auto) 0.3 10^3/uL (0.0-0.8) 02/27/25 10:31 Baso # (Auto) 0.1 10^3/uL (0.0-0.1) 02/27/25 10:31 Nucleated RBC % (auto) 0 % 02/27/25 10: Nucleated RBCs # 0.0 /100WBC 02/27/25 10:31 Sodium 141 mmol/L (136-145) 02/27/25 10:31 Potassium 3.9 mmol/L (3.5-5.1) 02/27/25 10:31 Chloride 104 mmol/L (98-107) 02/27/25 10:31 Carbon Dioxide 27 mmol/L (22-29) 02/27/25 10:31 Anion Gap 13.9 (5-19) 02/27/25 10:31 BUN 14 mg/dL (8-23) 02/27/25 10:31 Creatinine 1.3 mg/dL (0.7-1.2) H 02/27/25 10:31 GFR Calculation Not Reportable 02/27/25 10:31 Glucose 134 mg/dL (65-115) H 02/27/25 10:31 Calculated Osmolality 294 mOsm/kg (285-295) 02/27/25 10:31 Calcium 9.2 mg/dL (8.5-10.5) 02/27/25 10:31 Total Bilirubin 0.3 mg/dL (0.15-1.2) 02/27/25 10:31 AST 14 U/L (0-40) 02/27/25 10:31 ALT 10 U/L (0-41) 02/27/25 10:31 Alkaline Phosphatase 67 U/L (40-130) 02/27/25 10:31 Total Protein 6.9 g/dL (6.6-8.7) 02/27/25 10:31 Albumin 3.8 g/dL (3.5-5.2) 02/27/25 10:31 Globulin 3.1 g/dL (1.3-4.6) 02/27/25 10:31 No radiology studies performed this visit Discharge Plan Discharge Patient Disposition: Home Clinical Impression: Discharge of right eye Condition: Stable Prescriptions: New polymyxin B sulf-trimethoprim 10,000 unit- 1 mg/mL drops 1 drp ophthalmic (eye) Q3H 7 Days Qty: 10 0RF Rx Instructions: while awake; do not exceed 6 doses in 24 hours No Action (DME) dabetic shoes with 3 inserts See Rx Instructions .Route .MEDSUPPLY Qty: 1 0RF Rx Instructions: As directed ammonium lactate 12 % cream 1 applic topical DAILY Qty: 385 3RF Rx Instructions: neck down daily clotrimazole-betamethasone 1-0.05 % cream 1 applic topical BID 28 Days Qty: 15 0RF (DME) ASO See Rx Instructions .Route .MEDSUPPLY Qty: 1 0RF Rx Instructions: As directed to the PR isosorbide mononitrate 30 mg tablet extended release 24 hr 30 mg PO DAILY Qty: 30 5RF metoprolol tartrate 100 mg Tablet 50 mg PO BID tamsulosin 0.4 mg Capsule 0.8 mg PO DAILY pantoprazole 40 mg Tablet,Delayed Release (Dr/Ec) 40 mg PO DAILY ferrous sulfate 325 mg (65 mg iron) Tablet 325 mg PO DAILY nystatin 100,000 unit/gram Cream 1 applic TOPICAL TID PRN (Reason: Rash) finasteride 5 mg Tablet 5 mg PO DAILY Eliquis 5 mg tablet 5 mg PO BID Qty: 180 0RF rosuvastatin 10 mg Tablet 10 mg PO DAILY Qty: 90 0RF furosemide 20 mg tablet 40 mg PO DAILY PRN (Reason: edema) Qty: 60 3RF Discharge Orders: Discharge ED (Routine); Ordered 02/27/25 Ordered By: Queenie Westbrook Referrals: Paula Che APRN [Primary Care Provider, Family Practice] Patient Instructions: Patient Portal & Antwan Instructions Activity Restrictions/Additional Instructions: As we discussed please continue to follow up with ophthalmology if symptoms persist. Print Language: Malaysian Coding Level of Care Code ED File Conversion Operator for Umesh Mercado
[2025-02-27 10:59] LABS: Alanine Aminotransferase 10 U/L (0-41); Albumin Level 3.8 g/dL (3.5-5.2); Alkaline Phosphatase 67 U/L (40-130); Anion Gap 13.9 (5-19); Aspartate Amino Transferase 14 U/L (0-40); Blood Urea Nitrogen 14 mg/dL (8-23); Calcium 9.2 mg/dL (8.5-10.5); Carbon Dioxide 27 mmol/L (22-29); Chloride 104 mmol/L (98-107); Creatinine Clr Calc Pharmacy 57.7227; Globulin 3.1 g/dL (1.3-4.6); Glucose 134 mg/dL (65-115); Osmolality Calculated 294 mOsm/kg (285-295); Potassium 3.9 mmol/L (3.5-5.1); Sodium 141 mmol/L (136-145); Total Protein 6.9 g/dL (6.6-8.7)
== END 2025-02-27 11:13 | disposition home or self-care (01) ==
PROVIDERS: Family Medicine; Emergency Provider Physician Assistant; PCP Nurse Practitioner Family
DX: H57.9 Unspecified disorder of eye and adnexa (principal)
CPT/HCPCS: 36415; 80053; 85025; 99283

== ENCOUNTER → 2025-03-09 10:59 | Outpatient (BNVA) | payer OTHER, SELFPAY | PROVIDERS: PCP Family Medicine Geriatric Medicine; Visit Provider Podiatrist Foot & Ankle Surgery | DX: B35.1 Tinea unguium (principal); R60.9 Edema, unspecified; L84 Corns and callosities; E11.9 Type 2 diabetes mellitus without complications; B35.3 Tinea pedis; M95.8 Other specified acquired deformities of musculoskeletal system; E11.69 Type 2 diabetes mellitus with other specified complication | CPT/HCPCS: 99214 ==

== ENCOUNTER → 2025-03-30 13:29 | Outpatient (BNVA) | payer OTHER, SELFPAY | PROVIDERS: PCP Family Medicine Geriatric Medicine; Visit Provider Podiatrist Foot & Ankle Surgery | DX: E11.69 Type 2 diabetes mellitus with other specified complication (principal); B35.1 Tinea unguium; B35.3 Tinea pedis; M95.8 Other specified acquired deformities of musculoskeletal system; R60.9 Edema, unspecified; L84 Corns and callosities | CPT/HCPCS: 11721; 99214 ==

== ENCOUNTER → 2025-04-18 09:48 | Outpatient (BNVA) | payer OTHER, SELFPAY | PROVIDERS: PCP Family Medicine Geriatric Medicine; Visit Provider Internal Medicine Cardiovascular Disease | DX: I48.21 Permanent atrial fibrillation (principal); Z79.01 Long term (current) use of anticoagulants; I44.7 Left bundle-branch block, unspecified; I25.10 Atherosclerotic heart disease of native coronary artery without angina pectoris; R94.39 Abnormal result of other cardiovascular function study; Z01.810 Encounter for preprocedural cardiovascular examination; I11.0 Hypertensive heart disease with heart failure; I50.33 Acute on chronic diastolic (congestive) heart failure; Z87.891 Personal history of nicotine dependence; R07.9 Chest pain, unspecified | CPT/HCPCS: 93005; 99214 ==

== ENCOUNTER 2025-04-21 07:55 | Outpatient (CLI) | payer OTHER, SELFPAY ==
--- NOTE | 2025-04-21 | ECG_ITS ---
[employer] Test Date: 2025-04-21 Pat Name: Clint Quevedo Department: Room: Gender: Male Mop Man: : 1945 Requested By: Jose Fuentes Order Number: [id number] Gino MD: Jose Fuentes M.D. Interpretive Statements Procedure: A total of 0.4 mg of Lexiscan was infused over 20 seconds. The stress phase was continued for a total of 5 minutes. Sestamibi was injected 20 seconds after the Lexiscan infusion. Findings:The patient's resting blood pressure was 160/81 with a heart rate of 55. After Lexiscan injection the patient blood pressure gradually decreased to 137/88. The patient's heart rate increased to a maximum of 86 bpm. In recovery the patient's blood pressure was 167/84 with a heart rate of 68 bpm. The resting EKG showed sinus bradycardia with a heart rate of 55 and an intraventricular conduction delay. There were occasional premature ventricular contractions during exercise that resolved in recovery. There were no new ST T wave abnormalities. Conclusion: 1. Normal EKG response to Lexiscan infusion 2. No Lexiscan induced chest pain. 3. Normal blood pressure and heart rate response. Occasional premature ventricular contractions. 4. Nuclear myocardial perfusion scan pending; see separate report. Electronically Signed On 04-21-2025 13:05:00 CDT by Jose Fuentes M.D. [email or web address]
[2025-04-21 08:13] VITALS: BMI 52.2
--- NOTE | 2025-04-21 08:24 | NMCV_ITS ---
NM tyler perf SPECT r/s* [id number] Clint Quevedo Age: 80 Gender: M : 1945 Exam Date: 04/21/2025 08:47 Ordering Phys: Jose Fuentes MD ([email or web address]) Technologist: ANUPAM Webb Exam Location: [facility] Indications: cp STRESS TEST Please see separate stress test report in [facility] for full findings IMAGE PROTOCOL Rest/Stress 1 Lexiscan Day Radiopharmaceutical Dose (mCi) Administration Site Administered by Rest: Tc-99m 10.5 IV Michaela Win ORDER ENTRY CLERK Sestamibi Stress:Tc-99m 32.9 IV Michaela Win, ORDER ENTRY CLERK Sestamibi Rest: 21-Apr-2025 60 Discovery 630 Stress: 21-Apr-2025 30 Discovery 630 Supine position only as patient was unable to lay prone. . 0.4mg Lexiscan. SPECT RESULTS Technical Quality: Good Raw Data Analysis: Soft tissue attenuation Image Corrections: No attenuation or motion correction applied Summed Stress Score: 3 Summed Rest Score: 15 Summed Difference Score: 0 PERFUSION FINDINGS There is a large area of severely reduced tracer counts in the inferior wall which is worse on the rest images compared to stress images. There is normal wall motion in this area on the gated images making this finding most consistent with attenuation artifact and not infarction. FUNCTIONAL RESULTS (calculated via Gated SPECT) Stress Image LV EF (%): 60 Stress EDV (mL):136 TID: 0.91 Stress ESV (mL):54 FUNCTIONAL FINDINGS: Normal left ventricular systolic function, EF 60% IMPRESSIONS 1. Myocardial perfusion images are negative for infarction and ischemia. There is evidence of diaphragmatic attenuation artifact in the inferior wall. 2. Normal left ventricular systolic function, EF 60% Jose Fuentes MD, FACC (Electronically Signed) Final Date: 21 April 2025 12:54 S
[2025-04-21 09:55] VITALS: BP 133/84; PULSE 78
== END 2025-04-21 07:56 | disposition home or self-care (01) ==
PROVIDERS: PCP Family Medicine Geriatric Medicine; Visit Provider Internal Medicine Cardiovascular Disease
DX: R07.9 Chest pain, unspecified (principal); I25.10 Atherosclerotic heart disease of native coronary artery without angina pectoris; J98.6 Disorders of diaphragm
CPT/HCPCS: 36415; 78452; 93017; 96374; A9500; J2785

== ENCOUNTER 2025-04-27 09:07 | Outpatient (CLI) | payer OTHER, SELFPAY ==
--- NOTE | 2025-04-27 10:00 | USCV_ITS ---
Clint Quevedo Age: 80 Gender: M : 1945 Exam Date: 04/27/2025 10:00 Ordering Phys: Jose Fuentes MD ([email or web address]) Technologist: Exam Location: [facility] Indication: sob cp BP: 140 / 80 HR: 62 Rhythm: Sinus Technical Quality: Adequate MEASUREMENTS (Male / Female) Normal Values 2D ECHO LV Diastolic Diameter PLAX 3.9 cm 4.2 - 5.9 / 3.9 - 5.3 cm IVS Diastolic Thickness 1.4 cm 0.6 - 1.0 / 0.6 - 0.9 cm IVS Systolic Thickness 2.0 cm LVPW Diastolic Thickness 1.4 cm 0.6 - 1.0 / 0.6 - 0.9 cm LVPW Systolic Thickness 1.9 cm LVOT Diameter 2.3 cm LV Ejection Fraction 2D Teich 62.4 % LV Ejection Fraction MOD 4C 44.9 % LV Ejection Fraction MOD 2C 52.8 % LV Ejection Fraction 2C AL 55.9 % LA Diameter 3.9 cm RA Systolic Volume 4C AL 72.0 ml RA Systolic Volume 4C MOD 66.0 ml Aorta at Sinotubular Diameter 2.8 cm IVC Diameter 1.5 cm M-MODE LA Ao Ratio MM 1.1 AV Cusp Separation MM 2.1 cm DOPPLER AV Peak Velocity 203.0 cm/s LVOT Peak Velocity 90.0 cm/s AV Area Cont Eq vti 2.0 cm squared AV Area Cont Eq pk 1.8 cm squared MV Peak Velocity 134.0 cm/s TR Peak Velocity 250.0 cm/s TR Peak Gradient 25.0 mmHg TV Peak E Velocity 123.0 cm/s PV Peak Velocity 117.0 cm/s FINDINGS Left Ventricle Normal left ventricular size and systolic function, EF 62% . No regional wall motion abnormalities. Right Ventricle Mildly dilated with a normal ejection fraction Right Atrium Appears to be mildly dilated Left Atrium Possibly of normal size IA Septum Normal interatrial septum. Mitral Valve Trace mitral valve regurgitation. Aortic Valve No gross abnormalities noted Tricuspid Valve Trace tricuspid valve regurgitation. Pulmonic Valve Pulmonic valve not well visualized. Pericardium No pericardial effusion. Aorta Normal size aortic root and proximal ascending aorta. IVC Normal inferior vena cava. CONCLUSIONS Normal left ventricular size and systolic function, EF 62% . No regional wall motion abnormalities. Trace mitral valve regurgitation. Trace tricuspid valve regurgitation. Estimated pulmonary artery peak systolic pressure possibly within normal limits, 28 mmHg. No significant valvular abnormalities. There is no pericardial effusion. No similar previous studies are available for comparison Dr Vaibhav Hernandez MD FAC (Electronically Signed) Final Date: 29 April 2025 13:55 S
== END 2025-04-27 09:08 | disposition home or self-care (01) ==
LOC: RAD 09:09
PROVIDERS: PCP Family Medicine Geriatric Medicine; Visit Provider Internal Medicine Cardiovascular Disease
DX: I25.10 Atherosclerotic heart disease of native coronary artery without angina pectoris (principal)
CPT/HCPCS: 93306